=== PATIENT | male | born 1965 | race Two or more races ===

== ENCOUNTER → 2017-07-28 | Outpatient (REF) | payer BC ==
[~2017-07-28] MED LIST: BACITAB PO; CEPA0.1S MT; CEPA5.4L2 MT; CLIN150C14 PO; LIDO1SOL7 SSP; MOTR200T44 PO; TOPI50TA9 PO
[2017-08-01 08:12] LABS: HSV TYPE I IgM AB <1:10 titer (<1:10); HSV TYPE II IgM ABY <1:10 titer (<1:10)
== END ==
LOC: M SFHCLERA 13:51
PROVIDERS: ATTEND Nurse Practitioner Family
DX: K13.79 Other lesions of oral mucosa (principal)

== ENCOUNTER → 2017-08-24 | Outpatient (CLI) | payer BC ==
[2017-08-24 12:24] LABS: BLOOD UREA NITROGEN 16 MG/DL (7-18); CREATININE FOR GFR 0.81 MG/DL (0.70-1.30); GLOMERULAR FILTRATION RATE > 60.0 (>56)
== END ==
LOC: M SMT 11:08
PROVIDERS: ATTEND Physician Assistant Medical
DX: I11.9 Hypertensive heart disease without heart failure (principal)

== ENCOUNTER 2019-12-09 05:30 | Emergency (ER) | payer BC, OTHER, SELFPAY ==
[~2019-12-09 05:30] MED LIST changes: -LIDO1SOL7 SSP; +LIDO1SOL8 SSP
--- NOTE | 2019-12-09 06:04 | REPVR ---
PROCEDURE INFORMATION: Exam: CT Head Without Contrast Exam date and time: 12/09/2019 5:49 AM Age: 54 years old Clinical indication: Numbness / parasthesia; Additional info: Stroke symptoms TECHNIQUE: Imaging protocol: Computed tomography of the head without contrast. Radiation optimization: All CT scans at this facility use at least one of these dose optimization techniques: automated exposure control; mA and/or kV adjustment per patient size (includes targeted exams where dose is matched to clinical indication); or iterative reconstruction. Other technique: STROKE PROTOCOL was implemented. COMPARISON: No relevant prior studies available. FINDINGS: Brain: Focal multi lobular marginated intracranial hemorrhage of the left basal ganglia and extending laterally. Hematoma measures 2.9 by 2.7 by 2.7 cm. Likely developing rim of edema. No midline shift. Ventricles: Normal. No ventriculomegaly. Bones/joints: Unremarkable. No acute fracture. Sinuses: Mucosal thickening and/or mucous retention cyst right maxillary sinus. Mastoid air cells: Visualized mastoid air cells are well aerated. Soft tissues: Unremarkable. Vasculature: Intracranial vascular calcification. Other findings: Mild hemispheric volume loss. IMPRESSION: 1. Left acute basal ganglia intracranial hemorrhage. 2. Mild hemispheric volume loss. 3. Intracranial vascular calcification. Electronically signed by: Shereen Vidal On 12/09/2019 06:06:22 AM
[2019-12-09 06:12] LABS: BASO % 0.7 % (0.0-1.0); EOS # 0.2 10^3/uL (0.0-0.5); EOS % 3.4 % (0.0-3.0); HEMATOCRIT 36.2 % (42.0-52.0); HEMOGLOBIN 11.8 g/dl (13.5-17.5); LYMPH # 1.7 10^3/uL (1.5-5.0); LYMPH % 28.3 % (24.0-44.0); MEAN CORPUSCULAR HEMOGLOBIN 30.2 pg (27.0-33.0); MEAN CORPUSCULAR HGB CONC 32.6 g/dl (32.0-36.5); MEAN CORPUSCULAR VOLUME 92.6 fl (80.0-96.0); MONO # 0.6 10^3/uL (0.0-0.8); NEUTROPHILS # 3.6 10^3/uL (1.5-8.5); NEUTROPHILS % 58.3 % (36.0-66.0); PLATELET COUNT, AUTOMATED 145 10^3/uL (150-450); RED BLOOD COUNT 3.91 10^6/uL (4.30-6.10); WHITE BLOOD COUNT 6.1 10^3/uL (4.0-10.0)
[2019-12-09] MEDS ORDERED: niCARdipine IV 40 MG in IV 1 EA IV SCH (06:15)
[2019-12-09 06:21] LABS: INR 1.11
[2019-12-09 06:22] LABS: PARTIAL THROMBOPLASTIN TIME 27.8 SECONDS (25.0-38.4)
[2019-12-09 06:32] LABS: CK-MB VALUE MASS 1.7 NG/ML (<3.6); CPK CREATINE PHOSPHOKINASE 139 U/L (39-308); MB/CK RELATIVE INDEX 1.22 (< OR =4); TROPONIN I < 0.02 NG/ML (< 0.10)
[2019-12-09 07:11] VITALS: BP 147/84
--- NOTE | 2019-12-09 07:27 | REP ---
Portable chest, 06:00 a.m., single AP view with the patient upright: Comparison is the chest CT dated 02/10/2011. The lung sharif are clear. The cardiac size is normal. The paulina, mediastinum, and skeletal structures are unremarkable. Impression: Negative portable chest. Electronically Signed by Zurdo Cardenas MD 12/09/2019 07:18 A
--- NOTE | 2019-12-09 12:35 | ECGEPIP ---
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
== END 2019-12-09 07:13 | disposition short-term general hospital (02) ==
LOC: M ED 05:30
DX: I61.9 Nontraumatic intracerebral hemorrhage, unspecified (principal); I45.89 Other specified conduction disorders; I67.2 Cerebral atherosclerosis; R47.9 Unspecified speech disturbances; I10 Essential (primary) hypertension; E78.5 Hyperlipidemia, unspecified; E66.9 Obesity, unspecified; Z98.84 Bariatric surgery status

== ENCOUNTER 2019-12-14 15:21 | Inpatient (IN) | payer SELFPAY ==
[~2019-12-14] VITALS: Ht 182.9 cm; Wt 140.2 kg
[~2019-12-14 15:21] MED LIST changes: -LIDO1SOL8 SSP; +LIDO2SOL17 SSP
[2019-12-14 17:10] VITALS: BP 132/92
--- NOTE | 2019-12-14 18:09 | HPEPDOC ---
General Date of Admission 12/14/19 Date of Service: Dec 14, 2019 Chief Complaint The patient is a 54-year-old male admitted with a reason for visit of Hemorrhagic Cva. Source: Patient Exam Limitations: No limitations Timing/Duration: Day(s), Week(s) Severity: Moderate Associated Symptoms: Weakness History of Present Illness Patient is 54 years old male with past mental history of diabetes, hypertension, gastric bypass surgery in 2011, hemorrhagic stroke, morbid obesity was transferred to [facility] from [facility] for physical therapy and acute rehabilitation evaluation. On 12/09/19 patient was diagnosed with left basal ganglia hemorrhagic stroke with right sided hemiparesis. Head CT showed hyperdensity in the left basal ganglia 3.1 cm to 2.4 cm with surrounding edema. Most likely patient developed hemorrhagic stroke due to uncontrolled hypertension. When I saw patient in the room patient stated that he denied any fever, chills, nausea, vomiting, diarrhea or dysuria. Home Medications Scheduled Amlodipine Besylate (Amlodipine Besylate) 10 Mg Tablet, 10 MG PO DAILY, (Reported) Lisinopril (Lisinopril) 5 Mg Tablet, 5 MG PO DAILY, (Reported) Scheduled PRN Docusate Sodium (Colace) 100 Mg Capsule, 100 MG PO BID PRN for CONSTIPATION, (Reported) Allergies Coded Allergies: No Known Drug Allergies (Verified Allergy, Unknown, 12/09/19) Past Medical History Medical History Hypertension, morbid obesity, diabetes Surgical History Gastric bypass surgery in 2011 Family History Father from emphysema, mother from heart attack Social History * Smoker: Denies Alcohol: Denies Drugs: denies A-FIB/CHADSVASC A-FIB History Current/History of A-Fib/PAF?: No Current PO Anticoag Therapy: No Review of Systems Constitutional: Denies: Chills, Fever Eyes: Denies: Pain, Vision change ENT: Denies: Head Aches Skin: Denies: Rash, Lesions Pulmonary: Denies: Dyspnea, Cough Cardiovascular: Denies: Chest Pain Gastrointestinal: Denies: Nausea Genitourinary: Denies: Frequency Hematologic: Denies: Bruising Endocrine: Denies: Polydipsia, Polyphagia Musculoskeletal: Denies: Neck Pain Neurological: Reports: Weakness (right-sided hemiparesis,) Psych: Reports: Mood Normal Physical Examination General Exam: Positive: Alert, Cooperative Eye Exam: Positive: PERRLA ENT Exam: Positive: Atraumatic Neck Exam: Positive: Supple; Negative: JVD Chest Exam: Positive: Clear to auscultation Heart Exam: Positive: Rate Normal Telemetry: Positive: No significant arrhythmia Abdomen Exam: Positive: Normal bowel sounds Extremity Exam: Negative: Clubbing, Cyanosis Skin Exam: Positive: Nl turgor and temperature Neuro Exam: Positive: Other (right-sided hemiparesis, right sided mouth droop, sensation intact, dysarthria) Psych Exam: Positive: Mental status NL Vital Signs RR 14 Assessment/Plan Patient is 54 years old male with past mental history of diabetes, hypertension, gastric bypass surgery in 2011, hemorrhagic stroke, morbid obesity was transferred to [facility] from [facility] for physical therapy and acute rehabilitation evaluation. Problems (1) Intracerebral hemorrhage Status: Resolved Problem Text: PMR evaluation Most likely patient developed intracranial hemorrhage due to uncontrolled hypertension Continue to control blood pressure (2) Diabetes Status: Chronic Problem Text: Recent HbA1c 6.2, patient was diagnosed with prediabetes Insulin sliding scale Diabetes diet (3) HTN (hypertension) Status: Chronic Problem Text: Continue amlodipine and lisinopril, atorvastatin Will check lipid profile Plan / VTE VTE Prophylaxis Ordered?: Yes KAT AUGUSTE DO Dec 14, 2019 18:09
[2019-12-14] MEDS ORDERED: DEXTROSE 50% 50 ML SYRINGE IV PRN (18:15)
[2019-12-14] MEDS ORDERED: GLUCAGON FOR INJ 1 MG VIAL (J1610) SC PRN (18:15)
[2019-12-14] MEDS ORDERED: GLUCOSE 4 GM CHEW TABLET PO PRN (18:15)
[2019-12-14] MEDS ORDERED: LISI-542 PO (18:38)
[2019-12-14] MEDS ORDERED: COLA100C5 PO (18:38)
[2019-12-14] MEDS ORDERED: AMLO10TA5 PO (18:38)
[2019-12-14 19:43] LABS: CHOLESTEROL RISK RATIO 3.609 (<5)
[2019-12-14] MEDS: HumaLOG INSULIN (NovoLOG) PER UNIT SC SCH (20:52)
[2019-12-14 22:00] VITALS: BP 122/76
[2019-12-15] MEDS ORDERED: DOCUSATE SODIUM 100 MG CAP PO PRN (05:00)
[2019-12-15] MEDS ORDERED: MOM 30ML SUSPENSION UDC PO PRN (05:00)
[2019-12-15] MEDS ORDERED: SENOKOT S TAB PO PRN (05:00)
[2019-12-15 06:00] VITALS: BP 134/78
[2019-12-15 06:15] LABS: HEMATOCRIT 46.2 % (42.0-52.0); HEMOGLOBIN 14.8 g/dl (13.5-17.5); MEAN CORPUSCULAR HEMOGLOBIN 29.8 pg (27.0-33.0); PLATELET COUNT, AUTOMATED 190 10^3/uL (150-450); RED BLOOD COUNT 4.97 10^6/uL (4.30-6.10); WHITE BLOOD COUNT 8.9 10^3/uL (4.0-10.0)
[2019-12-15 06:25] LABS: BLOOD UREA NITROGEN 28 MG/DL (7-18); CALCIUM LEVEL 8.9 MG/DL (8.5-10.1); CARBON DIOXIDE LEVEL 28 MEQ/L (21-32); CHLORIDE LEVEL 102 MEQ/L (98-107); CREATININE FOR GFR 0.86 MG/DL (0.70-1.30); GLOMERULAR FILTRATION RATE > 60.0 (>56); GLUCOSE, FASTING 134 MG/DL (70-100); POTASSIUM SERUM 4.2 MEQ/L (3.5-5.1); SODIUM LEVEL 137 MEQ/L (136-145)
[2019-12-15] MEDS ORDERED: ENOXAPARIN 40 MG/0.4 ML SYRINGE (J1650) SC SCH (09:00)
[2019-12-15] MEDS: HumaLOG INSULIN (NovoLOG) PER UNIT SC SCH ×4 (09:06→21:00)
[2019-12-15] MEDS: HEPARIN SOD (PORCINE) 5000 UNITS/ML VIAL (J1644 PER 1000UNITS) SQ SCH ×2 (09:08→21:15)
[2019-12-15] MEDS: amLODIPine 10 MG TAB PO SCH (09:08)
[2019-12-15] MEDS: ATORVASTATIN 20 MG TAB PO SCH (09:08)
[2019-12-15] MEDS: lisinopriL 5 MG TAB PO SCH (09:09)
[2019-12-15] MEDS ORDERED: HYDROCORTISONE 1% CREAM 30 GM TOP ONE (13:00)
[2019-12-15 14:00] VITALS: BP 119/64
--- NOTE | 2019-12-15 15:03 | IPNPDOC ---
Text Note Date of Service The patient was seen on 12/15/19. NOTE Subjective: Patient complains of depressed mood, lack of energy, lack of motiv ation. He is very sad about what happened with him. Objective: Morbidly obese male in moderate distress HEENT: Normocephalic, atraumatic. Mucous members moist and pink CARDIOVASCULAR: Regular rate and rhythm. No murmurs, rubs or gallops. Radial pulses are intact. There is no lower extremity edema LUNGS: Diminished lung sounds ABDOMEN: Abdomen is soft and nontender. MUSCULOSKELETAL: Range of motion is intact in all 4 extremities NEUROLOGICAL: Right hemiparesis, right sided mouth droop, sensation intact, dysarthria Assessment/Plan Patient is 54 years old male with past mental history of diabetes, hypertension, gastric bypass surgery in 2011, hemorrhagic stroke, morbid obesity was transferred to [facility] from [facility] for physical therapy and acute rehabilitation evaluation. Problems Intracerebral hemorrhage/CVA PMR evaluation Most likely patient developed intracranial hemorrhage due to uncontrolled hypertension Continue to control blood pressure (2) Diabetes Recent HbA1c 6.2, patient was diagnosed with prediabetes Insulin sliding scale Diabetes diet (3) HTN (hypertension) Blood pressures under control Continue amlodipine, lisinopril, atorvastatin Depression Patient will benefit from participation in the group therapy I started sertraline VS,Fishbone, I+O VS, Fishbone, I+O Laboratory Tests 12/15/19 05:30 Vital Signs Date Time Temp Pulse Resp B/P (MAP) Pulse Ox O2 Delivery O2 Flow Rate FiO2 12/15/19 14:00 99.0 86 18 119/64 (82) 94 Room Air I&O- Last 24 Hours up to 6 AM 12/15/19 05:59 Intake Total 360 ml Output Total 450 ml Balance -90 ml KAT AUGUSTE DO Dec 15, 2019 15:03
[2019-12-15] MEDS ORDERED: SERTRALINE HCL 25 MG TABLET PO ONE (16:00)
[2019-12-15 22:00] VITALS: BP 127/80
[2019-12-16 06:00] VITALS: BP 124/77
[2019-12-16] MEDS: HumaLOG INSULIN (NovoLOG) PER UNIT SC SCH ×4 (08:36→21:00)
[2019-12-16] MEDS: HEPARIN SOD (PORCINE) 5000 UNITS/ML VIAL (J1644 PER 1000UNITS) SQ SCH ×2 (08:36→21:56)
[2019-12-16] MEDS: ATORVASTATIN 20 MG TAB PO SCH (08:39)
[2019-12-16] MEDS: amLODIPine 10 MG TAB PO SCH (08:39)
[2019-12-16] MEDS: SERTRALINE HCL 25 MG TABLET PO SCH (08:40)
[2019-12-16] MEDS: lisinopriL 5 MG TAB PO SCH (08:40)
[2019-12-16] MEDS ORDERED: VENLAFAXINE 37.5 MG TAB PO SCH (09:00)
[2019-12-16 14:00] VITALS: BP 130/79
--- NOTE | 2019-12-16 14:55 | IPNPDOC ---
Subjective Date Seen The patient was seen on 12/16/19. Subjective Chief Complaint/HPI Mr Cho is a 54 year old male who was transferred to [facility] from [facility] for acute rehab secondary to a L-sided Hemorrhagic CVA on Monday. Pt stated he was at home when he noticed that his right side was numb and had become paralyzed. Pt stated he has seen no improvement in his right sided paralysis since Monday. He reported he was transported to the ED at [facility] within 20 minutes of Sx onset. Pt is seen sitting up in a recliner in his room. He has denied any new or worsening symptoms at this time. General: Denies: Chills, Night Sweats, Fatigue, Malaise Constitutional: Denies: Chills, Fever, Night Sweats Eyes: Denies: Pain ENT: Denies: Head Aches Skin: Denies: Rash Pulmonary: Denies: Dyspnea, Cough Cardiovascular: Denies: Chest Pain, Palpitations, Orthopnea, Paroxysmal Noc. Dyspnea, Lt Headedness Gastrointestinal: Denies: Nausea, Vomiting, Abdominal Pain, Diarrhea, Constipation Genitourinary: Denies: Dysuria, Retention Hematologic: Denies: Bruising Musculoskeletal: Denies: Neck Pain, Back Pain, Joint Pain, Muscle Pain, Spasms Neurological: Reports: Weakness, Numbness, Change in speech; Denies: Confusion Psych: Reports: Mood Normal Objective Physical Examination General Exam: Positive: Alert, Cooperative, No Acute Distress Eye Exam: Positive: Conjunctiva & lids normal; Negative: Sclera icteric ENT Exam: Positive: Atraumatic, Mucous membr. moist/pink, Pharynx Normal, Tongue Midline Neck Exam: Positive: Supple; Negative: JVD, thyromegaly Chest Exam: Positive: Clear to auscultation, Normal air movement Heart Exam: Positive: Rate Normal, Regular Rhythm, Normal S1, Normal S2 Telemetry: Positive: No significant arrhythmia Abdomen Exam: Positive: Normal bowel sounds, Soft; Negative: Tenderness Extremity Exam: Positive: Edema (b/l LEs); Negative: Clubbing, Cyanosis Skin Exam: Positive: Nl turgor and temperature Neuro Exam: Positive: Other (right-sided hemiparesis, right sided mouth droop, sensation intact, dysarthria); Negative: Normal Gait, Normal Speech, Strength at 5/5 X4 ext (rigth sided hemiparesis ) Psych Exam: Positive: Mood NL Assessment /Plan Assessment Mr Cho is a 54 year old male who was transferred to [facility] from [facility] for acute rehab secondary to a Hemorrhagic CVA on Monday. Pt stated he was at home when he noticed that his right side was numb and had become paralyzed. Pt stated he has no improvement in his right sided paralysis since Monday. He reported he was transported to the ED at [facility] within 20 minutes of Sx onset. Pt has a PMHx which includes: DM, HTN, Morbid obesity with gastric bypass 2011, Hemorrhagic stroke. CT Head w/out contrast IMPRESSION: "1. Left acute basal ganglia intracranial hemorrhage. 2. Mild hemispheric volume loss. 3. Intracranial vascular calcification." Left CVA, with right sided hemiparesis - likely 2/2 uncontrolled HTN - continue to maintain good BP control - ARU - pt would be a great referral for ARU, however he is self-pay. Honey botello check to see if any services are available for him within the hospital. HTN - currently well-controlled - continue Amlodipine, Lisinopril HLD - LDL 93; goal <70 with recent CVA and DM - Recommend, increasing dietary fiber; close re-check with PCP to ensure pt attains goal or medications adjusted prn DMII - continue ISS with achs - continue diabetic diet Depression - currently on Sertraline 25mg. Will need outpt f/u within 6 weeks. Plan/VTE VTE Prophylaxis Ordered?: Yes (Heparin ) VS, I&O, 24H, Fishbone Vital Signs/I&O Vital Signs Date Time Temp Pulse Resp B/P (MAP) Pulse Ox O2 Delivery O2 Flow Rate FiO2 12/16/19 08:39 149/91 12/16/19 06:00 98.7 70 20 93 Room Air I&O- Last 24 Hours up to 6 AM 12/16/19 06:00 Intake Total 1060 ml Output Total 1325 ml Balance -265 ml Laboratory Data 24H LABS Laboratory Tests 2 12/15/19 16:55: Bedside Glucose (Misc Panel) 102 12/15/19 20:34: Bedside Glucose (Misc Panel) 130H 12/16/19 06:02: Bedside Glucose (Misc Panel) 127H 12/16/19 11:27: Bedside Glucose (Misc Panel) 146H BERTRAM VARGAS PA-C Dec 16, 2019 14:24
[2019-12-16 22:00] VITALS: BP 129/77
[2019-12-17 06:00] VITALS: BP 131/79
[2019-12-17 08:53] VITALS: BP 131/79
[2019-12-17] MEDS: amLODIPine 10 MG TAB PO SCH (08:53)
[2019-12-17] MEDS: lisinopriL 5 MG TAB PO SCH (08:53)
[2019-12-17] MEDS: SERTRALINE HCL 25 MG TABLET PO SCH (08:53)
[2019-12-17] MEDS: ATORVASTATIN 20 MG TAB PO SCH (08:53)
[2019-12-17] MEDS: HumaLOG INSULIN (NovoLOG) PER UNIT SC SCH ×2 (08:54→12:15)
[2019-12-17] MEDS: HEPARIN SOD (PORCINE) 5000 UNITS/ML VIAL (J1644 PER 1000UNITS) SQ SCH (08:54)
[2019-12-17] MEDS ORDERED: SERT25TA21 PO (14:37)
[2019-12-17] MEDS ORDERED: SENN-52 PO (14:37)
[2019-12-17] MEDS ORDERED: ATOR1TAB21 PO (14:37)
[2019-12-17] MEDS ORDERED: MOM30SS2 PO (14:37)
--- NOTE | 2019-12-17 19:29 | DS.PDOC ---
Discharge Summary General Date of Admission Dec 14, 2019 at 17:34 Date of Discharge 12/17/19 Discharge Summary PROCEDURES PERFORMED DURING STAY: [None]. DISCHARGE DIAGNOSES: Left basal ganglia hemorrhagic stroke with right sided hemiplegia Newly diagnosed hypertension Morbid obesity Prediabetes. Depression Hyperlipidemia COMPLICATIONS/CHIEF COMPLAINT: Htn/Intracerebral Hemorrhage. HISTORY OF PRESENT ILLNESS: see history and physical HOSPITAL COURSE: Mr Cho is a 54 year old male who was transferred to [facility] from [facility] for acute rehab secondary to a Hemorrhagic CVA on Monday. Pt stated he was at home when he noticed that his right side was numb and had become paralyzed. Pt stated he has no improvement in his right sided paralysis since Monday. He reported he was transported to the ED at [facility] within 20 minutes of Sx onset. Pt has a PMHx which includes: DM, HTN, Morbid obesity with gastric bypass 2011, Hemorrhagic stroke. CT Head w/out contrast IMPRESSION: "1. Left acute basal ganglia intracranial hemorrhage. 2. Mild hemispheric volume loss. 3. Intracranial vascular calcification." Left CVA, with right sided hemiparesis - likely 2/2 uncontrolled HTN - continue to maintain good BP control - To ARU HTN - currently well-controlled - continue Amlodipine, Lisinopril HLD - LDL 93; goal <70 with recent CVA and DM - Recommend, increasing dietary fiber; close re-check with PCP to ensure pt attains goal or medications adjusted prn Prediabetes - continue ISS with achs - continue diabetic diet - Aic of 6.2 Depression - currently on Sertraline 25mg. Will need outpt f/u within 6 weeks. Morbid obesity BMI of 41.9 dietary and lifestyle modification DISCHARGE MEDICATIONS: Please see below. ALLERGIES: Please see below. PHYSICAL EXAMINATION ON DISCHARGE: VITAL SIGNS: Please see below. General Exam: Positive: Alert, Cooperative, No Acute Distress Eye Exam: Positive: Conjunctiva & lids normal; facial deviation to left. Negative: Sclera icteric ENT Exam: Positive: Atraumatic, Mucous membr. moist/pink, Pharynx Normal, Tongue Midline Neck Exam: Positive: Supple; Negative: JVD, thyromegaly Chest Exam: Positive: Clear to auscultation, Normal air movement Heart Exam: Positive: Rate Normal, Regular Rhythm, Normal S1, Normal S2 Telemetry: Positive: No significant arrhythmia, no rub , murmur or gallop Abdomen Exam: Positive: Normal bowel sounds, Soft; Negative: Tenderness Extremity Exam: Positive: Edema (b/l LEs); Negative: Clubbing, Cyanosis Skin Exam: Positive: Nl turgor and temperature Neuro Exam: Positive: Other (right-sided hemiparesis, right sided mouth droop, sensation intact, dysarthria); Negative: Normal Gait, Normal Speech, Strength at 5/5 X4 ext (rigth sided hemiparesis ) Psych Exam: Positive: Mood NL LABORATORY DATA: Please see below. ACTIVITY: [As tolerated]. DIET: Carb consistent diet, 2 gm sodium diet. DISPOSITION: 62 D/T Rehab Facility. DISCHARGE CONDITION: [Stable]. TIME SPENT ON DISCHARGE: 35 minutes. Vital Signs/I&Os Vital Signs Date Time Temp Pulse Resp B/P (MAP) Pulse Ox O2 Delivery O2 Flow Rate FiO2 12/17/19 08:53 131/79 12/17/19 06:00 98.5 86 17 95 12/16/19 22:00 Room Air I&O- Last 24 Hours up to 6 AM 12/17/19 06:00 Intake Total 2160 ml Output Total 1675 ml Balance 485 ml Laboratory Data Labs 24H Laboratory Tests 2 12/16/19 19:54: Bedside Glucose (Misc Panel) 152H 12/17/19 05:26: Bedside Glucose (Misc Panel) 125H 12/17/19 11:35: Bedside Glucose (Misc Panel) 129H FSBS Laboratory Tests Test 12/16/19 19:54 12/17/19 05:26 12/17/19 11:35 Range/Units Bedside Glucose (Misc Panel) 152 125 129 70-105 MG/DL Discharge Medications Scheduled Amlodipine Besylate (Amlodipine Besylate) 10 Mg Tablet, 10 MG PO DAILY, (Reported) Atorvastatin Calcium (Atorvastatin Calcium) 20 Mg Tablet, 60 MG PO DAILY Lisinopril (Lisinopril) 5 Mg Tablet, 5 MG PO DAILY, (Reported) Sertraline HCl (Sertraline HCl) 25 Mg Tablet, 25 MG PO DAILY Scheduled PRN Docusate Sodium (Colace) 100 Mg Capsule, 100 MG PO BID PRN for CONSTIPATION, (Reported) Magnesium Hydroxide (Milk of Magnesia) 400 Mg/5 Ml Oral.susp, 30 ML PO DAILYPRN PRN for CONSTIPATION Sennosides/Docusate Sodium (Senna Plus Tablet) 1 Each Tablet, 2 TAB PO QHSP PRN for CONSTIPATION Allergies Coded Allergies: No Known Drug Allergies (Verified Allergy, Unknown, 12/09/19) CONRAD WYATT MD Dec 17, 2019 19:05
--- NOTE | 2019-12-17 19:33 | DS.PDOC ---
Discharge Summary General Date of Admission Dec 14, 2019 at 17:34 Date of Discharge 12/17/2019 Discharge Summary PROCEDURES PERFORMED DURING STAY: [None]. ADMITTING DIAGNOSES: Intracerebral hemorrhage Diabetes Hypertension DISCHARGE DIAGNOSES: Left CVA with right sided hemiparesis Hypertension Hyperlipidemia Diabetes, type II Depression COMPLICATIONS/CHIEF COMPLAINT: Htn/Intracerebral Hemorrhage. HISTORY OF PRESENT ILLNESS: "Patient is 54 years old male with past mental history of diabetes, hypertension, gastric bypass surgery in 2011, hemorrhagic stroke, morbid obesity was transferred to [facility] from [facility] for physical therapy and acute rehabilitation evaluation. On 12/09/19 patient was diagnosed with left basal ganglia hemorrhagic stroke with right sided hemiparesis. Head CT showed hyperdensity in the left basal ganglia 3.1 cm to 2.4 cm with surrounding edema. Most likely patient developed hemorrhagic stroke due to uncontrolled hypertension. When I saw patient in the room patient stated that he denied any fever, chills, nausea, vomiting, diarrhea or dysuria." HOSPITAL COURSE: Patient was admitted as noted above. While inpatient he was placed on ISS with achs for diabetic control. His BP was well Controlled with Amlodipine and Lisinopril. Pt Atorvastatin was also continued and FLP completed (see results below). Pt reported depression and was started on Sertraline 25mg. He is to be referred to a PCP to follow-up on his chronic medical illnesses. Pt was medically optimized and transferred to ARU for rehab following his CVA and resultant R sided hemiparesis. DISCHARGE MEDICATIONS: Please see below. ALLERGIES: Please see below. PHYSICAL EXAMINATION ON DISCHARGE: VITAL SIGNS: Please see below. GENERAL: HEENT: NECK: CARDIOVASCULAR EXAMINATION: RESPIRATORY EXAMINATION: ABDOMINAL EXAMINATION: EXTREMITIES: SKIN: NEUROLOGICAL EXAMINATION: PSYCHIATRIC EXAMINATION: LABORATORY DATA: Please see below. IMAGING: Portable CXR "Impression: Negative portable chest" Head CT w/out contrast "FINDINGS: Brain: Focal multi lobular marginated intracranial hemorrhage of the left basal ganglia and extending laterally. Hematoma measures 2.9 by 2.7 by 2.7 cm. Likely developing rim of edema. No midline shift. Ventricles: Normal. No ventriculomegaly. Bones/joints: Unremarkable. No acute fracture. Sinuses: Mucosal thickening and/or mucous retention cyst right maxillary sinus. Mastoid air cells: Visualized mastoid air cells are well aerated. Soft tissues: Unremarkable. Vasculature: Intracranial vascular calcification. Other findings: Mild hemispheric volume loss. IMPRESSION: 1. Left acute basal ganglia intracranial hemorrhage. 2. Mild hemispheric volume loss. 3. Intracranial vascular calcification." ACTIVITY: [As tolerated]. DIET: Consistent Carbs/Diabetic diet DISCHARGE PLAN: Transfer to ARU DISPOSITION: 62 D/T Rehab Facility. DISCHARGE INSTRUCTIONS: 1. N/A ITEMS TO FOLLOWUP ON ON OUTPATIENT: 1. N/A DISCHARGE CONDITION: [Stable]. TIME SPENT ON DISCHARGE: 32 minutes. Vital Signs/I&Os Vital Signs Date Time Temp Pulse Resp B/P (MAP) Pulse Ox O2 Delivery O2 Flow Rate FiO2 12/17/19 08:53 131/79 12/17/19 06:00 98.5 86 17 95 12/16/19 22:00 Room Air I&O- Last 24 Hours up to 6 AM 12/17/19 05:59 Intake Total 1910 ml Output Total 1275 ml Balance 635 ml Laboratory Data Labs 24H Laboratory Tests 2 12/16/19 19:54: Bedside Glucose (Misc Panel) 152H 12/17/19 05:26: Bedside Glucose (Misc Panel) 125H 12/17/19 11:35: Bedside Glucose (Misc Panel) 129H FSBS Laboratory Tests Test 12/16/19 19:54 12/17/19 05:26 12/17/19 11:35 Range/Units Bedside Glucose (Misc Panel) 152 125 129 70-105 MG/DL Discharge Medications Scheduled Amlodipine Besylate (Amlodipine Besylate) 10 Mg Tablet, 10 MG PO DAILY, (Reported) Atorvastatin Calcium (Atorvastatin Calcium) 20 Mg Tablet, 60 MG PO DAILY Lisinopril (Lisinopril) 5 Mg Tablet, 5 MG PO DAILY, (Reported) Sertraline HCl (Sertraline HCl) 25 Mg Tablet, 25 MG PO DAILY Scheduled PRN Docusate Sodium (Colace) 100 Mg Capsule, 100 MG PO BID PRN for CONSTIPATION, (Reported) Magnesium Hydroxide (Milk of Magnesia) 400 Mg/5 Ml Oral.susp, 30 ML PO DAILYPRN PRN for CONSTIPATION Sennosides/Docusate Sodium (Senna Plus Tablet) 1 Each Tablet, 2 TAB PO QHSP PRN for CONSTIPATION Allergies Coded Allergies: No Known Drug Allergies (Verified Allergy, Unknown, 12/09/19) BERTRAM VARGAS PA-C Dec 17, 2019 19:33
== END 2019-12-17 16:00 | DRG 58 ==
LOC: M MSPAV 17:34
PROVIDERS: ADMIT General Practice; ATTEND Internal Medicine Nephrology
DX: I69.251 Hemiplegia and hemiparesis following other nontraumatic intracranial hemorrhage affecting right dominant side (principal); Z68.41 Body mass index [BMI] 40.0-44.9, adult; I10 Essential (primary) hypertension; E66.01 Morbid (severe) obesity due to excess calories; F32.9 Major depressive disorder, single episode, unspecified; E78.2 Mixed hyperlipidemia; E11.9 Type 2 diabetes mellitus without complications; Z79.899 Other long term (current) drug therapy

== ENCOUNTER 2019-12-17 13:28 | Inpatient (IN) | payer MEDICAID, SELFPAY ==
[~2019-12-17] VITALS: Ht 182.9 cm; Wt 129.8 kg
[~2019-12-17 13:28] MED LIST changes: +AMLO10TA5 PO; +COLA100C5 PO; +LISI-542 PO
[2019-12-17] MEDS ORDERED: ATOR1TAB21 PO (14:37)
[2019-12-17] MEDS ORDERED: SERT25TA21 PO (14:37)
[2019-12-17] MEDS ORDERED: MOM30SS2 PO (14:37)
[2019-12-17] MEDS ORDERED: SENN-52 PO (14:37)
[2019-12-17 16:24] VITALS: BP 139/87
[2019-12-17] MEDS ORDERED: GLUCOSE 4 GM CHEW TABLET PO PRN (17:15)
[2019-12-17] MEDS ORDERED: DEXTROSE 50% 50 ML SYRINGE IV PRN (17:15)
[2019-12-17] MEDS ORDERED: GLUCAGON FOR INJ 1 MG VIAL (J1610) SC PRN (17:15)
[2019-12-17] MEDS: HumaLOG INSULIN (NovoLOG) PER UNIT SC SCH ×2 (17:45→21:00)
[2019-12-17] MEDS: PANTOPRAZOLE 40MG TAB (PROTONIX) PO SCH (17:45)
[2019-12-17 20:00] VITALS: BP 139/87
[2019-12-17] MEDS: REMEDY PHYTOPLEX Z-GUARD PASTE 113GM TUBE (FROM STOREROOM PRODUCT) TOP SCH (21:00)
[2019-12-17] MEDS: HEPARIN SOD (PORCINE) 5000 UNITS/ML VIAL (J1644 PER 1000UNITS) SC SCH (21:08)
[2019-12-17] MEDS: SENOKOT S TAB PO SCH (21:08)
[2019-12-18 06:00] VITALS: BP 125/68
[2019-12-18] MEDS: HumaLOG INSULIN (NovoLOG) PER UNIT SC SCH ×4 (06:37→21:00)
[2019-12-18 06:54] LABS: BASO % 0.5 % (0.0-1.0); EOS # 0.1 10^3/uL (0.0-0.5); EOS % 1.6 % (0.0-3.0); HEMATOCRIT 44.3 % (42.0-52.0); HEMOGLOBIN 14.5 g/dl (13.5-17.5); LYMPH # 1.6 10^3/uL (1.5-5.0); LYMPH % 18.5 % (24.0-44.0); MEAN CORPUSCULAR HEMOGLOBIN 30.2 pg (27.0-33.0); MEAN CORPUSCULAR HGB CONC 32.7 g/dl (32.0-36.5); MEAN CORPUSCULAR VOLUME 92.3 fl (80.0-96.0); MONO % 10.8 % (0.0-5.0); NEUTROPHILS % 68.3 % (36.0-66.0); PLATELET COUNT, AUTOMATED 165 10^3/uL (150-450); WHITE BLOOD COUNT 8.8 10^3/uL (4.0-10.0)
[2019-12-18 07:20] LABS: ALBUMIN 3.5 GM/DL (3.2-5.2); ALT/SGPT 22 U/L (12-78); BILIRUBIN,TOTAL 0.9 MG/DL (0.2-1.0); BLOOD UREA NITROGEN 28 MG/DL (7-18); CALCIUM LEVEL 9.1 MG/DL (8.5-10.1); CARBON DIOXIDE LEVEL 29 MEQ/L (21-32); CHLORIDE LEVEL 101 MEQ/L (98-107); CREATININE FOR GFR 0.84 MG/DL (0.70-1.30); GLOMERULAR FILTRATION RATE > 60.0 (>56); GLUCOSE, FASTING 126 MG/DL (70-100); POTASSIUM SERUM 3.8 MEQ/L (3.5-5.1); SODIUM LEVEL 135 MEQ/L (136-145); TOTAL PROTEIN 7.7 GM/DL (6.4-8.2)
[2019-12-18] MEDS: REMEDY PHYTOPLEX Z-GUARD PASTE 113GM TUBE (FROM STOREROOM PRODUCT) TOP SCH ×3 (09:00→21:09)
[2019-12-18] MEDS: SENOKOT S TAB PO SCH ×2 (09:37→21:04)
[2019-12-18] MEDS: PANTOPRAZOLE 40MG TAB (PROTONIX) PO SCH (09:37)
[2019-12-18] MEDS: amLODIPine 10 MG TAB PO SCH (09:37)
[2019-12-18] MEDS: ATORVASTATIN 20 MG TAB PO SCH (09:38)
[2019-12-18] MEDS: lisinopriL 5 MG TAB PO SCH (09:38)
[2019-12-18] MEDS: SERTRALINE HCL 25 MG TABLET PO SCH (09:38)
[2019-12-18] MEDS: HEPARIN SOD (PORCINE) 5000 UNITS/ML VIAL (J1644 PER 1000UNITS) SC SCH ×2 (09:38→21:04)
[2019-12-18 14:00] VITALS: BP 140/82
--- NOTE | 2019-12-18 14:20 | IPNPDOC ---
Text Note Date of Service The patient was seen on 12/18/19. NOTE Subjective Chief Complaint/HPI Mr Cho is a 54 year old male who was transferred to [facility] from [facility] for acute rehab secondary to a L-sided Hemorrhagic CVA on Monday. Pt stated he was at home when he noticed that his right side was numb and had become paralyzed. Pt stated he has seen no improvement in his right sided paralysis since Monday. He reported he was transported to the ED at [facility] within 20 minutes of Sx onset. Pt is seen in the gym this morning. Today is his first day of rehab and he denied any new or worsening symptoms at this time. Objective Physical Examination General Exam: Positive: Alert, Cooperative, No Acute Distress Eye Exam: Positive: Conjunctiva & lids normal; Negative: Sclera icteric ENT Exam: Positive: Atraumatic, Mucous membr. moist/pink, Pharynx Normal, Tongue Midline Neck Exam: Positive: Supple; Negative: JVD, thyromegaly Chest Exam: Positive: Clear to auscultation, Normal air movement Heart Exam: Positive: Rate Normal, Regular Rhythm, Normal S1, Normal S2 Telemetry: Positive: No significant arrhythmia Abdomen Exam: Positive: Normal bowel sounds, Soft; Negative: Tenderness Extremity Exam: Positive: Edema (b/l LEs); Negative: Clubbing, Cyanosis Skin Exam: Positive: Nl turgor and temperature Neuro Exam: Positive: Other (right-sided hemiparesis, right sided mouth droop, sensation intact, dysarthria); Negative: Normal Gait, Normal Speech, Strength at 5/5 X4 ext (right sided hemiparesis ) Psych Exam: Positive: Mood NL Assessment /Plan Assessment Mr Cho is a 54 year old male who was transferred to [facility] from [facility] for acute rehab secondary to a Hemorrhagic CVA on Monday. Pt stated he was at home when he noticed that his right side was numb and had become paralyzed. Pt stated he has no improvement in his right sided paralysis since Monday. He reported he was transported to the ED at [facility] within 20 minutes of Sx onset. Pt has a PMHx which includes: DM, HTN, Morbid obesity with gastric bypass 2011, Hemorrhagic stroke. CT Head w/out contrast IMPRESSION: "1. Left acute basal ganglia intracranial hemorrhage. 2. Mild hemispheric volume loss. 3. Intracranial vascular calcification." Left CVA, with right sided hemiparesis - likely 2/2 uncontrolled HTN - continue to maintain good BP control - transferred to ARU; continued management per Dr. Lira HTN - currently well-controlled - continue Amlodipine, Lisinopril HLD - LDL 93; goal <70 with recent CVA and DM - Recommend, increasing dietary fiber; close f/u with PCP DMII - continue ISS with achs - continue diabetic diet Depression - currently on Sertraline 25mg. Will need outpt f/u within 6 weeks. VS,Fishbone, I+O VS, Fishbone, I+O Laboratory Tests 12/18/19 06:30 Vital Signs Date Time Temp Pulse Resp B/P (MAP) Pulse Ox O2 Delivery O2 Flow Rate FiO2 12/18/19 14:00 98.4 86 18 140/82 (101) 91 Room Air I&O- Last 24 Hours up to 6 AM 12/18/19 05:59 Intake Total 100 ml Output Total 350 ml Balance -250 ml BERTRAM VARGAS PA-C Dec 18, 2019 14:20
--- NOTE | 2019-12-18 14:34 | HPEPDOC ---
Asset Card Clerk Note DATE OF ADMISSION: 12-17-19 DATE OF SERVICE: 12-18-19 TIME OF ADMISSION: Please refer to physician's admission order. SOURCE OF ADMISSION INFORMATION: [facility] record and patient CHIEF COMPLAINT: stroke HISTORY OF PRESENT ILLNESS: 54M pmh HTN, gastric bypass 2011, morbid obesity presented to [facility] ED on 12-09-19 with right sided weakness, with CTH showing, Left acute basal ganglia intracranial hemorrhage. He was transferred to [facility] for further management and readmitted to [facility] on 12-14-19 where he was continued to be monitored for elevated BPs and started on an anti-depressant. He blood pressure medications were adjusted for persistent elevations and he was started on insulin sliding scale coverage for his newly diagnosed pre-diabetes. He was evaluated by therapy, had significant impairment sin mobility and ADL management and deemed medically appropriate for discharge to ARU on 12-17-19. REVIEW OF SYSTEMS: The following is a completed review of systems and has been reviewed. Review of systems otherwise unremarkable. PAIN: Patient self reports no pain EYES: No recent vision changes EARS, NOSE, & THROAT: No throat pain, or dysphagia, or rhinorrhea CARDIOVASCULAR: Denies chest pain or palpitations PULMONARY: Denies shortness of breath GASTROINTESTINAL:+ fecal incontinence GENITOURINARY: +urinary incontinence MUSCULOSKELETAL: right sided paresis NEUROLOGICAL:right sided paresis HEMATOLOGICAL: denies easy bruising SKIN: denies rash PSYCHIATRIC: Unremarkable All other review of systems found to be negative. PAST MEDICAL HISTORY: as per HPI PAST SURGICAL HISTORY: as per HPI ALLERGIES: Please see below. MEDICATIONS: Please see below. SOCIAL HISTORY: no ETOH, illicit drugs, smoking DIET: low salt, consistent carbs PHYSICAL EXAMINATION: VITAL SIGNS: Please see below. GENERAL: Pleasant and cooperative. No acute distress. HEENT: PERRL. Extraocular movements intact. Clear conjunctiva, +right sided facial droop CARDIOVASCULAR: Regular rate and rhythm. No murmurs, rubs, or gallops LUNGS: Clear to auscultation bilaterally. No wheezes. No rhonchi ABDOMEN: Soft, nontender, nondistended. Positive bowel sounds. Normal active bowel sounds NEUROLOGICAL: Alert and oriented times three. Cranial nerves II through XII grossly intact. Sensation grossly intact EXTREMITIES: 5\5 strength left upper extremities. Flaccid RUE, 0\5 strength right lower extremity except for trace hip abduction. 5/5 strength in left lower extremity. SKIN: blanchable sacral erythema LABORATORY DATA: Please see below. IMAGING:Imaging documentation personally reviewed by record FUNCTIONAL STATUS: Premorbid: Independent with all activities of daily life as well as mobility On Admission: Mod-Max assist for bed mobility, functional transfers, dressing, toileting GOALS: Mod-I from wheelchair level, functional transfers, dressing, toileting, supervision for bathing, medical optimization ASSESSMENT:54-year-old M with past medical history of HTN who presents status post left basal ganglia ICH PLAN: 1. Rehab- PT/OT advance trunk control, bed mobility, wheelchair independence, maintain ROM al 4 limbs and practice joint protection using sling for right arm and AFO for passive stretch- ok to trial Estim- roho cushion -SHINGLER- cog eval and re-evaluate for swallow 2. Neuro: s/p left basal ganglia ICH- off antiplatelet therapy -c/u BP management and statin for secondary stroke prevention 3. Cardiac: HTN-monitor BPs and adjust prn, c/u Amlodipine and lisinopril- medicine consulted to assist in management 4. Resp: encourage incentive spirometry, monitor for infection 5. Endo: pre-diabetic, c/u ISS 6. GI ppx: protonix 7. DVT ppx: heparin and TEds 8. Skin: barrier cream at least TID, orders in place for frequent skin checks in setting of urinary and fecal incontinence 9. Psych: c/u ZOloft for depression and will help with motor recovery in stroke 10. Dispo TBD POST ADMISSION PHYSICIAN EVALUATION: Medical and functional status: Description of medical status, medical assessment: As above. Rehabilitation diagnosis and current and prior cold morbid medical conditions as above. Risk of complications and plans to mitigate them as above. Description of functional status current status is as above. Prior status as above. Status compared to preadmission: There are no clinically significant differences between the patient's current status and the information described on the preadmission screening document. Treatment plan anticipated: Treatment plan is as described above. Required disciplines including physical therapy, occupational therapy, others as noted above. Intensity of services: 3 hours a day, 6 days a week. Special considerations: There are no specific special or safety considerations that would likely preclude immediate implementation of an intensive rehabilitation program or subsequently influence the plan of care. ATTESTATION: Considering all the information above, it is my best judgment that this patient requires intensive rehabilitation therapy as described above and an inpatient hospital environment due to the complexity of nursing, medical, and rehabilitation needs required by the patient. Furthermore, this patient can reasonably be expected to participate in an benefit from an inpatient rehabilitation stay with an interdisciplinary team approach to the delivery of rehabilitation care under the direction and supervision of rehabilitation physician. PROGNOSIS: good ESTIMATED LENGTH OF STAY:28-32 days. PROJECTED DISCHARGE DESTINATION: Home with family support and any durable medical equipment required to increase functional safety and mobility. TIME SPENT COUNSELING AND COORDINATING INITIAL CARE: Greater than 70 minutes. Vital Signs Vital Sign - Last 24 Hours 12/17/19 12/17/19 12/18/19 12/18/19 16:24 20:00 06:00 09:37 Temp 99.2 98.2 98.0 Pulse 70 82 69 69 Resp 18 18 18 B/P (MAP) 139/87 (104) 139/87 (104) 125/68 (87) 125/68 Pulse Ox 92 95 91 O2 Delivery Room Air Room Air Room Air 12/18/19 09:38 B/P (MAP) 125/68 Laboratory Data CBC/BMP Laboratory Tests 12/18/19 06:30 Labs 24H Laboratory Tests 2 12/17/19 16:25: Bedside Glucose (Misc Panel) 128H 12/17/19 19:40: Bedside Glucose (Misc Panel) 185H 12/18/19 06:08: Bedside Glucose (Misc Panel) 136H 12/18/19 06:30: Immature Granulocyte % (Auto) 0.3, Neutrophils (%) (Auto) 68.3H, Lymphocytes (%) (Auto) 18.5L, Monocytes (%) (Auto) 10.8H, Eosinophils (%) (Auto) 1.6, Basophils (%) (Auto) 0.5, Neutrophils # (Auto) 6.0, Lymphocytes # (Auto) 1.6, Monocytes # (Auto) 1.0H, Eosinophils # (Auto) 0.1, Basophils # (Auto) 0.0, Nucleated Red Blood Cells % (auto) 0.0, Anion Gap 5L, Glomerular Filtration Rate > 60.0, Calcium Level 9.1, Total Bilirubin 0.9, Aspartate Amino Transf (AST/SGOT) 17, Alanine Aminotransferase (ALT/SGPT) 22, Alkaline Phosphatase 101, Total Protein 7.7, Albumin 3.5, Albumin/Globulin Ratio 0.83L 12/18/19 11:58: Bedside Glucose (Misc Panel) 152H FSBS Laboratory Tests Test 12/17/19 16:25 12/17/19 19:40 12/18/19 06:08 12/18/19 11:58 Range/Units Bedside Glucose (Misc Panel) 128 185 136 152 70-105 MG/DL Home Medications Scheduled Amlodipine Besylate (Amlodipine Besylate) 10 Mg Tablet, 10 MG PO DAILY, (Reported) Atorvastatin Calcium (Atorvastatin Calcium) 20 Mg Tablet, 60 MG PO DAILY Lisinopril (Lisinopril) 5 Mg Tablet, 5 MG PO DAILY, (Reported) Sertraline HCl (Sertraline HCl) 25 Mg Tablet, 25 MG PO DAILY Scheduled PRN Docusate Sodium (Colace) 100 Mg Capsule, 100 MG PO BID PRN for CONSTIPATION, (Reported) Magnesium Hydroxide (Milk of Magnesia) 400 Mg/5 Ml Oral.susp, 30 ML PO DAILYPRN PRN for CONSTIPATION Sennosides/Docusate Sodium (Senna Plus Tablet) 1 Each Tablet, 2 TAB PO QHSP PRN for CONSTIPATION Allergies Coded Allergies: No Known Drug Allergies (Verified Allergy, Unknown, 12/09/19) A-FIB/CHADSVASC A-FIB History Current/History of A-Fib/PAF?: No ANIYA GREWAL MD Dec 18, 2019 14:34
[2019-12-18 21:12] VITALS: BP 137/84
[2019-12-19 06:00] VITALS: BP 138/88
[2019-12-19] MEDS: HEPARIN SOD (PORCINE) 5000 UNITS/ML VIAL (J1644 PER 1000UNITS) SC SCH ×2 (08:15→20:50)
[2019-12-19] MEDS: HumaLOG INSULIN (NovoLOG) PER UNIT SC SCH ×4 (08:15→20:58)
[2019-12-19] MEDS: SERTRALINE HCL 25 MG TABLET PO SCH (08:16)
[2019-12-19] MEDS: PANTOPRAZOLE 40MG TAB (PROTONIX) PO SCH (08:16)
[2019-12-19] MEDS: SENOKOT S TAB PO SCH ×2 (08:16→20:51)
[2019-12-19] MEDS: amLODIPine 10 MG TAB PO SCH (08:16)
[2019-12-19] MEDS: ATORVASTATIN 20 MG TAB PO SCH (08:16)
[2019-12-19] MEDS: lisinopriL 5 MG TAB PO SCH (08:16)
[2019-12-19] MEDS: REMEDY PHYTOPLEX Z-GUARD PASTE 113GM TUBE (FROM STOREROOM PRODUCT) TOP SCH ×3 (08:17→20:52)
[2019-12-19 14:00] VITALS: BP 143/70
--- NOTE | 2019-12-19 18:21 | IPNPDOC ---
PM&R Progress Note DATE OF SERVICE: Dec 19, 2019 Peace Officer Progress Note Subjective: Patient seen in his room with brother bedside stating he had a good day in therapy, does not think he is getting return yet in his right arm, but states the E-stim seemed to help. REVIEW OF SYSTEMS: The following is a completed review of systems and has been reviewed. Review of systems otherwise unremarkable. PAIN: Patient self reports no pain EYES: No recent vision changes EARS, NOSE, & THROAT: No throat pain, or dysphagia, or rhinorrhea CARDIOVASCULAR: Denies chest pain or palpitations PULMONARY: Denies shortness of breath GASTROINTESTINAL:+ fecal incontinence GENITOURINARY: +urinary incontinence MUSCULOSKELETAL: right sided paresis NEUROLOGICAL:right sided paresis HEMATOLOGICAL: denies easy bruising SKIN: denies rash PSYCHIATRIC: Unremarkable All other review of systems found to be negative. PHYSICAL EXAMINATION: VITAL SIGNS: Please see below. GENERAL: Pleasant and cooperative. No acute distress. HEENT: PERRL. Extraocular movements intact. Clear conjunctiva, +right sided facial droop CARDIOVASCULAR: Regular rate and rhythm. No murmurs, rubs, or gallops LUNGS: Clear to auscultation bilaterally. No wheezes. No rhonchi ABDOMEN: Soft, nontender, nondistended. Positive bowel sounds. Normal active bowel sounds NEUROLOGICAL: Alert and oriented times three. Cranial nerves II through XII grossly intact. Sensation grossly intact EXTREMITIES: 5\5 strength left upper extremities. Flaccid RUE, 0\5 strength right lower extremity except for trace hip abduction. 5/5 strength in left lower extremity. SKIN: blanchable sacral erythema ASSESSMENT:54-year-old M with past medical history of HTN who presents status post left basal ganglia ICH PLAN: 1. 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 Neuro: s/p left basal ganglia ICH- off antiplatelet therapy -c/u BP management and statin for secondary stroke prevention 3. Cardiac: HTN-monitor BPs and adjust prn, c/u Amlodipine and lisinopril- medicine consulted to assist in management 4. Resp: encourage incentive spirometry, monitor for infection 5. Endo: pre-diabetic, c/u ISS-well controlled 6. GI ppx: protonix 7. DVT ppx: heparin and TEds 8. Skin: barrier cream at least TID, orders in place for frequent skin checks in setting of urinary and fecal incontinence 9. Psych: c/u ZOloft for depression and will help with motor recovery in stroke 10. Dispo TBD Allergies Coded Allergies: No Known Drug Allergies (Verified Allergy, Unknown, 12/09/19) Vital Signs Vital Signs Date Time Temp Pulse Resp B/P (MAP) Pulse Ox O2 Delivery O2 Flow Rate FiO2 12/19/19 14:00 98.2 89 18 143/70 (94) 96 Room Air Current Medications Current Medications Current Medications Medications (Trade) Dose Ordered Sig/Shayy Route PRN Reason Start Time Stop Time Status Last Admin Dose Admin Acetaminophen (Tylenol Tab) 650 mg Q4HP PRN PO fever/MILD PAIN (PS 1-4) 12/17/19 17:15 Amlodipine Besylate (Norvasc) 10 mg DAILY PO 12/18/19 09:00 12/19/19 08:16 Atorvastatin Calcium (Lipitor) 60 mg DAILY PO 12/18/19 09:00 12/19/19 08:16 Dextrose (Dextrose 50%) 25 ml ASDIRECTED PRN IV SEE LABEL COMMENTS 12/17/19 17:15 Glucagon (Glucagon) 1 mg ASDIRECTED PRN SC SEE LABEL COMMENTS 12/17/19 17:15 Glucose (Glucose) 16 GM ASDIRECTED PRN PO SEE LABEL COMMENTS 12/17/19 17:15 Heparin Sodium (Porcine) (Heparin) 5,000 units Q12H SC 12/17/19 21:00 12/19/19 08:15 Insulin Human Lispro (HumaLOG INSULIN) SEE PROTOCOL TABLE AC SC 12/17/19 17:30 12/19/19 11:37 Insulin Human Lispro (HumaLOG INSULIN) SEE PROTOCOL TABLE QHS SC 12/17/19 21:00 Lisinopril (Prinivil) 5 mg DAILY PO 12/18/19 09:00 12/19/19 08:16 Magnesium Hydroxide (Milk Of Magnesia) 30 ml DAILYPRN PRN PO CONSTIPATION 12/17/19 17:15 Pantoprazole Sodium (Protonix) 40 mg DAILY PO 12/17/19 09:00 12/19/19 08:16 Senna/Docusate Sodium (Senokot S) 1 tab BID PO 12/17/19 21:00 12/19/19 08:16 Sertraline HCl (Zoloft) 25 mg DAILY PO 12/18/19 09:00 12/19/19 08:16 ANIYA GREWAL MD Dec 19, 2019 18:21
[2019-12-19] MEDS ORDERED: FLEET ENEMA PR ONE (18:30)
[2019-12-19 23:40] VITALS: BP 131/66
[2019-12-20 05:55] VITALS: BP 142/72
[2019-12-20] MEDS: HumaLOG INSULIN (NovoLOG) PER UNIT SC SCH ×4 (06:53→20:45)
[2019-12-20 08:04] LABS: BASO % 0.4 % (0.0-1.0); EOS # 0.1 10^3/uL (0.0-0.5); EOS % 1.4 % (0.0-3.0); HEMATOCRIT 43.3 % (42.0-52.0); HEMOGLOBIN 14.2 g/dl (13.5-17.5); LYMPH # 2.3 10^3/uL (1.5-5.0); LYMPH % 23.3 % (24.0-44.0); MEAN CORPUSCULAR HGB CONC 32.8 g/dl (32.0-36.5); MEAN CORPUSCULAR VOLUME 91.4 fl (80.0-96.0); MONO % 9.8 % (0.0-5.0); NEUTROPHILS # 6.3 10^3/uL (1.5-8.5); NEUTROPHILS % 64.7 % (36.0-66.0); PLATELET COUNT, AUTOMATED 163 10^3/uL (150-450); RED BLOOD COUNT 4.74 10^6/uL (4.30-6.10); WHITE BLOOD COUNT 9.7 10^3/uL (4.0-10.0)
[2019-12-20 08:18] LABS: BLOOD UREA NITROGEN 27 MG/DL (7-18); CALCIUM LEVEL 8.8 MG/DL (8.5-10.1); CARBON DIOXIDE LEVEL 28 MEQ/L (21-32); CHLORIDE LEVEL 105 MEQ/L (98-107); CREATININE FOR GFR 0.78 MG/DL (0.70-1.30); GLOMERULAR FILTRATION RATE > 60.0 (>56); GLUCOSE, FASTING 127 MG/DL (70-100); POTASSIUM SERUM 3.6 MEQ/L (3.5-5.1); SODIUM LEVEL 139 MEQ/L (136-145)
[2019-12-20] MEDS: ATORVASTATIN 20 MG TAB PO SCH (10:11)
[2019-12-20] MEDS: SENOKOT S TAB PO SCH ×2 (10:11→20:49)
[2019-12-20] MEDS: HEPARIN SOD (PORCINE) 5000 UNITS/ML VIAL (J1644 PER 1000UNITS) SC SCH ×2 (10:12→20:49)
[2019-12-20] MEDS: SERTRALINE HCL 25 MG TABLET PO SCH (10:12)
[2019-12-20] MEDS: amLODIPine 10 MG TAB PO SCH (10:12)
[2019-12-20] MEDS: lisinopriL 5 MG TAB PO SCH (10:12)
[2019-12-20] MEDS: PANTOPRAZOLE 40MG TAB (PROTONIX) PO SCH (10:12)
[2019-12-20] MEDS: REMEDY PHYTOPLEX Z-GUARD PASTE 113GM TUBE (FROM STOREROOM PRODUCT) TOP SCH ×3 (10:12→20:45)
[2019-12-20 14:00] VITALS: BP 130/79
[2019-12-20 20:00] VITALS: BP 126/66
[2019-12-21 06:00] VITALS: BP 121/74
[2019-12-21] MEDS: PANTOPRAZOLE 40MG TAB (PROTONIX) PO SCH (08:18)
[2019-12-21] MEDS: ATORVASTATIN 20 MG TAB PO SCH (08:18)
[2019-12-21] MEDS: HEPARIN SOD (PORCINE) 5000 UNITS/ML VIAL (J1644 PER 1000UNITS) SC SCH ×2 (08:18→20:36)
[2019-12-21] MEDS: HumaLOG INSULIN (NovoLOG) PER UNIT SC SCH ×4 (08:18→20:23)
[2019-12-21] MEDS: SERTRALINE HCL 25 MG TABLET PO SCH (08:18)
[2019-12-21] MEDS: lisinopriL 5 MG TAB PO SCH (08:18)
[2019-12-21] MEDS: amLODIPine 10 MG TAB PO SCH (08:18)
[2019-12-21] MEDS: REMEDY PHYTOPLEX Z-GUARD PASTE 113GM TUBE (FROM STOREROOM PRODUCT) TOP SCH ×3 (08:19→20:23)
[2019-12-21] MEDS: SENOKOT S TAB PO SCH ×2 (08:19→20:36)
[2019-12-21 14:00] VITALS: BP 124/69
[2019-12-21 20:23] VITALS: BP 139/77
[2019-12-22 06:00] VITALS: BP 119/69
[2019-12-22] MEDS: HumaLOG INSULIN (NovoLOG) PER UNIT SC SCH ×4 (08:27→20:27)
[2019-12-22] MEDS: SENOKOT S TAB PO SCH ×2 (08:28→20:26)
[2019-12-22] MEDS: lisinopriL 5 MG TAB PO SCH (08:28)
[2019-12-22] MEDS: HEPARIN SOD (PORCINE) 5000 UNITS/ML VIAL (J1644 PER 1000UNITS) SC SCH ×2 (08:28→20:26)
[2019-12-22] MEDS: amLODIPine 10 MG TAB PO SCH (08:28)
[2019-12-22] MEDS: SERTRALINE HCL 25 MG TABLET PO SCH (08:28)
[2019-12-22] MEDS: ATORVASTATIN 20 MG TAB PO SCH (08:28)
[2019-12-22] MEDS: PANTOPRAZOLE 40MG TAB (PROTONIX) PO SCH (08:28)
[2019-12-22] MEDS: REMEDY PHYTOPLEX Z-GUARD PASTE 113GM TUBE (FROM STOREROOM PRODUCT) TOP SCH ×3 (08:29→20:27)
[2019-12-22 14:00] VITALS: BP 140/75
[2019-12-22 20:00] VITALS: BP 118/66
[2019-12-23 06:00] VITALS: BP 121/64
[2019-12-23] MEDS: HumaLOG INSULIN (NovoLOG) PER UNIT SC SCH ×4 (06:53→22:52)
[2019-12-23 07:37] LABS: BASO # 0.1 10^3/uL (0.0-0.2); BASO % 0.5 % (0.0-1.0); EOS # 0.2 10^3/uL (0.0-0.5); HEMATOCRIT 42.9 % (42.0-52.0); HEMOGLOBIN 14.3 g/dl (13.5-17.5); LYMPH % 20.8 % (24.0-44.0); MEAN CORPUSCULAR HEMOGLOBIN 30.6 pg (27.0-33.0); MEAN CORPUSCULAR HGB CONC 33.3 g/dl (32.0-36.5); MEAN CORPUSCULAR VOLUME 91.9 fl (80.0-96.0); MONO # 0.9 10^3/uL (0.0-0.8); MONO % 9.5 % (0.0-5.0); NEUTROPHILS # 6.4 10^3/uL (1.5-8.5); NEUTROPHILS % 66.8 % (36.0-66.0); PLATELET COUNT, AUTOMATED 177 10^3/uL (150-450); RED BLOOD COUNT 4.67 10^6/uL (4.30-6.10); WHITE BLOOD COUNT 9.7 10^3/uL (4.0-10.0)
[2019-12-23 07:51] LABS: BLOOD UREA NITROGEN 26 MG/DL (7-18); CARBON DIOXIDE LEVEL 30 MEQ/L (21-32); CHLORIDE LEVEL 103 MEQ/L (98-107); CREATININE FOR GFR 0.81 MG/DL (0.70-1.30); GLOMERULAR FILTRATION RATE > 60.0 (>56); GLUCOSE, FASTING 123 MG/DL (70-100); SODIUM LEVEL 137 MEQ/L (136-145)
[2019-12-23] MEDS: PANTOPRAZOLE 40MG TAB (PROTONIX) PO SCH (08:44)
[2019-12-23] MEDS: HEPARIN SOD (PORCINE) 5000 UNITS/ML VIAL (J1644 PER 1000UNITS) SC SCH ×2 (08:44→22:51)
[2019-12-23] MEDS: amLODIPine 10 MG TAB PO SCH (08:45)
[2019-12-23] MEDS: lisinopriL 5 MG TAB PO SCH (08:45)
[2019-12-23] MEDS: ATORVASTATIN 20 MG TAB PO SCH (08:45)
[2019-12-23] MEDS: SERTRALINE HCL 25 MG TABLET PO SCH (08:45)
[2019-12-23] MEDS: SENOKOT S TAB PO SCH ×2 (08:46→22:51)
[2019-12-23] MEDS: REMEDY PHYTOPLEX Z-GUARD PASTE 113GM TUBE (FROM STOREROOM PRODUCT) TOP SCH ×3 (08:46→22:53)
[2019-12-23] MEDS ORDERED: ONDANSETRON 4 MG TAB (S0181) As Ordered ONE (09:20)
[2019-12-23] MEDS: ONDANSETRON 4 MG TAB (S0181) PO SCH ×3 (09:21→22:52)
[2019-12-23] MEDS ORDERED: MECLIZINE 25 MG TABLET PO ONE (12:00)
--- NOTE | 2019-12-23 12:27 | IPNPDOC ---
PM&R Progress Note DATE OF SERVICE: Dec 20, 2019 Assortment Planner Progress Note Subjective: Patient seen in his room stating he feels well and has not complaints, except his arm and leg are not getting stronger. REVIEW OF SYSTEMS: The following is a completed review of systems and has been reviewed. Review of systems otherwise unremarkable. PAIN: Patient self reports no pain EYES: No recent vision changes EARS, NOSE, & THROAT: No throat pain, or dysphagia, or rhinorrhea CARDIOVASCULAR: Denies chest pain or palpitations PULMONARY: Denies shortness of breath GASTROINTESTINAL:+ fecal incontinence GENITOURINARY: +urinary incontinence MUSCULOSKELETAL: right sided paresis NEUROLOGICAL:right sided paresis HEMATOLOGICAL: denies easy bruising SKIN: denies rash PSYCHIATRIC: Unremarkable All other review of systems found to be negative. PHYSICAL EXAMINATION: VITAL SIGNS: Please see below. GENERAL: Pleasant and cooperative. No acute distress. HEENT: PERRL. Extraocular movements intact. Clear conjunctiva, +right sided facial droop CARDIOVASCULAR: Regular rate and rhythm. No murmurs, rubs, or gallops LUNGS: Clear to auscultation bilaterally. No wheezes. No rhonchi ABDOMEN: Soft, nontender, nondistended. Positive bowel sounds. Normal active bowel sounds NEUROLOGICAL: Alert and oriented times three. Cranial nerves II through XII grossly intact. Sensation grossly intact EXTREMITIES: 5\5 strength left upper extremities. Flaccid RUE, 0\5 strength right lower extremity except for trace hip abduction. 5/5 strength in left lower extremity. SKIN: blanchable sacral erythema ASSESSMENT:54-year-old M with past medical history of HTN who presents status post left basal ganglia ICH PLAN: 1. 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 Neuro: s/p left basal ganglia ICH- off antiplatelet therapy -c/u BP management and statin for secondary stroke prevention 3. Cardiac: HTN-monitor BPs and adjust prn, c/u Amlodipine and lisinopril- medicine consulted to assist in management 4. Resp: encourage incentive spirometry, monitor for infection 5. Endo: pre-diabetic, c/u ISS-well controlled 6. GI ppx: protonix 7. DVT ppx: heparin and TEds 8. Skin: barrier cream at least TID, orders in place for frequent skin checks in setting of urinary and fecal incontinence 9. Psych: c/u ZOloft for depression and will help with motor recovery in stroke 10. Dispo TBD Allergies Coded Allergies: No Known Drug Allergies (Verified Allergy, Unknown, 12/09/19) Vital Signs Vital Signs Date Time Temp Pulse Resp B/P (MAP) Pulse Ox O2 Delivery O2 Flow Rate FiO2 12/23/19 08:45 136/75 12/23/19 08:45 76 12/23/19 06:00 97.2 18 97 Room Air Laboratory Data CBC/BMP Laboratory Tests 12/23/19 06:49 Labs 24H Laboratory Tests 2 12/23/19 06:49: Immature Granulocyte % (Auto) 0.4, Neutrophils (%) (Auto) 66.8H, Lymphocytes (%) (Auto) 20.8L, Monocytes (%) (Auto) 9.5H, Eosinophils (%) (Auto) 2.0, Basophils (%) (Auto) 0.5, Neutrophils # (Auto) 6.4, Lymphocytes # (Auto) 2.0, Monocytes # (Auto) 0.9H, Eosinophils # (Auto) 0.2, Basophils # (Auto) 0.1, Nucleated Red Blood Cells % (auto) 0.0, Anion Gap 4L, Glomerular Filtration Rate > 60.0, Calcium Level 9.0 Current Medications Current Medications Current Medications Medications (Trade) Dose Ordered Sig/Shayy Route PRN Reason Start Time Stop Time Status Last Admin Dose Admin Acetaminophen (Tylenol Tab) 650 mg Q4HP PRN PO fever/MILD PAIN (PS 1-4) 12/17/19 17:15 Amlodipine Besylate (Norvasc) 10 mg DAILY PO 12/18/19 09:00 12/23/19 08:45 Atorvastatin Calcium (Lipitor) 60 mg DAILY PO 12/18/19 09:00 12/23/19 08:45 Dextrose (Dextrose 50%) 25 ml ASDIRECTED PRN IV SEE LABEL COMMENTS 12/17/19 17:15 Glucagon (Glucagon) 1 mg ASDIRECTED PRN SC SEE LABEL COMMENTS 12/17/19 17:15 Glucose (Glucose) 16 GM ASDIRECTED PRN PO SEE LABEL COMMENTS 12/17/19 17:15 Heparin Sodium (Porcine) (Heparin) 5,000 units Q12H SC 12/17/19 21:00 12/23/19 08:44 Insulin Human Lispro (HumaLOG INSULIN) SEE PROTOCOL TABLE AC SC 12/17/19 17:30 12/23/19 12:06 Insulin Human Lispro (HumaLOG INSULIN) SEE PROTOCOL TABLE QHS SC 12/17/19 21:00 Lisinopril (Prinivil) 5 mg DAILY PO 12/18/19 09:00 12/23/19 08:45 Magnesium Hydroxide (Milk Of Magnesia) 30 ml DAILYPRN PRN PO CONSTIPATION 12/17/19 17:15 Ondansetron HCl (Zofran) 4 mg Q6H PO 12/23/19 12:00 12/23/19 09:21 Pantoprazole Sodium (Protonix) 40 mg DAILY PO 12/17/19 09:00 12/23/19 08:44 Senna/Docusate Sodium (Senokot S) 1 tab BID PO 12/17/19 21:00 12/23/19 08:46 Sertraline HCl (Zoloft) 25 mg DAILY PO 12/18/19 09:00 12/23/19 08:45 ANIYA GREWAL MD Dec 23, 2019 12:27
--- NOTE | 2019-12-23 12:28 | IPNPDOC ---
PM&R Progress Note DATE OF SERVICE: Dec 23, 2019 Budget Analyst Progress Note Subjective: Patient seen this morning stating he feels dizzy like the room is spinning. He denies headache, chest pain, or new weakness. Vitals within normal limits, emerald sanders received Zofram, Meclizine ordered as well and therapy to provide vestibular therapy. REVIEW OF SYSTEMS: The following is a completed review of systems and has been reviewed. Review of systems otherwise unremarkable. PAIN: Patient self reports no pain EYES: No recent vision changes EARS, NOSE, & THROAT: No throat pain, or dysphagia, or rhinorrhea CARDIOVASCULAR: Denies chest pain or palpitations PULMONARY: Denies shortness of breath GASTROINTESTINAL:+ fecal incontinence GENITOURINARY: +urinary incontinence MUSCULOSKELETAL: right sided paresis NEUROLOGICAL:right sided paresis HEMATOLOGICAL: denies easy bruising SKIN: denies rash PSYCHIATRIC: Unremarkable All other review of systems found to be negative. PHYSICAL EXAMINATION: VITAL SIGNS: Please see below. GENERAL: Pleasant and cooperative. No acute distress. HEENT: PERRL. Extraocular movements intact. Clear conjunctiva, +right sided facial droop CARDIOVASCULAR: Regular rate and rhythm. No murmurs, rubs, or gallops LUNGS: Clear to auscultation bilaterally. No wheezes. No rhonchi ABDOMEN: Soft, nontender, nondistended. Positive bowel sounds. Normal active bowel sounds NEUROLOGICAL: Alert and oriented times three. Cranial nerves II through XII grossly intact. Sensation grossly intact EXTREMITIES: 5\5 strength left upper extremities. Flaccid RUE, 0\5 strength right lower extremity except for trace hip abduction. 5/5 strength in left lower extremity. SKIN: blanchable sacral erythema ASSESSMENT:54-year-old M with past medical history of HTN who presents status post left basal ganglia ICH PLAN: 1. 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 Neuro: s/p left basal ganglia ICH- off antiplatelet therapy -c/u BP management and statin for secondary stroke prevention -meclizine prn for dizziness -patient's dizziness resolved, will get repeat MRI to monitor progression of infarct and r/o new bleed 3. Cardiac: HTN-monitor BPs and adjust prn, c/u Amlodipine and lisinopril- medicine consulted to assist in management 4. Resp: encourage incentive spirometry, monitor for infection 5. Endo: pre-diabetic, c/u ISS-well controlled 6. GI ppx: protonix 7. DVT ppx: heparin and TEds 8. Skin: barrier cream at least TID, orders in place for frequent skin checks in setting of urinary and fecal incontinence 9. Psych: c/u ZOloft for depression and will help with motor recovery in stroke 10. Dispo TBD Allergies Coded Allergies: No Known Drug Allergies (Verified Allergy, Unknown, 12/09/19) Vital Signs Vital Signs Date Time Temp Pulse Resp B/P (MAP) Pulse Ox O2 Delivery O2 Flow Rate FiO2 12/23/19 08:45 136/75 12/23/19 08:45 76 12/23/19 06:00 97.2 18 97 Room Air Laboratory Data CBC/BMP Laboratory Tests 12/23/19 06:49 Labs 24H Laboratory Tests 2 12/23/19 06:49: Immature Granulocyte % (Auto) 0.4, Neutrophils (%) (Auto) 66.8H, Lymphocytes (%) (Auto) 20.8L, Monocytes (%) (Auto) 9.5H, Eosinophils (%) (Auto) 2.0, Basophils (%) (Auto) 0.5, Neutrophils # (Auto) 6.4, Lymphocytes # (Auto) 2.0, Monocytes # (Auto) 0.9H, Eosinophils # (Auto) 0.2, Basophils # (Auto) 0.1, Nucleated Red Blood Cells % (auto) 0.0, Anion Gap 4L, Glomerular Filtration Rate > 60.0, Calcium Level 9.0 Current Medications Current Medications Current Medications Medications (Trade) Dose Ordered Sig/Shayy Route PRN Reason Start Time Stop Time Status Last Admin Dose Admin Acetaminophen (Tylenol Tab) 650 mg Q4HP PRN PO fever/MILD PAIN (PS 1-4) 12/17/19 17:15 Amlodipine Besylate (Norvasc) 10 mg DAILY PO 12/18/19 09:00 12/23/19 08:45 Atorvastatin Calcium (Lipitor) 60 mg DAILY PO 12/18/19 09:00 12/23/19 08:45 Dextrose (Dextrose 50%) 25 ml ASDIRECTED PRN IV SEE LABEL COMMENTS 12/17/19 17:15 Glucagon (Glucagon) 1 mg ASDIRECTED PRN SC SEE LABEL COMMENTS 12/17/19 17:15 Glucose (Glucose) 16 GM ASDIRECTED PRN PO SEE LABEL COMMENTS 12/17/19 17:15 Heparin Sodium (Porcine) (Heparin) 5,000 units Q12H SC 12/17/19 21:00 12/23/19 08:44 Insulin Human Lispro (HumaLOG INSULIN) SEE PROTOCOL TABLE AC SC 12/17/19 17:30 12/23/19 12:06 Insulin Human Lispro (HumaLOG INSULIN) SEE PROTOCOL TABLE QHS SC 12/17/19 21:00 Lisinopril (Prinivil) 5 mg DAILY PO 12/18/19 09:00 12/23/19 08:45 Magnesium Hydroxide (Milk Of Magnesia) 30 ml DAILYPRN PRN PO CONSTIPATION 12/17/19 17:15 Ondansetron HCl (Zofran) 4 mg Q6H PO 12/23/19 12:00 12/23/19 09:21 Pantoprazole Sodium (Protonix) 40 mg DAILY PO 12/17/19 09:00 12/23/19 08:44 Senna/Docusate Sodium (Senokot S) 1 tab BID PO 12/17/19 21:00 12/23/19 08:46 Sertraline HCl (Zoloft) 25 mg DAILY PO 12/18/19 09:00 12/23/19 08:45 ANIYA GREWAL MD Dec 23, 2019 12:28
[2019-12-23 14:45] VITALS: BP 123/74
--- NOTE | 2019-12-23 15:22 | IPNPDOC ---
Text Note Date of Service The patient was seen on 12/23/19. NOTE NOTE Subjective Chief Complaint/HPI Mr Cho is a 54 year old male who was transferred to [facility] from [facility] for acute rehab secondary to a L-sided Hemorrhagic CVA on Monday. Pt stated he was at home when he noticed that his right side was numb and had become paralyzed. Pt stated he has seen no improvement in his right sided paralysis since Monday. He reported he was transported to the ED at [facility] within 20 minutes of Sx onset. Per nursing, pt reported dizziness and nausea this morning. No vomiting. Pt reported that opening his eyes caused dizziness. He feels as if the room is spinning and not himself; onset was this morning. He has never had this Sx before. Turning his head to the right worsens the dizziness. Objective Physical Examination General Exam: Positive: Alert, Cooperative, No Acute Distress Eye Exam: Positive: Conjunctiva & lids normal; Negative: Sclera icteric ENT Exam: Positive: Atraumatic, Mucous membr. moist/pink, Pharynx Normal, Tong ue Midline Neck Exam: Positive: Supple; Negative: JVD, thyromegaly Chest Exam: Positive: Clear to auscultation, Normal air movement Heart Exam: Positive: Rate Normal, Regular Rhythm, Normal S1, Normal S2 Telemetry: Positive: No significant arrhythmia Abdomen Exam: Positive: Normal bowel sounds, Soft; Negative: Tenderness Extremity Exam: Positive: Edema (b/l LEs); Negative: Clubbing, Cyanosis Skin Exam: Positive: Nl turgor and temperature Neuro Exam: Positive: Other (right-sided hemiparesis, right sided mouth droop, sensation intact, dysarthria); dizziness with head to the right Negative: Normal Gait, Normal Speech, Strength at 5/5 X4 ext (right sided hemiparesis ) Psych Exam: Positive: Mood NL Assessment /Plan Assessment Mr Cho is a 54 year old male who was transferred to [facility] from [facility] for acute rehab secondary to a Hemorrhagic CVA on Monday. Pt stated he was at home when he noticed that his right side was numb and had become paralyzed. Pt stated he has no improvement in his right sided paralysis since Monday. He reported he was transported to the ED at [facility] within 20 minutes of Sx onset. Pt has a PMHx which includes: DM, HTN, Morbid obesity with gastric bypass 2011, Hemorrhagic stroke. CT Head w/out contrast IMPRESSION: "1. Left acute basal ganglia intracranial hemorrhage. 2. Mild hemispheric volume loss. 3. Intracranial vascular calcification." BPPV - PT to perform Bucky maneuver - pt reported his Sx resolved with treatment; sitting up in the recliner afterwards per nursing Left CVA, with right sided hemiparesis - likely 2/2 uncontrolled HTN - continue to maintain good BP control - transferred to ARU; continued management per Dr. Lira HTN - currently well-controlled - continue Amlodipine, Lisinopril HLD - LDL 93; goal <70 with recent CVA and DM - Recommend, increasing dietary fiber; close f/u with PCP DMII - continue ISS with achs - continue diabetic diet Depression - currently on Sertraline 25mg. Will need outpt f/u within 6 weeks. VS,Fishbone, I+O VS, Fishbone, I+O Laboratory Tests 12/23/19 06:49 Vital Signs Date Time Temp Pulse Resp B/P (MAP) Pulse Ox O2 Delivery O2 Flow Rate FiO2 12/23/19 08:45 136/75 12/23/19 08:45 76 12/23/19 06:00 97.2 18 97 Room Air I&O- Last 24 Hours up to 6 AM 12/23/19 06:00 Intake Total 1080 ml Output Total 1875 ml Balance -795 ml BERTRAM VARGAS PA-C Dec 23, 2019 15:22
[2019-12-23 20:00] VITALS: BP 120/65
--- NOTE | 2019-12-23 22:25 | REPVR ---
PROCEDURE INFORMATION: Exam: MR Head Without Contrast Exam date and time: 12/23/2019 9:57 PM Age: 54 years old Clinical indication: Condition or disease; Other: Left acute basal ganglia; Additional info: New onset dizziness TECHNIQUE: Imaging protocol: MR of the head without contrast. COMPARISON: CT Head without contrast 12/09/2019 5:39 AM FINDINGS: Brain: Redemonstration of a lobular marginated intracranial hemorrhage in the left basal ganglia extending to the subinsular region measuring 2.5 x 2.4 x 2.9 cm. Hematoma surrounded by edema and marginated by hemosiderin. Confluent foci T2 lengthening in the periventricular regions bilaterally. Midline shift: No midline shift. Ventricles: Mild mass effect on the left lateral ventricle. Bones/joints: Unremarkable. Soft tissues: Unremarkable. Sinuses: Normal as visualized. No acute sinusitis. Mastoid air cells: Normal as visualized. No mastoid effusion. Orbits: Unremarkable. IMPRESSION: Redemonstration of a lobular marginated intracranial hemorrhage in the left basal ganglia extending to the subinsular region. There is mild mass effect on the lateral ventricle on the left. Electronically signed by: Tab Berger On 12/23/2019 22:25:34 PM
[2019-12-23] MEDS: MOM 30ML SUSPENSION UDC PO PRN (22:51)
[2019-12-24] MEDS: ONDANSETRON 4 MG TAB (S0181) PO SCH ×3 (05:45→19:41)
[2019-12-24 06:00] VITALS: BP 122/64
[2019-12-24] MEDS: HEPARIN SOD (PORCINE) 5000 UNITS/ML VIAL (J1644 PER 1000UNITS) SC SCH ×2 (09:02→21:50)
[2019-12-24] MEDS: HumaLOG INSULIN (NovoLOG) PER UNIT SC SCH ×4 (09:02→21:00)
[2019-12-24] MEDS: SENOKOT S TAB PO SCH ×2 (09:02→21:50)
[2019-12-24] MEDS: PANTOPRAZOLE 40MG TAB (PROTONIX) PO SCH (09:02)
[2019-12-24] MEDS: ATORVASTATIN 20 MG TAB PO SCH (09:02)
[2019-12-24] MEDS: SERTRALINE HCL 25 MG TABLET PO SCH (09:02)
[2019-12-24] MEDS: lisinopriL 5 MG TAB PO SCH (09:03)
[2019-12-24] MEDS: amLODIPine 10 MG TAB PO SCH (09:03)
[2019-12-24] MEDS: REMEDY PHYTOPLEX Z-GUARD PASTE 113GM TUBE (FROM STOREROOM PRODUCT) TOP SCH ×3 (12:52→21:51)
[2019-12-24 14:00] VITALS: BP 127/75
--- NOTE | 2019-12-24 14:15 | REP ---
Clinical: Immobility . Technique: Grubbs scale and color Doppler evaluation of the right and left lower extremities using linear high frequency transducer. Findings: Right lower extremity demonstrates essentially occlusive thrombus through the superficial femoral vein, popliteal vein, and tibioperoneal trunk as well as within a duplicated mid to distal femoral vein. Left lower extremity appears normal and without thrombus. Impression: Significant right lower extremity deep venous thrombosis. Electronically Signed by Denis Wolf MD 12/24/2019 02:06 P
[2019-12-24] MEDS ORDERED: ISOVUE-370 76% 100ML VIAL (Q9967) As Ordered ONE (15:22)
--- NOTE | 2019-12-24 16:31 | REP ---
Clinical: Chest pain and desaturation. Technique: Axial contrast enhanced images from the thoracic inlet to the upper abdomen using 100 ml Isovue 370 intravenous contrast material with multiplanar re-formations. Findings: Satisfactory enhancement of the pulmonary vasculature is achieved and significant filling defects are identified involving the distal aspect of the right main pulmonary artery with extension into the right lower lobe pulmonary arteries and basilar right upper lobe pulmonary artery as well as significant filling defects in the first order left lower lobe pulmonary artery with extension into multiple branch vessels as well as small emboli to the left upper lobe. The bilateral lung sharif are well-aerated and without associated areas of consolidation or atelectasis. No effusion. No pneumothorax. Tracheobronchial tree is patent. No significant adenopathy. Thoracic aorta is normal. Heart and pericardium are grossly normal. No pericardial effusion. Surrounding musculoskeletal structures without focal abnormality. Impression: Significant bilateral pulmonary emboli. Electronically Signed by Denis Wolf MD 12/24/2019 04:22 P
--- NOTE | 2019-12-24 17:05 | IPNPDOC ---
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 He denies headache, chest pain, or new weakness. Vitals within normal limits, patient received Zofram, Meclizine ordered as well and therapy to provide vestibular therapy. REVIEW OF SYSTEMS: The following is a completed review of systems and has been reviewed. Review of systems otherwise unremarkable. PAIN: Patient self reports no pain EYES: No recent vision changes EARS, NOSE, & THROAT: No throat pain, or dysphagia, or rhinorrhea CARDIOVASCULAR: Denies chest pain or palpitations PULMONARY: Denies shortness of breath GASTROINTESTINAL:+ fecal incontinence GENITOURINARY: +urinary incontinence MUSCULOSKELETAL: right sided paresis NEUROLOGICAL:right sided paresis HEMATOLOGICAL: denies easy bruising SKIN: denies rash PSYCHIATRIC: Unremarkable All other review of systems found to be negative. PHYSICAL EXAMINATION: VITAL SIGNS: Please see below. GENERAL: Pleasant and cooperative. No acute distress. HEENT: PERRL. Extraocular movements intact. Clear conjunctiva, +right sided facial droop CARDIOVASCULAR: Regular rate and rhythm. No murmurs, rubs, or gallops LUNGS: Clear to auscultation bilaterally. No wheezes. No rhonchi ABDOMEN: Soft, nontender, nondistended. Positive bowel sounds. Normal active bowel sounds NEUROLOGICAL: Alert and oriented times three. Cranial nerves II through XII grossly intact. Sensation grossly intact EXTREMITIES: 5\5 strength left upper extremities. Flaccid RUE, 0\5 strength right lower extremity except for trace hip abduction. 5/5 strength in left lower extremity. SKIN: blanchable sacral erythema ASSESSMENT:54-year-old M with past medical history of HTN who presents status post left basal ganglia ICH PLAN: 1. 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 Neuro: s/p left basal ganglia ICH- off antiplatelet therapy -c/u BP management and statin for secondary stroke prevention -meclizine prn for dizziness -patient's dizziness resolved,repeat MRI negative for new infarct or bleed 3. Cardiac: HTN-monitor BPs and adjust prn, c/u Amlodipine and lisinopril- medicine consulted to assist in management 4. Resp: patient with mild desaturations on pulse-ox, will order Dopplers to r/o DVT -encourage incentive spirometry, monitor for infection 5. Endo: pre-diabetic, c/u ISS-well controlled 6. GI ppx: protonix 7. DVT ppx: heparin and TEds- dopplers ordered 8. Skin: barrier cream at least TID, orders in place for frequent skin checks in setting of urinary and fecal incontinence 9. Psych: c/u Zoloft for depression and will help with motor recovery in stroke 10. Dispo: 01-09-20 to home Allergies Coded Allergies: No Known Drug Allergies (Verified Allergy, Unknown, 12/09/19) Vital Signs Vital Signs Date Time Temp Pulse Resp B/P (MAP) Pulse Ox O2 Delivery O2 Flow Rate FiO2 12/24/19 14:00 97.6 90 18 127/75 (92) 90 Room Air Laboratory Data Labs 24H Laboratory Tests 2 12/23/19 19:41: Bedside Glucose (Misc Panel) 162H 12/24/19 11:48: Bedside Glucose (Misc Panel) 123H Current Medications Current Medications Current Medications Medications (Trade) Dose Ordered Sig/Shayy Route PRN Reason Start Time Stop Time Status Last Admin Dose Admin Acetaminophen (Tylenol Tab) 650 mg Q4HP PRN PO fever/MILD PAIN (PS 1-4) 12/17/19 17:15 Amlodipine Besylate (Norvasc) 10 mg DAILY PO 12/18/19 09:00 12/24/19 09:03 Atorvastatin Calcium (Lipitor) 60 mg DAILY PO 12/18/19 09:00 12/24/19 09:02 Dextrose (Dextrose 50%) 25 ml ASDIRECTED PRN IV SEE LABEL COMMENTS 12/17/19 17:15 Glucagon (Glucagon) 1 mg ASDIRECTED PRN SC SEE LABEL COMMENTS 12/17/19 17:15 Glucose (Glucose) 16 GM ASDIRECTED PRN PO SEE LABEL COMMENTS 12/17/19 17:15 Heparin Sodium (Porcine) (Heparin) 5,000 units Q12H SC 12/17/19 21:00 12/24/19 09:02 Insulin Human Lispro (HumaLOG INSULIN) SEE PROTOCOL TABLE AC SC 12/17/19 17:30 12/24/19 12:51 Insulin Human Lispro (HumaLOG INSULIN) SEE PROTOCOL TABLE QHS SC 12/17/19 21:00 Lisinopril (Prinivil) 5 mg DAILY PO 12/18/19 09:00 12/24/19 09:03 Magnesium Hydroxide (Milk Of Magnesia) 30 ml DAILYPRN PRN PO CONSTIPATION 12/17/19 17:15 12/23/19 22:51 Ondansetron HCl (Zofran) 4 mg Q6H PO 12/23/19 12:00 12/24/19 12:51 Pantoprazole Sodium (Protonix) 40 mg DAILY PO 12/17/19 09:00 12/24/19 09:02 Senna/Docusate Sodium (Senokot S) 1 tab BID PO 12/17/19 21:00 12/24/19 09:02 Sertraline HCl (Zoloft) 25 mg DAILY PO 12/18/19 09:00 12/24/19 09:02 ANIYA GREWAL MD Dec 24, 2019 17:05
[2019-12-24] MEDS ORDERED: LIDOCAINE 1% MDV 20ML VIAL As Ordered ONE (17:06)
--- NOTE | 2019-12-24 17:17 | CR.PDOC ---
General Date of Consultation: Dec 24, 2019 Consultation REASON FOR CONSULTATION/CHIEF COMPLAINT: IVC filter placement HISTORY OF PRESENT ILLNESS: Mr. Cho is a very pleasant 54-year-old gentleman w ith DVT and PE with contraindication to anticoagulation due to recent intracranial hemorrhage. We're consult to discuss IVC filter placement. Risks benefits and alternatives to IVC filter placement were explained and the patient is agreeable to proceed. Informed consent was obtained. ALLERGIES: Please see below. HOME MEDICATIONS: Please see below. PAST MEDICAL HISTORY: 1. Obesity 2. Type 2 diabetes 3. Hyperlipidemia 4. Left basal ganglia stroke with persistent right-sided weakness 5. Hypertension FAMILY HISTORY: Heart disease and diabetes SOCIAL HISTORY: Patient denies tobacco alcohol or illicit drug use REVIEW OF SYSTEMS: CONSTITUTIONAL: Denies fevers or chills HEENT: Denies vision changes CARDIOVASCULAR: Denies chest pain RESPIRATORY: Occasional shortness of breath with exertion GENITOURINARY: Denies dysuria MUSCULOSKELETAL: Positive right-sided weakness, denies claudication GASTROINTESTINAL: Denies nausea vomiting diarrhea, positive for constipation SKIN: Denies rashes NEUROLOGICAL: Positive recent left-sided stroke with residual right-sided weakness. PSYCHIATRIC: Positive for depression ENDOCRINE: Positive for diabetes HEMATOLOGIC/LYMPHATIC: Negative for known hypercoagulable state ALLERGIC/IMMUNOLOGIC: Negative PHYSICAL EXAMINATION: VITAL SIGNS: Please see below. GENERAL APPEARANCE: Medically stable HEENT: Normocephalic, vision grossly intact, TMI RESPIRATORY: Clear to auscultation but somewhat decreased bibasilar CARDIOVASCULAR: Rate and rhythm ABDOMEN: Soft obese nontender nondistended EXTREMITIES: Distal pulses intact NEUROLOGICAL: Focal deficit right side upper and lower extremity PSYCHIATRIC: Pleasant and cooperative LABORATORY DATA: Please see below. ASSESSMENT/PLAN: 54-year-old gentleman with newly diagnosed DVT and PE with contraindication to anticoagulation due to recent intracranial hemorrhage 1. Will proceed with IVC filter placement 2. Recommend to start full anticoagulation when safe from a neurologic standpoint We appreciate the opportunity to participate in the care of this patient. Vital Signs/I&O Vital Signs Date Time Temp Pulse Resp B/P (MAP) Pulse Ox O2 Delivery O2 Flow Rate FiO2 12/24/19 14:00 97.6 90 18 127/75 (92) 90 Room Air I&O- Last 24 Hours up to 6 AM 12/24/19 06:00 Intake Total 950 ml Output Total 1100 ml Balance -150 ml Laboratory Data Labs 24H Laboratory Tests 2 12/23/19 19:41: Bedside Glucose (Misc Panel) 162H 12/24/19 11:48: Bedside Glucose (Misc Panel) 123H Allergies Coded Allergies: No Known Drug Allergies (Verified Allergy, Unknown, 12/09/19) Home Medications Scheduled Amlodipine Besylate (Amlodipine Besylate) 10 Mg Tablet, 10 MG PO DAILY, (Reported) Atorvastatin Calcium (Atorvastatin Calcium) 20 Mg Tablet, 60 MG PO DAILY for 30 Days, #30 Lisinopril (Lisinopril) 5 Mg Tablet, 5 MG PO DAILY, (Reported) Sertraline HCl (Sertraline HCl) 25 Mg Tablet, 25 MG PO DAILY for 30 Days, #30 Scheduled PRN Docusate Sodium (Colace) 100 Mg Capsule, 100 MG PO BID PRN for CONSTIPATION, (Reported) Magnesium Hydroxide (Milk of Magnesia) 400 Mg/5 Ml Oral.susp, 30 ML PO DAILYPRN PRN for CONSTIPATION for 30 Days, #120 Sennosides/Docusate Sodium (Senna Plus Tablet) 1 Each Tablet, 2 TAB PO QHSP PRN for CONSTIPATION for 30 Days, #60 MIREYA HUITRON MD Dec 24, 2019 17:17
[2019-12-24] MEDS ORDERED: ISOVUE-300 61% 50ML VIAL (Q9967) As Ordered ONE (17:31)
[2019-12-24] MEDS ORDERED: MIDAZOLAM INJ 2 MG/2 ML VIAL (J2250) As Ordered ONE (17:39)
[2019-12-24] MEDS ORDERED: fentaNYL 100 MCG/2 ML INJECTION (J3010) As Ordered ONE (17:39)
--- NOTE | 2019-12-24 18:06 | ROOPDOC ---
[facility] Report Of Operation Report of Operation DATE OF PROCEDURE: 12/24/19 PREPROCEDURE DIAGNOSES: DVT and PE with contraindication to anticoagulation due to recent intracranial hemorrhage POSTPROCEDURE DIAGNOSES: Same PROCEDURE: 1. Ultrasound-guided access right basilic vein 2. Vena cava gram 3. Placement of infrarenal option IVC filter 4. Completion venogram SURGEON: Mireya Cedeno MD ANESTHESIA: Local anesthesia 2 mL lidocaine. No sedation was used for this procedure. INDICATION FOR PROCEDURE: Mr. Cho is a very pleasant 54-year-old gentleman with recent diagnosis of DVT and PE status post left basal ganglia intracranial hemorrhage with residual right-sided weakness. The patient therefore has a contraindication to anticoagulation and the risks benefits and alternatives to an IVC filter placement were explained to the patient and he was agreeable to proceed. Informed consent was obtained INTERPRETATION: The IVC is widely patent and the renal veins are widely patent and identified and marked for placement of the filter. No thrombus is noted in the IVC. After IVC filter placement, we note on completion venogram that the filter is in good position below the renal veins, there is no extravasation from the IVC, no thrombus is noted, and there is a scant amount of tilt to the filter that is not clinically significant. REPORT OF OPERATION: The patient was brought to the angiographic suite in stable condition and placed supine on the fluoroscopic table his right upper extremity was prepped and draped in a sterile fashion. A timeout was performed. 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 A wire was passed through this access and the needle was removed. A micro-sheath was placed and through this she Glidewire was advanced into the central system under fluoroscopic guidance. We carefully navigated the wire through the SVC and into the IVC down to the iliac vein. We then advanced the IVC filter sheath over the wire using a Seldinger technique and placed the tip of the sheath at the distal IVC. The sheath was flushed with saline. We then performed vena cava gram in the renal veins were identified and marked for placement of the filter. We then deployed and infrarenal IVC filter under fluoroscopic guidance. I would've preferred for the filter to be slightly more proximal towards the renal veins, but it did jump a small amount distally at final deployment, but is still in good position below the renal veins. There is a very scant tilt but is not clinically significant. Completion venogram was performed, see interpretation above. Following this, we removed the sheath and all pressure at the antecubital basilic vein site for 5 minutes for good hemostasis and sterile dressings were applied. The patient was then taken to recovery in stable condition and transfe rred back to his room. He tolerated the procedure well with no sedation. ESTIMATED BLOOD LOSS: Approximately 2 mL. COMPLICATIONS: None. PLAN: Okay to resume preoperative activity and diet as tolerated. Recommend starting anticoagulation once it is clinically safe from a neurologic standpoint. We would be happy to see the patient back in 3 months to discuss options for filter removal if this is an option based on his clinical situation. We appreciate the opportunity to participate in the care of this patient. MIREYA CEDENO MD Dec 24, 2019 18:06
[2019-12-24 18:36] VITALS: BP 132/80
[2019-12-24 21:11] VITALS: BP 111/59
[2019-12-24] MEDS: MOM 30ML SUSPENSION UDC PO PRN (21:49)
[2019-12-25] MEDS: ONDANSETRON 4 MG TAB (S0181) PO SCH ×4 (05:15→17:55)
[2019-12-25 05:52] VITALS: BP 118/63
[2019-12-25] MEDS: HumaLOG INSULIN (NovoLOG) PER UNIT SC SCH ×4 (09:07→21:00)
[2019-12-25] MEDS: PANTOPRAZOLE 40MG TAB (PROTONIX) PO SCH (09:08)
[2019-12-25] MEDS: HEPARIN SOD (PORCINE) 5000 UNITS/ML VIAL (J1644 PER 1000UNITS) SC SCH ×2 (09:08→21:49)
[2019-12-25] MEDS: SERTRALINE HCL 25 MG TABLET PO SCH (09:08)
[2019-12-25] MEDS: ATORVASTATIN 20 MG TAB PO SCH (09:08)
[2019-12-25] MEDS: SENOKOT S TAB PO SCH ×2 (09:08→21:49)
[2019-12-25] MEDS: lisinopriL 5 MG TAB PO SCH (09:09)
[2019-12-25] MEDS: MOM 30ML SUSPENSION UDC PO PRN (09:09)
[2019-12-25] MEDS: amLODIPine 10 MG TAB PO SCH (09:11)
[2019-12-25] MEDS: REMEDY PHYTOPLEX Z-GUARD PASTE 113GM TUBE (FROM STOREROOM PRODUCT) TOP SCH ×3 (09:11→21:00)
[2019-12-25 14:00] VITALS: BP 130/78
--- NOTE | 2019-12-25 15:44 | IPNPDOC ---
PM&R Progress Note DATE OF SERVICE: Dec 25, 2019 Process Improvement Specialist Progress Note Subjective: Patient seen this morning s/p IVC filter placement last night for bilateral PEs in setting of extensive RLE DVT. He continues to deny chest pressure or shortness of breath. He is concerned his right foot is swollen. REVIEW OF SYSTEMS: The following is a completed review of systems and has been reviewed. Review of systems otherwise unremarkable. PAIN: Patient self reports no pain EYES: No recent vision changes EARS, NOSE, & THROAT: No throat pain, or dysphagia, or rhinorrhea CARDIOVASCULAR: Denies chest pain or palpitations PULMONARY: Denies shortness of breath GASTROINTESTINAL:+ fecal incontinence (improving) GENITOURINARY: +urinary incontinence (improving) MUSCULOSKELETAL: right sided paresis NEUROLOGICAL:right sided paresis HEMATOLOGICAL: denies easy bruising SKIN: denies rash PSYCHIATRIC: Unremarkable All other review of systems found to be negative. PHYSICAL EXAMINATION: VITAL SIGNS: Please see below. GENERAL: Pleasant and cooperative. No acute distress. HEENT: PERRL. Extraocular movements intact. Clear conjunctiva, +right sided facial droop CARDIOVASCULAR: Regular rate and rhythm. No murmurs, rubs, or gallops LUNGS: Clear to auscultation bilaterally. No wheezes. No rhonchi ABDOMEN: Soft, nontender, nondistended. Positive bowel sounds. Normal active bowel sounds NEUROLOGICAL: Alert and oriented times three. Cranial nerves II through XII grossly intact. Sensation grossly intact EXTREMITIES: 5\5 strength left upper extremities. Flaccid RUE, 0\5 strength right lower extremity except for trace hip abduction. 5/5 strength in left lower extremity. RLE and foot with mild edema SKIN: blanchable sacral erythema ASSESSMENT:54-year-old M with past medical history of HTN who presents status post left basal ganglia ICH PLAN: 1. 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 Neuro: s/p left basal ganglia ICH- off antiplatelet therapy -c/u BP management and statin for secondary stroke prevention -meclizine prn for dizziness -patient's dizziness resolved,repeat MRI negative for new infarct or bleed 3. Cardiac: HTN-monitor BPs and adjust prn, c/u Amlodipine and lisinopril- medicine consulted to assist in management 4. Resp: patient with mild desaturations on pulse-ox, CTA 12-24-19 + for bilateral PEs, vascular consulted s/p IVC filter placed 12-24-19 without complications- Dr. Cedeno consulted and recs appreciated -encourage incentive spirometry, monitor for infection 5. Endo: pre-diabetic, c/u ISS-well controlled 6. GI ppx: protonix 7. DVT ppx: heparin and TEds-+ extensive RLE DVT with PEs s.p IVC filter, therapeutic AC contraindicated, c/u low dose heparin 8. Skin: barrier cream at least TID, orders in place for frequent skin checks in setting of urinary and fecal incontinence 9. Psych: c/u Zoloft for depression and will help with motor recovery in stroke 10. Dispo: 01-09-20 to home Allergies Coded Allergies: No Known Drug Allergies (Verified Allergy, Unknown, 12/09/19) Vital Signs Vital Signs Date Time Temp Pulse Resp B/P (MAP) Pulse Ox O2 Delivery O2 Flow Rate FiO2 12/25/19 14:00 98.7 86 18 130/78 (95) 92 Room Air 12/24/19 17:36 2 Laboratory Data Labs 24H Laboratory Tests 2 12/24/19 16:37: Bedside Glucose (Misc Panel) 118H 12/24/19 18:32: Bedside Glucose (Misc Panel) 145H 12/24/19 21:49: Bedside Glucose (Misc Panel) 131H 12/25/19 06:16: Bedside Glucose (Misc Panel) 126H 12/25/19 11:39: Bedside Glucose (Misc Panel) 106H Current Medications Current Medications Current Medications Medications (Trade) Dose Ordered Sig/Shayy Route PRN Reason Start Time Stop Time Status Last Admin Dose Admin Acetaminophen (Tylenol Tab) 650 mg Q4HP PRN PO fever/MILD PAIN (PS 1-4) 12/17/19 17:15 Amlodipine Besylate (Norvasc) 10 mg DAILY PO 12/18/19 09:00 12/25/19 09:11 Atorvastatin Calcium (Lipitor) 60 mg DAILY PO 12/18/19 09:00 12/25/19 09:08 Dextrose (Dextrose 50%) 25 ml ASDIRECTED PRN IV SEE LABEL COMMENTS 2/11/20 17:15 Glucagon (Glucagon) 1 mg ASDIRECTED PRN SC SEE LABEL COMMENTS 12/17/19 17:15 Glucose (Glucose) 16 GM ASDIRECTED PRN PO SEE LABEL COMMENTS 12/17/19 17:15 Heparin Sodium (Porcine) (Heparin) 5,000 units Q12H SC 12/17/19 21:00 12/25/19 09:08 Insulin Human Lispro (HumaLOG INSULIN) SEE PROTOCOL TABLE AC SC 12/17/19 17:30 12/25/19 12:29 Insulin Human Lispro (HumaLOG INSULIN) SEE PROTOCOL TABLE QHS SC 12/17/19 21:00 Lisinopril (Prinivil) 5 mg DAILY PO 12/18/19 09:00 12/25/19 09:09 Magnesium Hydroxide (Milk Of Magnesia) 30 ml DAILYPRN PRN PO CONSTIPATION 12/17/19 17:15 12/25/19 09:09 Ondansetron HCl (Zofran) 4 mg Q6H PO 12/23/19 12:00 12/25/19 05:15 Pantoprazole Sodium (Protonix) 40 mg DAILY PO 12/17/19 09:00 12/25/19 09:08 Senna/Docusate Sodium (Senokot S) 1 tab BID PO 12/17/19 21:00 12/25/19 09:08 Sertraline HCl (Zoloft) 25 mg DAILY PO 12/18/19 09:00 12/25/19 09:08 ANIYA GREWAL MD Dec 25, 2019 15:44
[2019-12-25 21:14] VITALS: BP 119/56
[2019-12-26 05:55] VITALS: BP 117/64
[2019-12-26] MEDS: ONDANSETRON 4 MG TAB (S0181) PO SCH ×4 (06:00→17:22)
[2019-12-26 07:07] LABS: BASO % 0.5 % (0.0-1.0); EOS # 0.2 10^3/uL (0.0-0.5); EOS % 2.4 % (0.0-3.0); HEMATOCRIT 40.9 % (42.0-52.0); HEMOGLOBIN 13.5 g/dl (13.5-17.5); LYMPH % 23.5 % (24.0-44.0); MEAN CORPUSCULAR HEMOGLOBIN 30.3 pg (27.0-33.0); MEAN CORPUSCULAR VOLUME 91.7 fl (80.0-96.0); MONO # 0.8 10^3/uL (0.0-0.8); MONO % 9.3 % (0.0-5.0); NEUTROPHILS # 5.4 10^3/uL (1.5-8.5); NEUTROPHILS % 63.8 % (36.0-66.0); PLATELET COUNT, AUTOMATED 161 10^3/uL (150-450); RED BLOOD COUNT 4.46 10^6/uL (4.30-6.10); WHITE BLOOD COUNT 8.4 10^3/uL (4.0-10.0)
[2019-12-26 07:35] LABS: BLOOD UREA NITROGEN 24 MG/DL (7-18); CALCIUM LEVEL 8.9 MG/DL (8.5-10.1); CARBON DIOXIDE LEVEL 29 MEQ/L (21-32); CHLORIDE LEVEL 103 MEQ/L (98-107); CREATININE FOR GFR 0.79 MG/DL (0.70-1.30); GLOMERULAR FILTRATION RATE > 60.0 (>56); GLUCOSE, FASTING 117 MG/DL (70-100); POTASSIUM SERUM 3.9 MEQ/L (3.5-5.1); SODIUM LEVEL 135 MEQ/L (136-145)
[2019-12-26] MEDS: SERTRALINE HCL 25 MG TABLET PO SCH (08:20)
[2019-12-26] MEDS: PANTOPRAZOLE 40MG TAB (PROTONIX) PO SCH (08:20)
[2019-12-26] MEDS: amLODIPine 10 MG TAB PO SCH (08:20)
[2019-12-26] MEDS: HumaLOG INSULIN (NovoLOG) PER UNIT SC SCH ×4 (08:20→21:00)
[2019-12-26] MEDS: SENOKOT S TAB PO SCH ×2 (08:20→21:44)
[2019-12-26] MEDS: ATORVASTATIN 20 MG TAB PO SCH (08:20)
[2019-12-26] MEDS: HEPARIN SOD (PORCINE) 5000 UNITS/ML VIAL (J1644 PER 1000UNITS) SC SCH ×2 (08:20→21:44)
[2019-12-26] MEDS: lisinopriL 5 MG TAB PO SCH (08:21)
[2019-12-26] MEDS: REMEDY PHYTOPLEX Z-GUARD PASTE 113GM TUBE (FROM STOREROOM PRODUCT) TOP SCH ×3 (08:21→21:49)
[2019-12-26] MEDS: MOM 30ML SUSPENSION UDC PO PRN (08:21)
[2019-12-26] MEDS ORDERED: BISACODYL 10 MG SUPP PR ONE (11:00)
[2019-12-26 14:00] VITALS: BP 135/78
[2019-12-26 20:00] VITALS: BP 133/82
[2019-12-27 06:00] VITALS: BP 155/91
[2019-12-27] MEDS: ONDANSETRON 4 MG TAB (S0181) PO SCH ×4 (06:00→16:58)
[2019-12-27] MEDS: HumaLOG INSULIN (NovoLOG) PER UNIT SC SCH ×4 (07:59→21:00)
[2019-12-27] MEDS: PANTOPRAZOLE 40MG TAB (PROTONIX) PO SCH (08:00)
[2019-12-27] MEDS: lisinopriL 5 MG TAB PO SCH (08:00)
[2019-12-27] MEDS: SERTRALINE HCL 25 MG TABLET PO SCH (08:00)
[2019-12-27] MEDS: HEPARIN SOD (PORCINE) 5000 UNITS/ML VIAL (J1644 PER 1000UNITS) SC SCH ×2 (08:00→21:08)
[2019-12-27] MEDS: ATORVASTATIN 20 MG TAB PO SCH (08:00)
[2019-12-27] MEDS: REMEDY PHYTOPLEX Z-GUARD PASTE 113GM TUBE (FROM STOREROOM PRODUCT) TOP SCH ×3 (08:01→21:10)
[2019-12-27] MEDS: SENOKOT S TAB PO SCH ×2 (08:01→21:08)
[2019-12-27] MEDS: amLODIPine 10 MG TAB PO SCH (08:01)
[2019-12-27 14:00] VITALS: BP 120/67
[2019-12-27 20:21] VITALS: BP 133/69
[2019-12-28 05:52] VITALS: BP 114/58
[2019-12-28] MEDS: ONDANSETRON 4 MG TAB (S0181) PO SCH ×5 (05:59→23:32)
[2019-12-28] MEDS: PANTOPRAZOLE 40MG TAB (PROTONIX) PO SCH (09:01)
[2019-12-28] MEDS: ATORVASTATIN 20 MG TAB PO SCH (09:01)
[2019-12-28] MEDS: SERTRALINE HCL 25 MG TABLET PO SCH (09:01)
[2019-12-28] MEDS: SENOKOT S TAB PO SCH ×2 (09:01→21:21)
[2019-12-28] MEDS: lisinopriL 5 MG TAB PO SCH (09:01)
[2019-12-28] MEDS: REMEDY PHYTOPLEX Z-GUARD PASTE 113GM TUBE (FROM STOREROOM PRODUCT) TOP SCH ×3 (09:02→21:23)
[2019-12-28] MEDS: HumaLOG INSULIN (NovoLOG) PER UNIT SC SCH ×4 (09:02→21:00)
[2019-12-28] MEDS: HEPARIN SOD (PORCINE) 5000 UNITS/ML VIAL (J1644 PER 1000UNITS) SC SCH ×2 (09:02→21:21)
[2019-12-28] MEDS: amLODIPine 10 MG TAB PO SCH (09:02)
[2019-12-28 14:00] VITALS: BP 134/75
[2019-12-28 21:51] VITALS: BP 116/59
[2019-12-29 05:48] VITALS: BP 122/65
[2019-12-29] MEDS: ONDANSETRON 4 MG TAB (S0181) PO SCH ×3 (05:57→17:46)
[2019-12-29] MEDS: HumaLOG INSULIN (NovoLOG) PER UNIT SC SCH ×4 (07:59→20:52)
[2019-12-29] MEDS: lisinopriL 5 MG TAB PO SCH (08:00)
[2019-12-29] MEDS: amLODIPine 10 MG TAB PO SCH (08:00)
[2019-12-29] MEDS: SENOKOT S TAB PO SCH ×2 (08:00→20:50)
[2019-12-29] MEDS: REMEDY PHYTOPLEX Z-GUARD PASTE 113GM TUBE (FROM STOREROOM PRODUCT) TOP SCH ×3 (08:00→20:51)
[2019-12-29] MEDS: ATORVASTATIN 20 MG TAB PO SCH (08:00)
[2019-12-29] MEDS: HEPARIN SOD (PORCINE) 5000 UNITS/ML VIAL (J1644 PER 1000UNITS) SC SCH ×2 (08:00→20:50)
[2019-12-29] MEDS: PANTOPRAZOLE 40MG TAB (PROTONIX) PO SCH (08:00)
[2019-12-29] MEDS: SERTRALINE HCL 25 MG TABLET PO SCH (08:00)
[2019-12-29 08:09] LABS: BASO % 0.4 % (0.0-1.0); EOS # 0.2 10^3/uL (0.0-0.5); EOS % 1.9 % (0.0-3.0); HEMATOCRIT 41.6 % (42.0-52.0); HEMOGLOBIN 13.9 g/dl (13.5-17.5); LYMPH # 1.3 10^3/uL (1.5-5.0); LYMPH % 15.3 % (24.0-44.0); MEAN CORPUSCULAR HEMOGLOBIN 30.5 pg (27.0-33.0); MEAN CORPUSCULAR HGB CONC 33.4 g/dl (32.0-36.5); MEAN CORPUSCULAR VOLUME 91.4 fl (80.0-96.0); MONO # 0.6 10^3/uL (0.0-0.8); MONO % 7.4 % (0.0-5.0); NEUTROPHILS # 6.4 10^3/uL (1.5-8.5); NEUTROPHILS % 74.5 % (36.0-66.0); PLATELET COUNT, AUTOMATED 187 10^3/uL (150-450); RED BLOOD COUNT 4.55 10^6/uL (4.30-6.10); WHITE BLOOD COUNT 8.5 10^3/uL (4.0-10.0)
[2019-12-29 08:17] LABS: BLOOD UREA NITROGEN 23 MG/DL (7-18); CALCIUM LEVEL 8.8 MG/DL (8.5-10.1); CARBON DIOXIDE LEVEL 26 MEQ/L (21-32); CHLORIDE LEVEL 104 MEQ/L (98-107); CREATININE FOR GFR 0.83 MG/DL (0.70-1.30); GLOMERULAR FILTRATION RATE > 60.0 (>56); GLUCOSE, FASTING 180 MG/DL (70-100); POTASSIUM SERUM 3.9 MEQ/L (3.5-5.1); SODIUM LEVEL 136 MEQ/L (136-145)
[2019-12-29 14:00] VITALS: BP 121/65
[2019-12-29 20:00] VITALS: BP 143/94
[2019-12-29] MEDS: MOM 30ML SUSPENSION UDC PO PRN (20:53)
[2019-12-30] MEDS: ONDANSETRON 4 MG TAB (S0181) PO SCH ×4 (05:46→18:00)
[2019-12-30 06:00] VITALS: BP 119/71
[2019-12-30] MEDS: ATORVASTATIN 20 MG TAB PO SCH (09:48)
[2019-12-30] MEDS: PANTOPRAZOLE 40MG TAB (PROTONIX) PO SCH (09:48)
[2019-12-30] MEDS: SERTRALINE HCL 25 MG TABLET PO SCH (09:48)
[2019-12-30] MEDS: SENOKOT S TAB PO SCH ×2 (09:48→21:06)
[2019-12-30] MEDS: HumaLOG INSULIN (NovoLOG) PER UNIT SC SCH ×4 (09:48→21:00)
[2019-12-30] MEDS: lisinopriL 5 MG TAB PO SCH (09:48)
[2019-12-30] MEDS: amLODIPine 10 MG TAB PO SCH (09:48)
[2019-12-30] MEDS: REMEDY PHYTOPLEX Z-GUARD PASTE 113GM TUBE (FROM STOREROOM PRODUCT) TOP SCH ×3 (09:49→21:00)
[2019-12-30] MEDS: HEPARIN SOD (PORCINE) 5000 UNITS/ML VIAL (J1644 PER 1000UNITS) SC SCH ×2 (09:49→21:06)
[2019-12-30 14:00] VITALS: BP 135/76
--- NOTE | 2019-12-30 14:57 | IPNPDOC ---
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 REVIEW OF SYSTEMS: The following is a completed review of systems and has been reviewed. Review of systems otherwise unremarkable. PAIN: Patient self reports no pain EYES: No recent vision changes EARS, NOSE, & THROAT: No throat pain, or dysphagia, or rhinorrhea CARDIOVASCULAR: Denies chest pain or palpitations PULMONARY: Denies shortness of breath GASTROINTESTINAL:+ constipation GENITOURINARY: +urinary incontinence (improving) MUSCULOSKELETAL: right sided paresis NEUROLOGICAL:right sided paresis HEMATOLOGICAL: denies easy bruising SKIN: denies rash PSYCHIATRIC: Unremarkable All other review of systems found to be negative. PHYSICAL EXAMINATION: VITAL SIGNS: Please see below. GENERAL: Pleasant and cooperative. No acute distress. HEENT: PERRL. Extraocular movements intact. Clear conjunctiva, +right sided facial droop CARDIOVASCULAR: Regular rate and rhythm. No murmurs, rubs, or gallops LUNGS: Clear to auscultation bilaterally. No wheezes. No rhonchi ABDOMEN: Soft, nontender, nondistended. Positive bowel sounds. Normal active bowel sounds NEUROLOGICAL: Alert and oriented times three. Cranial nerves II through XII grossly intact. Sensation grossly intact EXTREMITIES: 5\5 strength left upper extremities. Flaccid RUE, 0\5 strength right lower extremity except for trace hip abduction. 5/5 strength in left lower extremity. RLE and foot with mild edema SKIN: blanchable sacral erythema ASSESSMENT:54-year-old M with past medical history of HTN who presents status post left basal ganglia ICH PLAN: 1. 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 Neuro: s/p left basal ganglia ICH- off antiplatelet therapy -c/u BP management and statin for secondary stroke prevention -meclizine prn for dizziness-stable -patient's dizziness resolved,repeat MRI negative for new infarct or bleed 3. Cardiac: HTN-monitor BPs and adjust prn, c/u Amlodipine and lisinopril- medicine consulted to assist in management 4. Resp: patient with mild desaturations on pulse-ox, CTA 12-24-19 + for bilateral PEs, vascular consulted s/p IVC filter placed 12-24-19 without complications- Dr. Cedeno consulted and recs appreciated -encourage incentive spirometry, monitor for infection 5. Endo: pre-diabetic, c/u ISS-well controlled 6. GI ppx: protonix -patient reporting constipation, adding daily suppository and increasing Sennakot 7. DVT ppx: heparin and TEds-+ extensive RLE DVT with PEs s/p IVC filter, therapeutic AC contraindicated, c/u low dose heparin 8. Skin: barrier cream 9. Psych: c/u Zoloft for depression and will help with motor recovery in stroke 10. Dispo: 01-09-20 to home Allergies Coded Allergies: No Known Drug Allergies (Verified Allergy, Unknown, 12/09/19) Vital Signs Vital Signs Date Time Temp Pulse Resp B/P (MAP) Pulse Ox O2 Delivery O2 Flow Rate FiO2 12/30/19 14:00 98.2 99 18 135/76 (95) 94 Room Air 12/24/19 17:36 2 Laboratory Data Labs 24H Laboratory Tests 2 12/29/19 16:37: Bedside Glucose (Misc Panel) 111H 12/29/19 20:42: Bedside Glucose (Misc Panel) 142H 12/30/19 08:15: Bedside Glucose (Misc Panel) 185H 12/30/19 12:15: Bedside Glucose (Misc Panel) 101 Current Medications Current Medications Current Medications Medications (Trade) Dose Ordered Sig/Shayy Route PRN Reason Start Time Stop Time Status Last Admin Dose Admin Acetaminophen (Tylenol Tab) 650 mg Q4HP PRN PO fever/MILD PAIN (PS 1-4) 12/17/19 17:15 Amlodipine Besylate (Norvasc) 10 mg DAILY PO 12/18/19 09:00 12/30/19 09:48 Atorvastatin Calcium (Lipitor) 60 mg DAILY PO 12/18/19 09:00 12/30/19 09:48 Dextrose (Dextrose 50%) 25 ml ASDIRECTED PRN IV SEE LABEL COMMENTS 12/17/19 17:15 Glucagon (Glucagon) 1 mg ASDIRECTED PRN SC SEE LABEL COMMENTS 12/17/19 17:15 Glucose (Glucose) 16 GM ASDIRECTED PRN PO SEE LABEL COMMENTS 12/17/19 17:15 Heparin Sodium (Porcine) (Heparin) 5,000 units Q12H SC 12/17/19 21:00 12/30/19 09:49 Insulin Human Lispro (HumaLOG INSULIN) SEE PROTOCOL TABLE AC SC 12/17/19 17:30 12/30/19 09:48 Insulin Human Lispro (HumaLOG INSULIN) SEE PROTOCOL TABLE QHS SC 12/17/19 21:00 Lisinopril (Prinivil) 5 mg DAILY PO 12/18/19 09:00 12/30/19 09:48 Magnesium Hydroxide (Milk Of Magnesia) 30 ml DAILYPRN PRN PO CONSTIPATION 12/17/19 17:15 12/29/19 20:53 Miscellaneous (Unresolved Clarification Entry) SEE LABEL COMMENTS DAILY XX 12/29/19 09:00 12/30/19 09:30 DC 12/29/19 11:22 Ondansetron HCl (Zofran) 4 mg Q6H PO 12/23/19 12:00 12/30/19 13:20 Pantoprazole Sodium (Protonix) 40 mg DAILY PO 12/17/19 09:00 12/30/19 09:48 Senna/Docusate Sodium (Senokot S) 1 tab BID PO 12/17/19 21:00 12/30/19 09:48 Sertraline HCl (Zoloft) 25 mg DAILY PO 12/18/19 09:00 12/30/19 09:48 ANIYA GREWAL MD Dec 30, 2019 14:57
[2019-12-30 20:00] VITALS: BP 128/74
[2019-12-30] MEDS ORDERED: BISACODYL 10 MG SUPP PR SCH (21:00)
[2019-12-31 06:00] VITALS: BP 112/56
[2019-12-31] MEDS: ONDANSETRON 4 MG TAB (S0181) PO SCH ×4 (06:00→17:50)
[2019-12-31] MEDS: ATORVASTATIN 20 MG TAB PO SCH (08:03)
[2019-12-31] MEDS: HumaLOG INSULIN (NovoLOG) PER UNIT SC SCH ×4 (08:03→20:20)
[2019-12-31] MEDS: HEPARIN SOD (PORCINE) 5000 UNITS/ML VIAL (J1644 PER 1000UNITS) SC SCH ×2 (08:03→20:20)
[2019-12-31] MEDS: SENOKOT S TAB PO SCH ×2 (08:04→20:20)
[2019-12-31] MEDS: PANTOPRAZOLE 40MG TAB (PROTONIX) PO SCH (08:05)
[2019-12-31] MEDS: SERTRALINE HCL 25 MG TABLET PO SCH (08:05)
[2019-12-31] MEDS: amLODIPine 10 MG TAB PO SCH (08:05)
[2019-12-31] MEDS: lisinopriL 5 MG TAB PO SCH (08:05)
[2019-12-31] MEDS: REMEDY PHYTOPLEX Z-GUARD PASTE 113GM TUBE (FROM STOREROOM PRODUCT) TOP SCH ×3 (08:05→20:21)
[2019-12-31 08:35] VITALS: BP 135/77
[2019-12-31 14:00] VITALS: BP 138/84
--- NOTE | 2019-12-31 17:48 | IPNPDOC ---
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 REVIEW OF SYSTEMS: The following is a completed review of systems and has been reviewed. Review of systems otherwise unremarkable. PAIN: Patient self reports no pain EYES: No recent vision changes EARS, NOSE, & THROAT: No throat pain, or dysphagia, or rhinorrhea CARDIOVASCULAR: Denies chest pain or palpitations PULMONARY: Denies shortness of breath GASTROINTESTINAL:+ constipation GENITOURINARY: +urinary incontinence (improving) MUSCULOSKELETAL: right sided paresis NEUROLOGICAL:right sided paresis HEMATOLOGICAL: denies easy bruising SKIN: denies rash PSYCHIATRIC: Unremarkable All other review of systems found to be negative. PHYSICAL EXAMINATION: VITAL SIGNS: Please see below. GENERAL: Pleasant and cooperative. No acute distress. HEENT: PERRL. Extraocular movements intact. Clear conjunctiva, +right sided facial droop CARDIOVASCULAR: Regular rate and rhythm. No murmurs, rubs, or gallops LUNGS: Clear to auscultation bilaterally. No wheezes. No rhonchi ABDOMEN: Soft, nontender, nondistended. Positive bowel sounds. Normal active bowel sounds NEUROLOGICAL: Alert and oriented times three. Cranial nerves II through XII grossly intact. Sensation grossly intact EXTREMITIES: 5\5 strength left upper extremities. Flaccid RUE, 0\5 strength right lower extremity except for trace hip abduction. 5/5 strength in left lower extremity. RLE and foot with mild edema SKIN: blanchable sacral erythema ASSESSMENT:54-year-old M with past medical history of HTN who presents status post left basal ganglia ICH PLAN: 1. 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 Neuro: s/p left basal ganglia ICH- off antiplatelet therapy -c/u BP management and statin for secondary stroke prevention -meclizine prn for dizziness-stable -patient's dizziness resolved,repeat MRI negative for new infarct or bleed 3. Cardiac: HTN-monitor BPs and adjust prn, c/u Amlodipine and lisinopril- medicine consulted to assist in management 4. Resp: patient with mild desaturations on pulse-ox, CTA 12-24-19 + for bilateral PEs, vascular consulted s/p IVC filter placed 12-24-19 without c omplications- Dr. Cedeno consulted and recs appreciated -encourage incentive spirometry, monitor for infection 5. Endo: pre-diabetic, c/u ISS-well controlled 6. GI ppx: protonix -patient reporting constipation, c/u qHS suppository and increasing Senokot 7. DVT ppx: heparin and TEds-+ extensive RLE DVT with PEs s/p IVC filter, therapeutic AC contraindicated, c/u low dose heparin 8. Skin: barrier cream 9. Psych: c/u Zoloft for depression and will help with motor recovery in stroke 10. Dispo: 01-16-20 to home, progressing towards goals Allergies Coded Allergies: No Known Drug Allergies (Verified Allergy, Unknown, 12/09/19) Vital Signs Vital Signs Date Time Temp Pulse Resp B/P (MAP) Pulse Ox O2 Delivery O2 Flow Rate FiO2 12/31/19 14:00 98.6 86 18 138/84 (102) 94 Room Air Laboratory Data Labs 24H Laboratory Tests 2 12/30/19 19:36: Bedside Glucose (Misc Panel) 110H 12/31/19 05:48: Bedside Glucose (Misc Panel) 124H 12/31/19 12:04: Bedside Glucose (Misc Panel) 124H 12/31/19 16:41: Bedside Glucose (Misc Panel) 99 Current Medications Current Medications Current Medications Medications (Trade) Dose Ordered Sig/Shayy Route PRN Reason Start Time Stop Time Status Last Admin Dose Admin Acetaminophen (Tylenol Tab) 650 mg Q4HP PRN PO fever/MILD PAIN (PS 1-4) 12/17/19 17:15 Amlodipine Besylate (Norvasc) 10 mg DAILY PO 12/18/19 09:00 12/31/19 08:05 Atorvastatin Calcium (Lipitor) 60 mg DAILY PO 12/18/19 09:00 12/31/19 08:03 Bisacodyl (Dulcolax Suppository) 10 mg DAILY@2000 [place] 12/31/19 20:00 Bisacodyl (Dulcolax Suppository) 10 mg QHS [place] 12/30/19 21:00 12/31/19 14:07 DC Dextrose (Dextrose 50%) 25 ml ASDIRECTED PRN IV SEE LABEL COMMENTS 12/17/19 17:15 Glucagon (Glucagon) 1 mg ASDIRECTED PRN SC SEE LABEL COMMENTS 12/17/19 17:15 Glucose (Glucose) 16 GM ASDIRECTED PRN PO SEE LABEL COMMENTS 12/17/19 17:15 Heparin Sodium (Porcine) (Heparin) 5,000 units Q12H SC 12/17/19 21:00 12/31/19 08:03 Insulin Human Lispro (HumaLOG INSULIN) SEE PROTOCOL TABLE AC SC 12/17/19 17:30 12/31/19 12:12 Insulin Human Lispro (HumaLOG INSULIN) SEE PROTOCOL TABLE QHS SC 12/17/19 21:00 Lisinopril (Prinivil) 5 mg DAILY PO 12/18/19 09:00 12/31/19 08:05 Magnesium Hydroxide (Milk Of Magnesia) 30 ml DAILYPRN PRN PO CONSTIPATION 12/17/19 17:15 12/29/19 20:53 Miscellaneous (Unresolved Clarification Entry) SEE LABEL COMMENTS DAILY XX 12/29/19 09:00 12/30/19 09:30 DC 12/29/19 11:22 Ondansetron HCl (Zofran) 4 mg Q6H PO 12/23/19 12:00 12/30/19 13:20 Pantoprazole Sodium (Protonix) 40 mg DAILY PO 12/17/19 09:00 12/31/19 08:05 Senna/Docusate Sodium (Senokot S) 1 tab BID PO 12/17/19 21:00 12/30/19 14:49 DC 12/30/19 09:48 Senna/Docusate Sodium (Senokot S) 2 tab BID PO 12/30/19 21:00 12/31/19 08:04 Sertraline HCl (Zoloft) 25 mg DAILY PO 12/18/19 09:00 12/31/19 08:05 ANIYA GREWAL MD Dec 31, 2019 17:48
[2019-12-31 20:00] VITALS: BP 109/58
[2019-12-31] MEDS: BISACODYL 10 MG SUPP PR SCH (20:20)
[2020-01-01 05:33] VITALS: BP 119/60
[2020-01-01] MEDS: ONDANSETRON 4 MG TAB (S0181) PO SCH ×4 (06:00→17:01)
[2020-01-01 06:48] LABS: BASO # 0.1 10^3/uL (0.0-0.2); BASO % 0.6 % (0.0-1.0); EOS # 0.2 10^3/uL (0.0-0.5); HEMATOCRIT 40.3 % (42.0-52.0); HEMOGLOBIN 13.4 g/dl (13.5-17.5); LYMPH # 1.9 10^3/uL (1.5-5.0); LYMPH % 23.8 % (24.0-44.0); MEAN CORPUSCULAR HEMOGLOBIN 30.9 pg (27.0-33.0); MEAN CORPUSCULAR HGB CONC 33.3 g/dl (32.0-36.5); MEAN CORPUSCULAR VOLUME 92.9 fl (80.0-96.0); MONO # 0.8 10^3/uL (0.0-0.8); MONO % 9.7 % (0.0-5.0); NEUTROPHILS # 5.1 10^3/uL (1.5-8.5); NEUTROPHILS % 63.5 % (36.0-66.0); PLATELET COUNT, AUTOMATED 177 10^3/uL (150-450); RED BLOOD COUNT 4.34 10^6/uL (4.30-6.10); WHITE BLOOD COUNT 8.1 10^3/uL (4.0-10.0)
[2020-01-01 07:09] LABS: BLOOD UREA NITROGEN 17 MG/DL (7-18); CALCIUM LEVEL 9.3 MG/DL (8.5-10.1); CARBON DIOXIDE LEVEL 30 MEQ/L (21-32); CHLORIDE LEVEL 103 MEQ/L (98-107); CREATININE FOR GFR 0.78 MG/DL (0.70-1.30); GLOMERULAR FILTRATION RATE > 60.0 (>56); GLUCOSE, FASTING 112 MG/DL (70-100); SODIUM LEVEL 136 MEQ/L (136-145)
[2020-01-01] MEDS: SERTRALINE HCL 25 MG TABLET PO SCH (08:55)
[2020-01-01] MEDS: PANTOPRAZOLE 40MG TAB (PROTONIX) PO SCH (08:55)
[2020-01-01] MEDS: ATORVASTATIN 20 MG TAB PO SCH (08:55)
[2020-01-01] MEDS: amLODIPine 10 MG TAB PO SCH (08:55)
[2020-01-01] MEDS: SENOKOT S TAB PO SCH ×2 (08:55→20:32)
[2020-01-01] MEDS: lisinopriL 5 MG TAB PO SCH (08:56)
[2020-01-01] MEDS: HEPARIN SOD (PORCINE) 5000 UNITS/ML VIAL (J1644 PER 1000UNITS) SC SCH ×2 (08:56→20:33)
[2020-01-01] MEDS: HumaLOG INSULIN (NovoLOG) PER UNIT SC SCH ×4 (08:56→20:33)
[2020-01-01] MEDS: REMEDY PHYTOPLEX Z-GUARD PASTE 113GM TUBE (FROM STOREROOM PRODUCT) TOP SCH ×3 (08:57→20:35)
[2020-01-01 14:00] VITALS: BP 119/69
[2020-01-01] MEDS: BISACODYL 10 MG SUPP PR SCH (20:00)
[2020-01-01 21:16] VITALS: BP 131/83
[2020-01-02] MEDS: ONDANSETRON 4 MG TAB (S0181) PO SCH ×4 (05:43→18:00)
[2020-01-02 05:47] VITALS: BP 106/56
[2020-01-02] MEDS: HumaLOG INSULIN (NovoLOG) PER UNIT SC SCH ×4 (08:34→21:00)
[2020-01-02] MEDS: HEPARIN SOD (PORCINE) 5000 UNITS/ML VIAL (J1644 PER 1000UNITS) SC SCH ×2 (08:35→21:34)
[2020-01-02] MEDS: PANTOPRAZOLE 40MG TAB (PROTONIX) PO SCH (08:35)
[2020-01-02] MEDS: amLODIPine 10 MG TAB PO SCH (08:35)
[2020-01-02] MEDS: SERTRALINE HCL 25 MG TABLET PO SCH (08:35)
[2020-01-02] MEDS: SENOKOT S TAB PO SCH ×2 (08:36→21:34)
[2020-01-02] MEDS: ATORVASTATIN 20 MG TAB PO SCH (08:36)
[2020-01-02] MEDS: REMEDY PHYTOPLEX Z-GUARD PASTE 113GM TUBE (FROM STOREROOM PRODUCT) TOP SCH ×3 (08:36→21:00)
[2020-01-02] MEDS: lisinopriL 5 MG TAB PO SCH (08:36)
--- NOTE | 2020-01-02 12:29 | IPNPDOC ---
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 He denies having trouble breathing or chest pain. REVIEW OF SYSTEMS: The following is a completed review of systems and has been reviewed. Review of systems otherwise unremarkable. PAIN: Patient self reports no pain EYES: No recent vision changes EARS, NOSE, & THROAT: No throat pain, or dysphagia, or rhinorrhea CARDIOVASCULAR: Denies chest pain or palpitations PULMONARY: Denies shortness of breath GASTROINTESTINAL: denies constipation/diarrhea GENITOURINARY: +urinary incontinence (improving) MUSCULOSKELETAL: right sided paresis NEUROLOGICAL:right sided paresis HEMATOLOGICAL: denies easy bruising SKIN: denies rash PSYCHIATRIC: Unremarkable All other review of systems found to be negative. PHYSICAL EXAMINATION: VITAL SIGNS: Please see below. GENERAL: Pleasant and cooperative. No acute distress. HEENT: PERRL. Extraocular movements intact. Clear conjunctiva, +right sided facial droop CARDIOVASCULAR: Regular rate and rhythm. No murmurs, rubs, or gallops LUNGS: Clear to auscultation bilaterally. No wheezes. No rhonchi ABDOMEN: Soft, nontender, nondistended. Positive bowel sounds. Normal active bowel sounds NEUROLOGICAL: Alert and oriented times three. Cranial nerves II through XII grossly intact. Sensation grossly intact EXTREMITIES: 5\5 strength left upper extremities. Flaccid RUE, 0\5 strength right lower extremity except for trace hip abduction. 5/5 strength in left lower extremity. RLE and foot with mild edema SKIN: blanchable sacral erythema ASSESSMENT:54-year-old M with past medical history of HTN who presents status post left basal ganglia ICH PLAN: 1. 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 Neuro: s/p left basal ganglia ICH- off antiplatelet therapy -c/u BP management and statin for secondary stroke prevention -meclizine prn for dizziness-stable -patient's dizziness resolved,repeat MRI negative for new infarct or bleed 3. Cardiac: HTN-monitor BPs and adjust prn, c/u Amlodipine and lisinopril- medicine consulted to assist in management 4. Resp: patient with mild desaturations on pulse-ox, CTA 12-24-19 + for bilateral PEs, vascular consulted s/p IVC filter placed 12-24-19 without complications- Dr. Cedeno consulted and recs appreciated -encourage incentive spirometry, monitor for infection 5. Endo: pre-diabetic, c/u ISS-well controlled 6. GI ppx: protonix -constipation improving, c/u qHS suppository and Senokot 7. DVT ppx: heparin and TEds-+ extensive RLE DVT with PEs s/p IVC filter, therapeutic AC contraindicated, c/u low dose heparin 8. Skin: barrier cream 9. Psych: c/u Zoloft for depression and will help with motor recovery in stroke 10. Dispo: 01-16-20 to home, progressing towards goals Allergies Coded Allergies: No Known Drug Allergies (Verified Allergy, Unknown, 12/09/19) Vital Signs Vital Signs Date Time Temp Pulse Resp B/P (MAP) Pulse Ox O2 Delivery O2 Flow Rate FiO2 01/02/20 08:36 106/56 01/02/20 08:35 66 01/02/20 05:47 97.4 18 100 Room Air Laboratory Data Labs 24H Laboratory Tests 2 01/01/20 16:44: Bedside Glucose (Misc Panel) 83 01/01/20 20:26: Bedside Glucose (Misc Panel) 110H 01/02/20 06:02: Bedside Glucose (Misc Panel) 109H 01/02/20 11:39: Bedside Glucose (Misc Panel) 96 Current Medications Current Medications Current Medications Medications (Trade) Dose Ordered Sig/Shayy Route PRN Reason Start Time Stop Time Status Last Admin Dose Admin Acetaminophen (Tylenol Tab) 650 mg Q4HP PRN PO fever/MILD PAIN (PS 1-4) 12/17/19 17:15 Amlodipine Besylate (Norvasc) 10 mg DAILY PO 12/18/19 09:00 01/02/20 08:35 Atorvastatin Calcium (Lipitor) 60 mg DAILY PO 12/18/19 09:00 01/02/20 08:36 Bisacodyl (Dulcolax Suppository) 10 mg DAILY@2000 [place] 12/31/19 20:00 12/31/19 20:20 Bisacodyl (Dulcolax Suppository) 10 mg QHS [place] 12/30/19 21:00 12/31/19 14:07 DC Dextrose (Dextrose 50%) 25 ml ASDIRECTED PRN IV SEE LABEL COMMENTS 12/17/19 17:15 Glucagon (Glucagon) 1 mg ASDIRECTED PRN SC SEE LABEL COMMENTS 12/17/19 17:15 Glucose (Glucose) 16 GM ASDIRECTED PRN PO SEE LABEL COMMENTS 12/17/19 17:15 Heparin Sodium (Porcine) (Heparin) 5,000 units Q12H SC 12/17/19 21:00 01/02/20 08:35 Insulin Human Lispro (HumaLOG INSULIN) SEE PROTOCOL TABLE AC SC 12/17/19 17:30 01/02/20 08:34 Insulin Human Lispro (HumaLOG INSULIN) SEE PROTOCOL TABLE QHS SC 12/17/19 21:00 Lisinopril (Prinivil) 5 mg DAILY PO 12/18/19 09:00 01/02/20 08:36 Magnesium Hydroxide (Milk Of Magnesia) 30 ml DAILYPRN PRN PO CONSTIPATION 12/17/19 17:15 12/29/19 20:53 Miscellaneous (Unresolved Clarification Entry) SEE LABEL COMMENTS DAILY XX 12/29/19 09:00 12/30/19 09:30 DC 12/29/19 11:22 Ondansetron HCl (Zofran) 4 mg Q6H PO 12/23/19 12:00 12/30/19 13:20 Pantoprazole Sodium (Protonix) 40 mg DAILY PO 12/17/19 09:00 01/02/20 08:35 Senna/Docusate Sodium (Senokot S) 1 tab BID PO 12/17/19 21:00 12/30/19 14:49 DC 12/30/19 09:48 Senna/Docusate Sodium (Senokot S) 2 tab BID PO 12/30/19 21:00 01/02/20 08:36 Sertraline HCl (Zoloft) 25 mg DAILY PO 12/18/19 09:00 01/02/20 08:35 ANIYA GREWAL MD Jan 02, 2020 12:29
--- NOTE | 2020-01-02 12:29 | IPNPDOC ---
PM&R Progress Note DATE OF SERVICE: Jan 02, 2020 [employer] Progress Note Subjective: Patient wondering if he will qualify for a hospital bed and is interested in an overhead trapeze/vertical rail to help himself up out of bed. REVIEW OF SYSTEMS: The following is a completed review of systems and has been reviewed. Review of systems otherwise unremarkable. PAIN: Patient self reports no pain EYES: No recent vision changes EARS, NOSE, & THROAT: No throat pain, or dysphagia, or rhinorrhea CARDIOVASCULAR: Denies chest pain or palpitations PULMONARY: Denies shortness of breath GASTROINTESTINAL: denies constipation/diarrhea GENITOURINARY: +urinary incontinence (improving) MUSCULOSKELETAL: right sided paresis NEUROLOGICAL:right sided paresis HEMATOLOGICAL: denies easy bruising SKIN: denies rash PSYCHIATRIC: Unremarkable All other review of systems found to be negative. PHYSICAL EXAMINATION: VITAL SIGNS: Please see below. GENERAL: Pleasant and cooperative. No acute distress. HEENT: PERRL. Extraocular movements intact. Clear conjunctiva, +right sided facial droop CARDIOVASCULAR: Regular rate and rhythm. No murmurs, rubs, or gallops LUNGS: Clear to auscultation bilaterally. No wheezes. No rhonchi ABDOMEN: Soft, nontender, nondistended. Positive bowel sounds. Normal active bowel sounds NEUROLOGICAL: Alert and oriented times three. Cranial nerves II through XII grossly intact. Sensation grossly intact EXTREMITIES: 5\5 strength left upper extremities. Flaccid RUE, 0\5 strength right lower extremity except for trace hip abduction. 5/5 strength in left lower extremity. RLE and foot with mild edema SKIN: blanchable sacral erythema ASSESSMENT:54-year-old M with past medical history of HTN who presents status po st left basal ganglia ICH PLAN: 1. 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 Neuro: s/p left basal ganglia ICH- off antiplatelet therapy -c/u BP management and statin for secondary stroke prevention -meclizine prn for dizziness-stable -patient's dizziness resolved,repeat MRI negative for new infarct or bleed 3. Cardiac: HTN-monitor BPs and adjust prn, c/u Amlodipine and lisinopril- medicine consulted to assist in management 4. Resp: patient with mild desaturations on pulse-ox, CTA 12-24-19 + for bilateral PEs, vascular consulted s/p IVC filter placed 12-24-19 without complications- Dr. Cedeno consulted and recs appreciated -encourage incentive spirometry, monitor for infection 5. Endo: pre-diabetic, c/u ISS-well controlled 6. GI ppx: protonix -constipation improving, c/u qHS suppository and Senokot 7. DVT ppx: heparin and TEds-+ extensive RLE DVT with PEs s/p IVC filter, therapeutic AC contraindicated, c/u low dose heparin 8. Skin: barrier cream 9. Psych: c/u Zoloft for depression and will help with motor recovery in stroke 10. Dispo: 01-16-20 to home, progressing towards goals Allergies Coded Allergies: No Known Drug Allergies (Verified Allergy, Unknown, 12/09/19) Vital Signs Vital Signs Date Time Temp Pulse Resp B/P (MAP) Pulse Ox O2 Delivery O2 Flow Rate FiO2 01/02/20 08:36 106/56 01/02/20 08:35 66 01/02/20 05:47 97.4 18 100 Room Air Laboratory Data Labs 24H Laboratory Tests 2 01/01/20 16:44: Bedside Glucose (Misc Panel) 83 01/01/20 20:26: Bedside Glucose (Misc Panel) 110H 01/02/20 06:02: Bedside Glucose (Misc Panel) 109H 01/02/20 11:39: Bedside Glucose (Misc Panel) 96 Current Medications Current Medications Current Medications Medications (Trade) Dose Ordered Sig/Shayy Route PRN Reason Start Time Stop Time Status Last Admin Dose Admin Acetaminophen (Tylenol Tab) 650 mg Q4HP PRN PO fever/MILD PAIN (PS 1-4) 12/17/19 17:15 Amlodipine Besylate (Norvasc) 10 mg DAILY PO 12/18/19 09:00 01/02/20 08:35 Atorvastatin Calcium (Lipitor) 60 mg DAILY PO 12/18/19 09:00 01/02/20 08:36 Bisacodyl (Dulcolax Suppository) 10 mg DAILY@1999 [place] 12/31/19 20:00 12/31/19 20:20 Bisacodyl (Dulcolax Suppository) 10 mg QHS LA 12/30/19 21:00 12/31/19 14:07 DC Dextrose (Dextrose 50%) 25 ml ASDIRECTED PRN IV SEE LABEL COMMENTS 12/17/19 17:15 Glucagon (Glucagon) 1 mg ASDIRECTED PRN SC SEE LABEL COMMENTS 12/17/19 17:15 Glucose (Glucose) 16 GM ASDIRECTED PRN PO SEE LABEL COMMENTS 12/17/19 17:15 Heparin Sodium (Porcine) (Heparin) 5,000 units Q12H SC 12/17/19 21:00 01/02/20 08:35 Insulin Human Lispro (HumaLOG INSULIN) SEE PROTOCOL TABLE AC SC 12/17/19 17:30 01/02/20 08:34 Insulin Human Lispro (HumaLOG INSULIN) SEE PROTOCOL TABLE QHS SC 12/17/19 21:00 Lisinopril (Prinivil) 5 mg DAILY PO 12/18/19 09:00 01/02/20 08:36 Magnesium Hydroxide (Milk Of Magnesia) 30 ml DAILYPRN PRN PO CONSTIPATION 12/17/19 17:15 12/29/19 20:53 Miscellaneous (Unresolved Clarification Entry) SEE LABEL COMMENTS DAILY XX 12/29/19 09:00 12/30/19 09:30 DC 12/29/19 11:22 Ondansetron HCl (Zofran) 4 mg Q6H PO 12/23/19 12:00 12/30/19 13:20 Pantoprazole Sodium (Protonix) 40 mg DAILY PO 12/17/19 09:00 01/02/20 08:35 Senna/Docusate Sodium (Senokot S) 1 tab BID PO 12/17/19 21:00 12/30/19 14:49 DC 12/30/19 09:48 Senna/Docusate Sodium (Senokot S) 2 tab BID PO 12/30/19 21:00 01/02/20 08:36 Sertraline HCl (Zoloft) 25 mg DAILY PO 12/18/19 09:00 01/02/20 08:35 ANIYA GREWAL MD Jan 02, 2020 12:29
[2020-01-02 14:34] VITALS: BP 128/67
[2020-01-02] MEDS: BISACODYL 10 MG SUPP PR SCH (21:34)
[2020-01-02 21:41] VITALS: BP 112/59
[2020-01-03 05:42] VITALS: BP 124/65
[2020-01-03] MEDS: ONDANSETRON 4 MG TAB (S0181) PO SCH ×4 (06:00→17:47)
[2020-01-03] MEDS: HumaLOG INSULIN (NovoLOG) PER UNIT SC SCH ×4 (07:54→20:14)
[2020-01-03] MEDS: ATORVASTATIN 20 MG TAB PO SCH (07:54)
[2020-01-03] MEDS: HEPARIN SOD (PORCINE) 5000 UNITS/ML VIAL (J1644 PER 1000UNITS) SC SCH ×2 (07:55→20:11)
[2020-01-03] MEDS: PANTOPRAZOLE 40MG TAB (PROTONIX) PO SCH (07:55)
[2020-01-03] MEDS: SERTRALINE HCL 25 MG TABLET PO SCH (07:55)
[2020-01-03] MEDS: SENOKOT S TAB PO SCH ×2 (07:55→20:10)
[2020-01-03] MEDS: amLODIPine 10 MG TAB PO SCH (08:02)
[2020-01-03] MEDS: lisinopriL 5 MG TAB PO SCH (08:03)
[2020-01-03] MEDS: REMEDY PHYTOPLEX Z-GUARD PASTE 113GM TUBE (FROM STOREROOM PRODUCT) TOP SCH ×3 (08:03→20:22)
--- NOTE | 2020-01-03 12:08 | IPNPDOC ---
PM&R Progress Note DATE OF SERVICE: Jan 03, 2020 [employer] Progress Note Subjective: Patient wondering if he will qualify for a hospital bed and is interested in an overhead trapeze/vertical rail to help himself up out of bed. REVIEW OF SYSTEMS: The following is a completed review of systems and has been reviewed. Review of systems otherwise unremarkable. PAIN: Patient self reports no pain EYES: No recent vision changes EARS, NOSE, & THROAT: No throat pain, or dysphagia, or rhinorrhea CARDIOVASCULAR: Denies chest pain or palpitations PULMONARY: Denies shortness of breath GASTROINTESTINAL: denies constipation/diarrhea GENITOURINARY: +urinary incontinence (improving) MUSCULOSKELETAL: right sided paresis NEUROLOGICAL:right sided paresis HEMATOLOGICAL: denies easy bruising SKIN: denies rash PSYCHIATRIC: Unremarkable All other review of systems found to be negative. PHYSICAL EXAMINATION: VITAL SIGNS: Please see below. GENERAL: Pleasant and cooperative. No acute distress. HEENT: PERRL. Extraocular movements intact. Clear conjunctiva, +right sided facial droop CARDIOVASCULAR: Regular rate and rhythm. No murmurs, rubs, or gallops LUNGS: Clear to auscultation bilaterally. No wheezes. No rhonchi ABDOMEN: Soft, nontender, nondistended. Positive bowel sounds. Normal active bowel sounds NEUROLOGICAL: Alert and oriented times three. Cranial nerves II through XII grossly intact. Sensation grossly intact EXTREMITIES: 5\5 strength left upper extremities. Flaccid RUE, 0\5 strength right lower extremity except for trace hip abduction. 5/5 strength in left lower extremity. RLE and foot with mild edema SKIN: blanchable sacral erythema ASSESSMENT:54-year-old M with past medical history of HTN who presents status po st left basal ganglia ICH PLAN: 1. 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 Neuro: s/p left basal ganglia ICH- off antiplatelet therapy -c/u BP management and statin for secondary stroke prevention -meclizine prn for dizziness-stable -patient's dizziness resolved,repeat MRI negative for new infarct or bleed 3. Cardiac: HTN-monitor BPs and adjust prn, c/u Amlodipine and lisinopril- medicine consulted to assist in management 4. Resp: patient with mild desaturations on pulse-ox, CTA 12-24-19 + for bilateral PEs, vascular consulted s/p IVC filter placed 12-24-19 without complications- Dr. Cedeno consulted and recs appreciated -encourage incentive spirometry, monitor for infection 5. Endo: pre-diabetic, c/u ISS-well controlled 6. GI ppx: protonix -constipation improving, c/u qHS suppository and Senokot 7. DVT ppx: heparin and TEds-+ extensive RLE DVT with PEs s/p IVC filter, therapeutic AC contraindicated, c/u low dose heparin 8. Skin: barrier cream 9. Psych: c/u Zoloft for depression and will help with motor recovery in stroke 10. Dispo: 01-16-20 to home, progressing towards goals Allergies Coded Allergies: No Known Drug Allergies (Verified Allergy, Unknown, 12/09/19) Vital Signs Vital Signs Date Time Temp Pulse Resp B/P (MAP) Pulse Ox O2 Delivery O2 Flow Rate FiO2 01/03/20 08:03 131/66 01/03/20 08:02 77 01/03/20 05:42 97.4 18 95 Room Air Laboratory Data Labs 24H Laboratory Tests 2 01/02/20 16:52: Bedside Glucose (Misc Panel) 97 01/03/20 06:04: Bedside Glucose (Misc Panel) 117H 01/03/20 10:52: Bedside Glucose (Misc Panel) 100 Current Medications Current Medications Current Medications Medications (Trade) Dose Ordered Sig/Shayy Route PRN Reason Start Time Stop Time Status Last Admin Dose Admin Acetaminophen (Tylenol Tab) 650 mg Q4HP PRN PO fever/MILD PAIN (PS 1-4) 12/17/19 17:15 Amlodipine Besylate (Norvasc) 10 mg DAILY PO 12/18/19 09:00 01/03/20 08:02 Atorvastatin Calcium (Lipitor) 60 mg DAILY PO 12/18/19 09:00 01/03/20 07:54 Bisacodyl (Dulcolax Suppository) 10 mg DAILY@2000 CT 12/31/19 20:00 12/31/19 20:20 Bisacodyl (Dulcolax Suppository) [address] 12/30/19 21:00 12/31/19 14:07 DC Dextrose (Dextrose 50%) 25 ml ASDIRECTED PRN IV SEE LABEL COMMENTS 12/17/19 17:15 Glucagon (Glucagon) 1 mg ASDIRECTED PRN SC SEE LABEL COMMENTS 12/17/19 17:15 Glucose (Glucose) 16 GM ASDIRECTED PRN PO SEE LABEL COMMENTS 12/17/19 17:15 Heparin Sodium (Porcine) (Heparin) 5,000 units Q12H SC 12/17/19 21:00 01/03/20 07:55 Insulin Human Lispro (HumaLOG INSULIN) SEE PROTOCOL TABLE AC SC 12/17/19 17:30 01/03/20 07:54 Insulin Human Lispro (HumaLOG INSULIN) SEE PROTOCOL TABLE QHS SC 12/17/19 21:00 Lisinopril (Prinivil) 5 mg DAILY PO 12/18/19 09:00 01/03/20 08:03 Magnesium Hydroxide (Milk Of Magnesia) 30 ml DAILYPRN PRN PO CONSTIPATION 12/17/19 17:15 12/29/19 20:53 Miscellaneous (Unresolved Clarification Entry) SEE LABEL COMMENTS DAILY XX 12/29/19 09:00 12/30/19 09:30 DC 12/29/19 11:22 Ondansetron HCl (Zofran) 4 mg Q6H PO 12/23/19 12:00 12/30/19 13:20 Pantoprazole Sodium (Protonix) 40 mg DAILY PO 12/17/19 09:00 01/03/20 07:55 Senna/Docusate Sodium (Senokot S) 1 tab BID PO 12/17/19 21:00 12/30/19 14:49 DC 12/30/19 09:48 Senna/Docusate Sodium (Senokot S) 2 tab BID PO 12/30/19 21:00 01/03/20 07:55 Sertraline HCl (Zoloft) 25 mg DAILY PO 12/18/19 09:00 01/03/20 07:55 ANIYA GREWAL MD Jan 03, 2020 12:08
[2020-01-03 14:00] VITALS: BP 130/65
--- NOTE | 2020-01-03 15:59 | IPNPDOC ---
Text Note Date of Service The patient was seen on 01/03/20. NOTE Chief Complaint/HPI Mr Cho is a 54 year old male who was transferred to [facility] from [facility] for acute rehab secondary to a L-sided Hemorrhagic CVA on Monday. Pt stated he was at home when he noticed that his right side was numb and had become paralyzed. He reported he was transported to the ED at [facility] within 20 minutes of Sx onset. Pt is seen in the gym this morning. He has made some significant progress in his PT; per therapist, his strength is now 3/5, his ROM has increased. He is scheduled for d/c in approx 2 weeks. Objective Physical Examination General Exam: Positive: Alert, Cooperative, No Acute Distress Eye Exam: Positive: Conjunctiva & lids normal; Negative: Sclera icteric ENT Exam: Positive: Atraumatic, Mucous membr. moist/pink, Pharynx Normal, Tongue Midline Neck Exam: Positive: Supple; Negative: JVD, thyromegaly Chest Exam: Positive: Clear to auscultation, Normal air movement Heart Exam: Positive: Rate Normal, Regular Rhythm, Normal S1, Normal S2 Telemetry: Positive: No significant arrhythmia Abdomen Exam: Positive: Normal bowel sounds, Soft; Negative: Tenderness Extremity Exam: Negative: Clubbing, Cyanosis Skin Exam: Positive: Nl turgor and temperature Neuro Exam: Positive: Other (right-sided hemiparesis, right sided mouth droop, sensation intact, dysarthria); Negative: Normal Gait, Normal Speech Psych Exam: Positive: Mood NL Assessment /Plan Assessment Mr Cho is a 54 year old male who was transferred to [facility] from [facility] for acute rehab secondary to a Hemorrhagic CVA on Monday. Pt stated he was at home when he noticed that his right side was numb and had become paralyzed. Pt stated he has no improvement in his right sided paralysis since Monday. He reported he was transported to the ED at [facility] within 20 minutes of Sx onset. Pt has a PMHx which includes: DM, HTN, Morbid obesity with gastric bypass 2011, Hemorrhagic stroke. CT Head w/out contrast IMPRESSION: "1. Left acute basal ganglia intracranial hemorrhage. 2. Mild hemispheric volume loss. 3. Intracranial vascular calcification." Left CVA, with right sided hemiparesis - likely 2/2 uncontrolled HTN - continue to maintain good BP control - transferred to ARU; continued management per Dr. Lira HTN - currently well-controlled - continue Amlodipine, Lisinopril HLD - LDL 93; goal <70 with recent CVA and DM - Recommend, increasing dietary fiber; close f/u with PCP DMII - continue ISS with achs - continue diabetic diet Depression - currently on Sertraline 25mg. Will need outpt f/u within 6 weeks. BPPV - now resolved VS,Fishbone, I+O VS, Fishbone, I+O Vital Signs Date Time Temp Pulse Resp B/P (MAP) Pulse Ox O2 Delivery O2 Flow Rate FiO2 01/03/20 14:00 97.4 82 18 130/65 (86) 95 Room Air I&O- Last 24 Hours up to 6 AM 01/03/20 06:00 Intake Total 920 ml Output Total 1050 ml Balance -130 ml BERTRAM VARGAS PA-C Jan 03, 2020 15:59
[2020-01-03] MEDS: BISACODYL 10 MG SUPP PR SCH (20:00)
[2020-01-03 21:01] VITALS: BP 120/65
[2020-01-04 06:00] VITALS: BP 107/59
[2020-01-04] MEDS: ONDANSETRON 4 MG TAB (S0181) PO SCH ×4 (06:00→17:56)
[2020-01-04] MEDS: HEPARIN SOD (PORCINE) 5000 UNITS/ML VIAL (J1644 PER 1000UNITS) SC SCH ×2 (08:38→20:45)
[2020-01-04] MEDS: HumaLOG INSULIN (NovoLOG) PER UNIT SC SCH ×4 (08:38→20:45)
[2020-01-04] MEDS: SENOKOT S TAB PO SCH ×2 (08:38→20:44)
[2020-01-04] MEDS: SERTRALINE HCL 25 MG TABLET PO SCH (08:39)
[2020-01-04] MEDS: REMEDY PHYTOPLEX Z-GUARD PASTE 113GM TUBE (FROM STOREROOM PRODUCT) TOP SCH ×3 (08:39→20:45)
[2020-01-04] MEDS: ATORVASTATIN 20 MG TAB PO SCH (08:39)
[2020-01-04] MEDS: lisinopriL 5 MG TAB PO SCH (08:39)
[2020-01-04] MEDS: PANTOPRAZOLE 40MG TAB (PROTONIX) PO SCH (08:39)
[2020-01-04] MEDS: amLODIPine 10 MG TAB PO SCH (08:39)
[2020-01-04 14:00] VITALS: BP 132/63
[2020-01-04 20:00] VITALS: BP 109/55
[2020-01-04] MEDS: BISACODYL 10 MG SUPP PR SCH (20:00)
[2020-01-05] MEDS: ONDANSETRON 4 MG TAB (S0181) PO SCH ×5 (05:31→23:20)
[2020-01-05 06:00] VITALS: BP 134/75
[2020-01-05] MEDS: HumaLOG INSULIN (NovoLOG) PER UNIT SC SCH ×4 (07:08→20:19)
[2020-01-05] MEDS: ATORVASTATIN 20 MG TAB PO SCH (07:51)
[2020-01-05] MEDS: SENOKOT S TAB PO SCH ×2 (07:52→20:35)
[2020-01-05] MEDS: amLODIPine 10 MG TAB PO SCH (07:52)
[2020-01-05] MEDS: PANTOPRAZOLE 40MG TAB (PROTONIX) PO SCH (07:52)
[2020-01-05] MEDS: lisinopriL 5 MG TAB PO SCH (07:52)
[2020-01-05] MEDS: REMEDY PHYTOPLEX Z-GUARD PASTE 113GM TUBE (FROM STOREROOM PRODUCT) TOP SCH ×3 (07:53→20:19)
[2020-01-05] MEDS: SERTRALINE HCL 25 MG TABLET PO SCH (07:53)
[2020-01-05] MEDS: HEPARIN SOD (PORCINE) 5000 UNITS/ML VIAL (J1644 PER 1000UNITS) SC SCH ×2 (07:53→20:31)
[2020-01-05 08:00] VITALS: BP 127/74
[2020-01-05 14:00] VITALS: BP 115/57
[2020-01-05 14:53] VITALS: BP 182/110
[2020-01-05 15:25] VITALS: BP 142/73
[2020-01-05 20:00] VITALS: BP 120/61
[2020-01-05] MEDS: BISACODYL 10 MG SUPP PR SCH (20:00)
[2020-01-06] MEDS: ONDANSETRON 4 MG TAB (S0181) PO SCH ×3 (05:20→17:49)
[2020-01-06 06:00] VITALS: BP 128/60
[2020-01-06 06:35] LABS: BASO % 0.4 % (0.0-1.0); EOS # 0.2 10^3/uL (0.0-0.5); EOS % 2.4 % (0.0-3.0); HEMATOCRIT 41.2 % (42.0-52.0); HEMOGLOBIN 13.5 g/dl (13.5-17.5); LYMPH # 1.8 10^3/uL (1.5-5.0); LYMPH % 25.8 % (24.0-44.0); MEAN CORPUSCULAR HEMOGLOBIN 30.5 pg (27.0-33.0); MEAN CORPUSCULAR HGB CONC 32.8 g/dl (32.0-36.5); MEAN CORPUSCULAR VOLUME 93.2 fl (80.0-96.0); MONO # 0.6 10^3/uL (0.0-0.8); NEUTROPHILS # 4.2 10^3/uL (1.5-8.5); NEUTROPHILS % 62.3 % (36.0-66.0); PLATELET COUNT, AUTOMATED 192 10^3/uL (150-450); RED BLOOD COUNT 4.42 10^6/uL (4.30-6.10); WHITE BLOOD COUNT 6.8 10^3/uL (4.0-10.0)
[2020-01-06 06:57] LABS: BLOOD UREA NITROGEN 16 MG/DL (7-18); CALCIUM LEVEL 8.7 MG/DL (8.5-10.1); CARBON DIOXIDE LEVEL 29 MEQ/L (21-32); CHLORIDE LEVEL 106 MEQ/L (98-107); CREATININE FOR GFR 0.81 MG/DL (0.70-1.30); GLOMERULAR FILTRATION RATE > 60.0 (>56); GLUCOSE, FASTING 109 MG/DL (70-100); POTASSIUM SERUM 3.8 MEQ/L (3.5-5.1); SODIUM LEVEL 140 MEQ/L (136-145)
[2020-01-06] MEDS: ATORVASTATIN 20 MG TAB PO SCH (08:15)
[2020-01-06] MEDS: PANTOPRAZOLE 40MG TAB (PROTONIX) PO SCH (08:15)
[2020-01-06] MEDS: SENOKOT S TAB PO SCH ×2 (08:15→21:00)
[2020-01-06] MEDS: SERTRALINE HCL 25 MG TABLET PO SCH (08:15)
[2020-01-06] MEDS: amLODIPine 10 MG TAB PO SCH (08:16)
[2020-01-06] MEDS: HEPARIN SOD (PORCINE) 5000 UNITS/ML VIAL (J1644 PER 1000UNITS) SC SCH ×2 (08:16→21:22)
[2020-01-06] MEDS: lisinopriL 5 MG TAB PO SCH (08:16)
[2020-01-06] MEDS: HumaLOG INSULIN (NovoLOG) PER UNIT SC SCH (08:17)
[2020-01-06] MEDS: REMEDY PHYTOPLEX Z-GUARD PASTE 113GM TUBE (FROM STOREROOM PRODUCT) TOP SCH ×3 (08:22→21:23)
[2020-01-06] MEDS: metFORMIN (GLUCOPHAGE) 500 MG TAB PO SCH (12:05)
[2020-01-06 14:00] VITALS: BP 131/71
--- NOTE | 2020-01-06 14:49 | IPNPDOC ---
PM&R Progress Note DATE OF SERVICE: Jan 06, 2020 [employer] Progress Note Subjective: Patient reporting he is starting to get some return in his right arm and is very pleased. REVIEW OF SYSTEMS: The following is a completed review of systems and has been reviewed. Review of systems otherwise unremarkable. PAIN: Patient self reports no pain EYES: No recent vision changes EARS, NOSE, & THROAT: No throat pain, or dysphagia, or rhinorrhea CARDIOVASCULAR: Denies chest pain or palpitations PULMONARY: Denies shortness of breath GASTROINTESTINAL: denies constipation/diarrhea GENITOURINARY: +urinary incontinence (improving) MUSCULOSKELETAL: right sided paresis NEUROLOGICAL:right sided paresis HEMATOLOGICAL: denies easy bruising SKIN: denies rash PSYCHIATRIC: Unremarkable All other review of systems found to be negative. PHYSICAL EXAMINATION: VITAL SIGNS: Please see below. GENERAL: Pleasant and cooperative. No acute distress. HEENT: PERRL. Extraocular movements intact. Clear conjunctiva, +right sided facial droop CARDIOVASCULAR: Regular rate and rhythm. No murmurs, rubs, or gallops LUNGS: Clear to auscultation bilaterally. No wheezes. No rhonchi ABDOMEN: Soft, nontender, nondistended. Positive bowel sounds. Normal active bowel sounds NEUROLOGICAL: Alert and oriented times three. Cranial nerves II through XII grossly intact. Sensation grossly intact EXTREMITIES: 5\5 strength left upper extremities. Flaccid RUE, 0\5 strength r ight lower extremity except for trace hip abduction. 5/5 strength in left lower extremity. RLE and foot with mild edema SKIN: blanchable sacral erythema ASSESSMENT:54-year-old M with past medical history of HTN who presents status post left basal ganglia ICH PLAN: 1. 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 Neuro: s/p left basal ganglia ICH- off antiplatelet therapy -c/u BP management and statin for secondary stroke prevention -meclizine prn for dizziness-stable -patient's dizziness resolved,repeat MRI negative for new infarct or bleed 3. Cardiac: HTN-monitor BPs and adjust prn, c/u Amlodipine and lisinopril- medicine consulted to assist in management 4. Resp: patient with mild desaturations on pulse-ox, CTA 12-24-19 + for bilateral PEs, vascular consulted s/p IVC filter placed 12-24-19 without complications- Dr. Cedeno consulted and recs appreciated -encourage incentive spirometry, monitor for infection 5. Endo: pre-diabetic, c/u ISS-well controlled 6. GI ppx: protonix -constipation improving, c/u qHS suppository and Senokot 7. DVT ppx: heparin and TEDs-+ extensive RLE DVT with PEs s/p IVC filter, therapeutic AC contraindicated, c/u low dose heparin 8. Skin: barrier cream 9. Psych: c/u Zoloft for depression and will help with motor recovery in stroke 10. Dispo: 01-16-20 to home, progressing towards goals Allergies Coded Allergies: No Known Drug Allergies (Verified Allergy, Unknown, 12/09/19) Vital Signs Vital Signs Date Time Temp Pulse Resp B/P (MAP) Pulse Ox O2 Delivery O2 Flow Rate FiO2 01/06/20 14:00 97.7 100 18 131/71 (91) 93 Room Air Laboratory Data CBC/BMP Laboratory Tests 01/06/20 06:15 Labs 24H Laboratory Tests 2 01/05/20 16:34: Bedside Glucose (Misc Panel) 108H 01/05/20 20:13: Bedside Glucose (Misc Panel) 96 01/06/20 06:15: Immature Granulocyte % (Auto) 0.1, Neutrophils (%) (Auto) 62.3, Lymphocytes (%) (Auto) 25.8, Monocytes (%) (Auto) 9.0H, Eosinophils (%) (Auto) 2.4, Basophils (%) (Auto) 0.4, Neutrophils # (Auto) 4.2, Lymphocytes # (Auto) 1.8, Monocytes # (Auto) 0.6, Eosinophils # (Auto) 0.2, Basophils # (Auto) 0.0, Nucleated Red Blood Cells % (auto) 0.0, Anion Gap 5L, Glomerular Filtration Rate > 60.0, Calcium Level 8.7 Current Medications Current Medications Current Medications Medications (Trade) Dose Ordered Sig/Shayy Route PRN Reason Start Time Stop Time Status Last Admin Dose Admin Acetaminophen (Tylenol Tab) 650 mg Q4HP PRN PO fever/MILD PAIN (PS 1-4) 12/17/19 17:15 Amlodipine Besylate (Norvasc) 10 mg DAILY PO 12/18/19 09:00 01/06/20 08:16 Atorvastatin Calcium (Lipitor) 60 mg DAILY PO 12/18/19 09:00 01/06/20 08:15 Bisacodyl (Dulcolax Suppository) 10 mg DAILY@2000 [place] 12/31/19 20:00 12/31/19 20:20 Bisacodyl (Dulcolax Suppository) 10 mg QHS [place] 12/30/19 21:00 12/31/19 14:07 DC Dextrose (Dextrose 50%) 25 ml ASDIRECTED PRN IV SEE LABEL COMMENTS 12/17/19 17:15 Glucagon (Glucagon) 1 mg ASDIRECTED PRN SC SEE LABEL COMMENTS 12/17/19 17:15 Glucose (Glucose) 16 GM ASDIRECTED PRN PO SEE LABEL COMMENTS 12/17/19 17:15 Heparin Sodium (Porcine) (Heparin) 5,000 units Q12H SC 12/17/19 21:00 01/06/20 08:16 Insulin Human Lispro (HumaLOG INSULIN) SEE PROTOCOL TABLE AC SC 12/17/19 17:30 01/06/20 10:50 DC 01/06/20 08:17 Insulin Human Lispro (HumaLOG INSULIN) SEE PROTOCOL TABLE QHS SC 12/17/19 21:00 01/06/20 10:50 DC Lisinopril (Prinivil) 5 mg DAILY PO 12/18/19 09:00 01/06/20 08:16 Magnesium Hydroxide (Milk Of Magnesia) 30 ml DAILYPRN PRN PO CONSTIPATION 12/17/19 17:15 12/29/19 20:53 Metformin HCl (Glucophage) 500 mg DAILY@08 PO 01/06/20 08:00 01/06/20 12:05 Miscellaneous (Unresolved Clarification Entry) SEE LABEL COMMENTS DAILY XX 12/29/19 09:00 12/30/19 09:30 DC 12/29/19 11:22 Miscellaneous (Unresolved Clarification Entry) SEE LABEL COMMENTS DAILY XX 01/05/20 09:00 01/05/20 11:59 DC Ondansetron HCl (Zofran) 4 mg Q6H PO 12/23/19 12:00 01/06/20 12:05 Pantoprazole Sodium (Protonix) 40 mg DAILY PO 12/17/19 09:00 01/06/20 08:15 Senna/Docusate Sodium (Senokot S) 1 tab BID PO 12/17/19 21:00 12/30/19 14:49 DC 12/30/19 09:48 Senna/Docusate Sodium (Senokot S) 2 tab BID PO 12/30/19 21:00 01/06/20 08:15 Sertraline HCl (Zoloft) 25 mg DAILY PO 12/18/19 09:00 01/06/20 08:15 ANIYA GREWAL MD Jan 06, 2020 14:49
[2020-01-06] MEDS: BISACODYL 10 MG SUPP PR SCH (20:00)
[2020-01-06 20:50] VITALS: BP 106/63
[2020-01-07 06:00] VITALS: BP 135/78
[2020-01-07] MEDS: ONDANSETRON 4 MG TAB (S0181) PO SCH ×3 (06:00→12:00)
[2020-01-07] MEDS: SENOKOT S TAB PO SCH ×3 (09:00→20:13)
[2020-01-07] MEDS: lisinopriL 5 MG TAB PO SCH (09:13)
[2020-01-07] MEDS: HEPARIN SOD (PORCINE) 5000 UNITS/ML VIAL (J1644 PER 1000UNITS) SC SCH ×2 (09:13→20:13)
[2020-01-07] MEDS: ATORVASTATIN 20 MG TAB PO SCH (09:13)
[2020-01-07] MEDS: amLODIPine 10 MG TAB PO SCH (09:13)
[2020-01-07] MEDS: metFORMIN (GLUCOPHAGE) 500 MG TAB PO SCH (09:14)
[2020-01-07] MEDS: SERTRALINE HCL 25 MG TABLET PO SCH (09:14)
[2020-01-07] MEDS: PANTOPRAZOLE 40MG TAB (PROTONIX) PO SCH (09:14)
[2020-01-07] MEDS: REMEDY PHYTOPLEX Z-GUARD PASTE 113GM TUBE (FROM STOREROOM PRODUCT) TOP SCH ×3 (09:16→20:14)
[2020-01-07 14:00] VITALS: BP 115/64
[2020-01-07 20:00] VITALS: BP 107/60
[2020-01-07] MEDS: BISACODYL 10 MG SUPP PR SCH (20:00)
[2020-01-08 05:36] VITALS: BP 116/58
[2020-01-08] MEDS: REMEDY PHYTOPLEX Z-GUARD PASTE 113GM TUBE (FROM STOREROOM PRODUCT) TOP SCH ×3 (09:00→20:36)
[2020-01-08] MEDS: SENOKOT S TAB PO SCH ×2 (09:00→20:35)
[2020-01-08] MEDS: PANTOPRAZOLE 40MG TAB (PROTONIX) PO SCH (09:37)
[2020-01-08] MEDS: HEPARIN SOD (PORCINE) 5000 UNITS/ML VIAL (J1644 PER 1000UNITS) SC SCH ×2 (09:37→20:36)
[2020-01-08] MEDS: amLODIPine 10 MG TAB PO SCH (09:38)
[2020-01-08] MEDS: lisinopriL 5 MG TAB PO SCH (09:38)
[2020-01-08] MEDS: SERTRALINE HCL 25 MG TABLET PO SCH (09:38)
[2020-01-08] MEDS: ATORVASTATIN 20 MG TAB PO SCH (09:38)
[2020-01-08] MEDS: metFORMIN (GLUCOPHAGE) 500 MG TAB PO SCH (09:39)
[2020-01-08 14:00] VITALS: BP 134/67
[2020-01-08 20:00] VITALS: BP 104/56
[2020-01-08] MEDS: BISACODYL 10 MG SUPP PR SCH (20:00)
[2020-01-09 05:33] VITALS: BP 110/59
[2020-01-09 07:42] LABS: BASO % 0.4 % (0.0-1.0); EOS # 0.1 10^3/uL (0.0-0.5); EOS % 1.8 % (0.0-3.0); HEMATOCRIT 42.9 % (42.0-52.0); HEMOGLOBIN 14.4 g/dl (13.5-17.5); LYMPH # 1.6 10^3/uL (1.5-5.0); LYMPH % 21.2 % (24.0-44.0); MEAN CORPUSCULAR HGB CONC 33.6 g/dl (32.0-36.5); MEAN CORPUSCULAR VOLUME 92.3 fl (80.0-96.0); MONO # 0.8 10^3/uL (0.0-0.8); MONO % 10.2 % (0.0-5.0); NEUTROPHILS # 5.1 10^3/uL (1.5-8.5); PLATELET COUNT, AUTOMATED 199 10^3/uL (150-450); RED BLOOD COUNT 4.65 10^6/uL (4.30-6.10); WHITE BLOOD COUNT 7.7 10^3/uL (4.0-10.0)
[2020-01-09 08:03] LABS: BLOOD UREA NITROGEN 20 MG/DL (7-18); CALCIUM LEVEL 9.2 MG/DL (8.5-10.1); CARBON DIOXIDE LEVEL 27 MEQ/L (21-32); CHLORIDE LEVEL 104 MEQ/L (98-107); GLOMERULAR FILTRATION RATE > 60.0 (>56); GLUCOSE, FASTING 118 MG/DL (70-100); POTASSIUM SERUM 3.9 MEQ/L (3.5-5.1); SODIUM LEVEL 135 MEQ/L (136-145)
[2020-01-09 09:00] VITALS: BP 134/78
[2020-01-09] MEDS: SENOKOT S TAB PO SCH ×2 (09:00→20:53)
[2020-01-09] MEDS: REMEDY PHYTOPLEX Z-GUARD PASTE 113GM TUBE (FROM STOREROOM PRODUCT) TOP SCH ×3 (09:00→20:53)
[2020-01-09] MEDS: lisinopriL 5 MG TAB PO SCH (09:02)
[2020-01-09] MEDS: ATORVASTATIN 20 MG TAB PO SCH (09:02)
[2020-01-09] MEDS: amLODIPine 10 MG TAB PO SCH (09:02)
[2020-01-09] MEDS: SERTRALINE HCL 25 MG TABLET PO SCH (09:02)
[2020-01-09] MEDS: metFORMIN (GLUCOPHAGE) 500 MG TAB PO SCH (09:03)
[2020-01-09] MEDS: HEPARIN SOD (PORCINE) 5000 UNITS/ML VIAL (J1644 PER 1000UNITS) SC SCH ×2 (09:03→20:52)
[2020-01-09] MEDS: PANTOPRAZOLE 40MG TAB (PROTONIX) PO SCH (09:03)
--- NOTE | 2020-01-09 11:10 | IPNPDOC ---
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 REVIEW OF SYSTEMS: The following is a completed review of systems and has been reviewed. Review of systems otherwise unremarkable. PAIN: Patient self reports no pain EYES: No recent vision changes EARS, NOSE, & THROAT: No throat pain, or dysphagia, or rhinorrhea CARDIOVASCULAR: Denies chest pain or palpitations PULMONARY: Denies shortness of breath GASTROINTESTINAL: denies constipation/diarrhea GENITOURINARY: +urinary incontinence (improving) MUSCULOSKELETAL: right sided paresis NEUROLOGICAL:right sided paresis HEMATOLOGICAL: denies easy bruising SKIN: denies rash PSYCHIATRIC: Unremarkable All other review of systems found to be negative. PHYSICAL EXAMINATION: VITAL SIGNS: Please see below. GENERAL: Pleasant and cooperative. No acute distress. HEENT: PERRL. Extraocular movements intact. Clear conjunctiva, +right sided facial droop CARDIOVASCULAR: Regular rate and rhythm. No murmurs, rubs, or gallops LUNGS: Clear to auscultation bilaterally. No wheezes. No rhonchi ABDOMEN: Soft, nontender, nondistended. Positive bowel sounds. Normal active bowel sounds NEUROLOGICAL: Alert and oriented times three. Cranial nerves II through XII grossly intact. Sensation grossly intact EXTREMITIES: 5\5 strength left upper extremities. Flaccid RUE, 0\5 strength right lower extremity except for trace hip abduction. 5/5 strength in left lower extremity. RLE and foot with mild edema SKIN: blanchable sacral erythema ASSESSMENT:54-year-old M with past medical history of HTN who presents status post left basal ganglia ICH PLAN: 1. 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 Neuro: s/p left basal ganglia ICH- off antiplatelet therapy -c/u BP management and statin for secondary stroke prevention -meclizine prn for dizziness-stable -patient's dizziness resolved,repeat MRI negative for new infarct or bleed 3. Cardiac: HTN-monitor BPs and adjust prn, c/u Amlodipine and lisinopril- medicine consulted to assist in management 4. Resp: patient with mild desaturations on pulse-ox, CTA 12-24-19 + for bilateral PEs, vascular consulted s/p IVC filter placed 12-24-19 without complications- Dr. Cedeno consulted and recs appreciated -encourage incentive spirometry, monitor for infection 5. Endo: pre-diabetic, d/c's ISS and monitor FS BID as patient very well controlled on diet 6. GI ppx: protonix -constipation improving, c/u qHS suppository and Senokot 7. DVT ppx: heparin and TEDs-+ extensive RLE DVT with PEs s/p IVC filter, therapeutic AC contraindicated, c/u low dose heparin 8. Skin: barrier cream 9. Psych: c/u Zoloft for depression and will help with motor recovery in stroke 10. Dispo: 01-16-20 to home, progressing towards goals Allergies Coded Allergies: No Known Drug Allergies (Verified Allergy, Unknown, 12/09/19) Vital Signs Vital Signs Date Time Temp Pulse Resp B/P (MAP) Pulse Ox O2 Delivery O2 Flow Rate FiO2 01/09/20 09:02 86 134/78 01/09/20 05:33 96.9 18 95 Room Air Laboratory Data CBC/BMP Laboratory Tests 01/09/20 06:57 Labs 24H Laboratory Tests 2 01/08/20 11:37: Bedside Glucose (Misc Panel) 106H 01/08/20 16:55: Bedside Glucose (Misc Panel) 107H 01/09/20 05:21: Bedside Glucose (Misc Panel) 108H 01/09/20 06:57: Immature Granulocyte % (Auto) 0.4, Neutrophils (%) (Auto) 66.0, Lymphocytes (%) (Auto) 21.2L, Monocytes (%) (Auto) 10.2H, Eosinophils (%) (Auto) 1.8, Basophils (%) (Auto) 0.4, Neutrophils # (Auto) 5.1, Lymphocytes # (Auto) 1.6, Monocytes # (Auto) 0.8, Eosinophils # (Auto) 0.1, Basophils # (Auto) 0.0, Nucleated Red Blood Cells % (auto) 0.0, Anion Gap 4L, Glomerular Filtration Rate > 60.0, Calcium Level 9.2 Current Medications Current Medications Current Medications Medications (Trade) Dose Ordered Sig/Shayy Route PRN Reason Start Time Stop Time Status Last Admin Dose Admin Acetaminophen (Tylenol Tab) 650 mg Q4HP PRN PO fever/MILD PAIN (PS 1-4) 12/17/19 17:15 Amlodipine Besylate (Norvasc) 10 mg DAILY PO 12/18/19 09:00 01/09/20 09:02 Atorvastatin Calcium (Lipitor) 60 mg DAILY PO 12/18/19 09:00 01/09/20 09:02 Bisacodyl (Dulcolax Suppository) 10 mg DAILY@1999 DC 12/31/19 20:00 12/31/19 20:20 Bisacodyl (Dulcolax Suppository) 10 mg QHS DC 12/30/19 21:00 12/31/19 14:07 DC Dextrose (Dextrose 50%) 25 ml ASDIRECTED PRN IV SEE LABEL COMMENTS 12/17/19 17:15 01/09/20 09:52 DC Glucagon (Glucagon) 1 mg ASDIRECTED PRN SC SEE LABEL COMMENTS 12/17/19 17:15 01/09/20 09:52 DC Glucose (Glucose) 16 GM ASDIRECTED PRN PO SEE LABEL COMMENTS 12/17/19 17:15 01/09/20 09:52 DC Heparin Sodium (Porcine) (Heparin) 5,000 units Q12H SC 12/17/19 21:00 01/09/20 09:03 Insulin Human Lispro (HumaLOG INSULIN) SEE PROTOCOL TABLE AC SC 12/17/19 17:30 01/06/20 10:50 DC 01/06/20 08:17 Insulin Human Lispro (HumaLOG INSULIN) SEE PROTOCOL TABLE QHS SC 12/17/19 21:00 01/06/20 10:50 DC Lisinopril (Prinivil) 5 mg DAILY PO 12/18/19 09:00 01/09/20 09:02 Magnesium Hydroxide (Milk Of Magnesia) 30 ml DAILYPRN PRN PO CONSTIPATION 12/17/19 17:15 12/29/19 20:53 Metformin HCl (Glucophage) 500 mg DAILY@08 PO 01/06/20 08:00 01/09/20 09:03 Miscellaneous (Unresolved Clarification Entry) SEE LABEL COMMENTS DAILY XX 12/29/19 09:00 12/30/19 09:30 DC 12/29/19 11:22 Miscellaneous (Unresolved Clarification Entry) SEE LABEL COMMENTS DAILY XX 01/05/20 09:00 01/05/20 11:59 DC Ondansetron HCl (Zofran) 4 mg Q6H PO 12/23/19 12:00 01/07/20 14:05 DC 01/06/20 12:05 Pantoprazole Sodium (Protonix) 40 mg DAILY PO 12/17/19 09:00 01/09/20 09:03 Senna/Docusate Sodium (Senokot S) 1 tab BID PO 12/17/19 21:00 12/30/19 14:49 DC 12/30/19 09:48 Senna/Docusate Sodium (Senokot S) 2 tab BID PO 12/30/19 21:00 01/06/20 08:15 Sertraline HCl (Zoloft) 25 mg DAILY PO 12/18/19 09:00 01/09/20 09:02 ANIYA GREWAL MD Jan 09, 2020 11:10
--- NOTE | 2020-01-09 11:12 | IPNPDOC ---
PM&R Progress Note DATE OF SERVICE: Jan 08, 2020 Home Care Coordinator Progress Note Subjective: Patient reporting he is able to lift his right leg and has been working on gluteal strengthening exercises in bed. REVIEW OF SYSTEMS: The following is a completed review of systems and has been reviewed. Review of systems otherwise unremarkable. PAIN: Patient self reports no pain EYES: No recent vision changes EARS, NOSE, & THROAT: No throat pain, or dysphagia, or rhinorrhea CARDIOVASCULAR: Denies chest pain or palpitations PULMONARY: Denies shortness of breath GASTROINTESTINAL: denies constipation/diarrhea GENITOURINARY: +urinary incontinence (improving) MUSCULOSKELETAL: right sided paresis NEUROLOGICAL:right sided paresis HEMATOLOGICAL: denies easy bruising SKIN: denies rash PSYCHIATRIC: Unremarkable All other review of systems found to be negative. PHYSICAL EXAMINATION: VITAL SIGNS: Please see below. GENERAL: Pleasant and cooperative. No acute distress. HEENT: PERRL. Extraocular movements intact. Clear conjunctiva, +right sided facial droop CARDIOVASCULAR: Regular rate and rhythm. No murmurs, rubs, or gallops LUNGS: Clear to auscultation bilaterally. No wheezes. No rhonchi ABDOMEN: Soft, nontender, nondistended. Positive bowel sounds. Normal active bowel sounds NEUROLOGICAL: Alert and oriented times three. Cranial nerves II through XII grossly intact. Sensation grossly intact EXTREMITIES: 5\5 strength left upper extremities. 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 RLE and foot with mild edema SKIN: blanchable sacral erythema ASSESSMENT:54-year-old M with past medical history of HTN who presents status post left basal ganglia ICH PLAN: 1. 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 Neuro: s/p left basal ganglia ICH- off antiplatelet therapy -c/u BP management and statin for secondary stroke prevention -meclizine prn for dizziness-stable -patient's dizziness resolved,repeat MRI negative for new infarct or bleed 3. Cardiac: HTN-monitor BPs and adjust prn, c/u Amlodipine and lisinopril- medic ine consulted to assist in management 4. Resp: patient with mild desaturations on pulse-ox, CTA 12-24-19 + for bilateral PEs, vascular consulted s/p IVC filter placed 12-24-19 without complications- Dr. Cedeno consulted and recs appreciated -encourage incentive spirometry, monitor for infection 5. Endo: pre-diabetic, d/c's ISS and monitor FS BID as patient very well controlled on diet 6. GI ppx: protonix -constipation improving, c/u qHS suppository and Senokot 7. DVT ppx: heparin and TEDs-+ extensive RLE DVT with PEs s/p IVC filter, therapeutic AC contraindicated, c/u low dose heparin 8. Skin: barrier cream 9. Psych: c/u Zoloft for depression and will help with motor recovery in stroke 10. Dispo: 01-16-20 to home, progressing towards goals Allergies Coded Allergies: No Known Drug Allergies (Verified Allergy, Unknown, 12/09/19) Vital Signs Vital Signs Date Time Temp Pulse Resp B/P (MAP) Pulse Ox O2 Delivery O2 Flow Rate FiO2 01/09/20 09:02 86 134/78 01/09/20 05:33 96.9 18 95 Room Air Laboratory Data CBC/BMP Laboratory Tests 01/09/20 06:57 Labs 24H Laboratory Tests 2 01/08/20 11:37: Bedside Glucose (Misc Panel) 106H 01/08/20 16:55: Bedside Glucose (Misc Panel) 107H 01/09/20 05:21: Bedside Glucose (Misc Panel) 108H 01/09/20 06:57: Immature Granulocyte % (Auto) 0.4, Neutrophils (%) (Auto) 66.0, Lymphocytes (%) (Auto) 21.2L, Monocytes (%) (Auto) 10.2H, Eosinophils (%) (Auto) 1.8, Basophils (%) (Auto) 0.4, Neutrophils # (Auto) 5.1, Lymphocytes # (Auto) 1.6, Monocytes # (Auto) 0.8, Eosinophils # (Auto) 0.1, Basophils # (Auto) 0.0, Nucleated Red Blood Cells % (auto) 0.0, Anion Gap 4L, Glomerular Filtration Rate > 60.0, Calcium Level 9.2 Current Medications Current Medications Current Medications Medications (Trade) Dose Ordered Sig/Shayy Route PRN Reason Start Time Stop Time Status Last Admin Dose Admin Acetaminophen (Tylenol Tab) 650 mg Q4HP PRN PO fever/MILD PAIN (PS 1-4) 12/17/19 17:15 Amlodipine Besylate (Norvasc) 10 mg DAILY PO 12/18/19 09:00 01/09/20 09:02 Atorvastatin Calcium (Lipitor) 60 mg DAILY PO 12/18/19 09:00 01/09/20 09:02 Bisacodyl (Dulcolax Suppository) 10 mg DAILY@1999 DC 12/31/19 20:00 12/31/19 20:20 Bisacodyl (Dulcolax Suppository) 10 mg QHS DC 12/30/19 21:00 12/31/19 14:07 DC Dextrose (Dextrose 50%) 25 ml ASDIRECTED PRN IV SEE LABEL COMMENTS 12/17/19 17:15 01/09/20 09:52 DC Glucagon (Glucagon) 1 mg ASDIRECTED PRN SC SEE LABEL COMMENTS 12/17/19 17:15 01/09/20 09:52 DC Glucose (Glucose) 16 GM ASDIRECTED PRN PO SEE LABEL COMMENTS 12/17/19 17:15 01/09/20 09:52 DC Heparin Sodium (Porcine) (Heparin) 5,000 units Q12H SC 12/17/19 21:00 01/09/20 09:03 Insulin Human Lispro (HumaLOG INSULIN) SEE PROTOCOL TABLE AC SC 12/17/19 17:30 01/06/20 10:50 DC 01/06/20 08:17 Insulin Human Lispro (HumaLOG INSULIN) SEE PROTOCOL TABLE QHS SC 12/17/19 21:00 01/06/20 10:50 DC Lisinopril (Prinivil) 5 mg DAILY PO 12/18/19 09:00 01/09/20 09:02 Magnesium Hydroxide (Milk Of Magnesia) 30 ml DAILYPRN PRN PO CONSTIPATION 12/17/19 17:15 12/29/19 20:53 Metformin HCl (Glucophage) 500 mg DAILY@08 PO 01/06/20 08:00 01/09/20 09:03 Miscellaneous (Unresolved Clarification Entry) SEE LABEL COMMENTS DAILY XX 12/29/19 09:00 12/30/19 09:30 DC 12/29/19 11:22 Miscellaneous (Unresolved Clarification Entry) SEE LABEL COMMENTS DAILY XX 01/05/20 09:00 01/05/20 11:59 DC Ondansetron HCl (Zofran) 4 mg Q6H PO 12/23/19 12:00 01/07/20 14:05 DC 01/06/20 12:05 Pantoprazole Sodium (Protonix) 40 mg DAILY PO 12/17/19 09:00 01/09/20 09:03 Senna/Docusate Sodium (Senokot S) 1 tab BID PO 12/17/19 21:00 12/30/19 14:49 DC 12/30/19 09:48 Senna/Docusate Sodium (Senokot S) 2 tab BID PO 12/30/19 21:00 01/06/20 08:15 Sertraline HCl (Zoloft) 25 mg DAILY PO 12/18/19 09:00 01/09/20 09:02 ANIYA GREWAL MD Jan 09, 2020 11:11
--- NOTE | 2020-01-09 11:12 | IPNPDOC ---
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 He has no pain or complaints. REVIEW OF SYSTEMS: The following is a completed review of systems and has been reviewed. Review of systems otherwise unremarkable. PAIN: Patient self reports no pain EYES: No recent vision changes EARS, NOSE, & THROAT: No throat pain, or dysphagia, or rhinorrhea CARDIOVASCULAR: Denies chest pain or palpitations PULMONARY: Denies shortness of breath GASTROINTESTINAL: denies constipation/diarrhea GENITOURINARY: +urinary incontinence (improving) MUSCULOSKELETAL: right sided paresis NEUROLOGICAL:right sided paresis HEMATOLOGICAL: denies easy bruising SKIN: denies rash PSYCHIATRIC: Unremarkable All other review of systems found to be negative. PHYSICAL EXAMINATION: VITAL SIGNS: Please see below. GENERAL: Pleasant and cooperative. No acute distress. HEENT: PERRL. Extraocular movements intact. Clear conjunctiva, +right sided facial droop CARDIOVASCULAR: Regular rate and rhythm. No murmurs, rubs, or gallops LUNGS: Clear to auscultation bilaterally. No wheezes. No rhonchi ABDOMEN: Soft, nontender, nondistended. Positive bowel sounds. Normal active bowel sounds NEUROLOGICAL: Alert and oriented times three. Cranial nerves II through XII grossly intact. Sensation grossly intact EXTREMITIES: 5\5 strength left upper extremities. 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 RLE and foot with mild edema SKIN: blanchable sacral erythema ASSESSMENT:54-year-old M with past medical history of HTN who presents status post left basal ganglia ICH PLAN: 1. 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 Neuro: s/p left basal ganglia ICH- off antiplatelet therapy -c/u BP management and statin for secondary stroke prevention -meclizine prn for dizziness-stable -patient's dizziness resolved,repeat MRI negative for new infarct or bleed 3. Cardiac: HTN-monitor BPs and adjust prn, c/u Amlodipine and lisinopril- medicine consulted to assist in management 4. Resp: patient with mild desaturations on pulse-ox, CTA 12-24-19 + for bilateral PEs, vascular consulted s/p IVC filter placed 12-24-19 without complications- Dr. Cedeno consulted and recs appreciated -encourage incentive spirometry, monitor for infection 5. Endo: pre-diabetic, diet controlled, FS d/c'd 6. GI ppx: protonix -constipation improving, c/u qHS suppository and Senokot 7. DVT ppx: heparin and TEDs-+ extensive RLE DVT with PEs s/p IVC filter, therapeutic AC contraindicated, c/u low dose heparin 8. Skin: barrier cream 9. Psych: c/u Zoloft for depression and will help with motor recovery in stroke 10. Dispo: 01-16-20 to home, progressing towards goals Allergies Coded Allergies: No Known Drug Allergies (Verified Allergy, Unknown, 12/09/19) Vital Signs Vital Signs Date Time Temp Pulse Resp B/P (MAP) Pulse Ox O2 Delivery O2 Flow Rate FiO2 01/09/20 09:02 86 134/78 01/09/20 05:33 96.9 18 95 Room Air Laboratory Data CBC/BMP Laboratory Tests 01/09/20 06:57 Labs 24H Laboratory Tests 2 01/08/20 11:37: Bedside Glucose (Misc Panel) 106H 01/08/20 16:55: Bedside Glucose (Misc Panel) 107H 01/09/20 05:21: Bedside Glucose (Misc Panel) 108H 01/09/20 06:57: Immature Granulocyte % (Auto) 0.4, Neutrophils (%) (Auto) 66.0, Lymphocytes (%) (Auto) 21.2L, Monocytes (%) (Auto) 10.2H, Eosinophils (%) (Auto) 1.8, Basophils (%) (Auto) 0.4, Neutrophils # (Auto) 5.1, Lymphocytes # (Auto) 1.6, Monocytes # (Auto) 0.8, Eosinophils # (Auto) 0.1, Basophils # (Auto) 0.0, Nucleated Red Blood Cells % (auto) 0.0, Anion Gap 4L, Glomerular Filtration Rate > 60.0, Calcium Level 9.2 Current Medications Current Medications Current Medications Medications (Trade) Dose Ordered Sig/Shayy Route PRN Reason Start Time Stop Time Status Last Admin Dose Admin Acetaminophen (Tylenol Tab) 650 mg Q4HP PRN PO fever/MILD PAIN (PS 1-4) 12/17/19 17:15 Amlodipine Besylate (Norvasc) 10 mg DAILY PO 12/18/19 09:00 01/09/20 09:02 Atorvastatin Calcium (Lipitor) 60 mg DAILY PO 12/18/19 09:00 01/09/20 09:02 Bisacodyl (Dulcolax Suppository) 10 mg DAILY@1999 [place] 12/31/19 20:00 12/31/19 20:20 Bisacodyl (Dulcolax Suppository) 10 mg QHS [place] 12/30/19 21:00 12/31/19 14:07 DC Dextrose (Dextrose 50%) 25 ml ASDIRECTED PRN IV SEE LABEL COMMENTS 12/17/19 17:15 01/09/20 09:52 DC Glucagon (Glucagon) 1 mg ASDIRECTED PRN SC SEE LABEL COMMENTS 12/17/19 17:15 01/09/20 09:52 DC Glucose (Glucose) 16 GM ASDIRECTED PRN PO SEE LABEL COMMENTS 12/17/19 17:15 01/09/20 09:52 DC Heparin Sodium (Porcine) (Heparin) 5,000 units Q12H SC 12/17/19 21:00 01/09/20 09:03 Insulin Human Lispro (HumaLOG INSULIN) SEE PROTOCOL TABLE AC SC 12/17/19 17:30 01/06/20 10:50 DC 01/06/20 08:17 Insulin Human Lispro (HumaLOG INSULIN) SEE PROTOCOL TABLE QHS SC 12/17/19 21:00 01/06/20 10:50 DC Lisinopril (Prinivil) 5 mg DAILY PO 12/18/19 09:00 01/09/20 09:02 Magnesium Hydroxide (Milk Of Magnesia) 30 ml DAILYPRN PRN PO CONSTIPATION 12/17/19 17:15 12/29/19 20:53 Metformin HCl (Glucophage) 500 mg DAILY@08 PO 01/06/20 08:00 01/09/20 09:03 Miscellaneous (Unresolved Clarification Entry) SEE LABEL COMMENTS DAILY XX 12/29/19 09:00 12/30/19 09:30 DC 12/29/19 11:22 Miscellaneous (Unresolved Clarification Entry) SEE LABEL COMMENTS DAILY XX 01/05/20 09:00 01/05/20 11:59 DC Ondansetron HCl (Zofran) 4 mg Q6H PO 12/23/19 12:00 01/07/20 14:05 DC 01/06/20 12:05 Pantoprazole Sodium (Protonix) 40 mg DAILY PO 12/17/19 09:00 01/09/20 09:03 Senna/Docusate Sodium (Senokot S) 1 tab BID PO 12/17/19 21:00 12/30/19 14:49 DC 12/30/19 09:48 Senna/Docusate Sodium (Senokot S) 2 tab BID PO 12/30/19 21:00 01/06/20 08:15 Sertraline HCl (Zoloft) 25 mg DAILY PO 12/18/19 09:00 01/09/20 09:02 ANIYA GREWAL MD Jan 09, 2020 11:12
--- NOTE | 2020-01-09 13:39 | IPNPDOC ---
Text Note Date of Service The patient was seen on 01/09/20. NOTE Chief Complaint/HPI Mr Cho is a 54 year old male who was transferred to [facility] from [facility] for acute rehab secondary to a L-sided Hemorrhagic CVA on Monday. Pt stated he was at [facility] e when he noticed that his right side was numb and had become paralyzed. He reported he was transported to the ED at [facility] within 20 minutes of Sx onset. He was transferred to the ARU on December 18 for rehabilitation. Seen sitting up in his chair today, he looks well, reports he is doing well. He is scheduled to be discharged on January 15 at which time he will also have outpatient rehabilitation. He is happy that he is able to walk with the use of a walker and has regained a lot of strength in his right side. Objective Physical Examination General Exam: Positive: Alert, Cooperative, No Acute Distress Eye Exam: Positive: Conjunctiva & lids normal; Negative: Sclera icteric ENT Exam: Positive: Atraumatic, Mucous membr. moist/pink, Pharynx Normal, Tongue Midline Neck Exam: Positive: Supple; Negative: JVD, thyromegaly Chest Exam: Positive: Clear to auscultation, Normal air movement Heart Exam: Positive: Rate Normal, Regular Rhythm, Normal S1, Normal S2 Telemetry: Positive: No significant arrhythmia Abdomen Exam: Positive: Normal bowel sounds, Soft; Negative: Tenderness Extremity Exam: Negative: Clubbing, Cyanosis Skin Exam: Positive: Nl turgor and temperature Neuro Exam: Positive: Other (right-sided hemiparesis, right sided mouth droop, sensation intact, dysarthria); Negative: Normal Gait, Normal Speech Psych Exam: Positive: Mood NL Assessment /Plan Assessment Mr Cho is a 54 year old male who was transferred to [facility] from [facility] for acute rehab secondary to a Hemorrhagic CVA on Monday. Pt stated he was at home when he noticed that his right side was numb and had become paralyzed. He reported he was transported to the ED at [facility] within 20 minutes of Sx onset. He was transferred to the ARU on December 18 for rehabilitation. Pt has a PMHx which includes: DM, HTN, Morbid obesity with gastric bypass 2011, Hemorrhagic stroke. CT Head w/out contrast IMPRESSION: "1. Left acute basal ganglia intracranial hemorrhage. 2. Mild hemispheric volume loss. 3. Intracranial vascular calcification." Left CVA, with right sided hemiparesis - likely 2/2 uncontrolled HTN - continue to maintain good BP control - transferred to ARU; continued management per Dr. Lira HTN - currently well-controlled - continue Amlodipine, Lisinopril HLD - LDL 93; goal <70 with recent CVA and DM - Recommend, increasing dietary fiber; close f/u with PCP DMII -Has been switched to metformin - continue diabetic diet Depression - currently on Sertraline 25mg. Will need outpt f/u within 6 weeks. DVT prophylaxis: Heparin VS,Fishbone, I+O VS, Fishbone, I+O Laboratory Tests 01/09/20 06:57 Vital Signs Date Time Temp Pulse Resp B/P (MAP) Pulse Ox O2 Delivery O2 Flow Rate FiO2 01/09/20 09:02 86 134/78 01/09/20 05:33 96.9 18 95 Room Air I&O- Last 24 Hours up to 6 AM 01/09/20 06:00 Intake Total 900 ml Output Total 1000 ml Balance -100 ml BERTRAM VARGAS PA-C Jan 09, 2020 13:39
[2020-01-09 14:00] VITALS: BP 121/80
[2020-01-09 20:00] VITALS: BP 110/58
[2020-01-09] MEDS: BISACODYL 10 MG SUPP PR SCH (20:00)
[2020-01-10 06:00] VITALS: BP 120/58
[2020-01-10] MEDS: REMEDY PHYTOPLEX Z-GUARD PASTE 113GM TUBE (FROM STOREROOM PRODUCT) TOP SCH ×3 (09:00→19:58)
[2020-01-10] MEDS: SENOKOT S TAB PO SCH ×2 (09:00→19:58)
[2020-01-10] MEDS: HEPARIN SOD (PORCINE) 5000 UNITS/ML VIAL (J1644 PER 1000UNITS) SC SCH ×2 (09:32→19:57)
[2020-01-10] MEDS: metFORMIN (GLUCOPHAGE) 500 MG TAB PO SCH (09:32)
[2020-01-10] MEDS: ATORVASTATIN 20 MG TAB PO SCH (09:33)
[2020-01-10] MEDS: lisinopriL 5 MG TAB PO SCH (09:33)
[2020-01-10] MEDS: SERTRALINE HCL 25 MG TABLET PO SCH (09:33)
[2020-01-10] MEDS: amLODIPine 10 MG TAB PO SCH (09:33)
[2020-01-10] MEDS: PANTOPRAZOLE 40MG TAB (PROTONIX) PO SCH (09:33)
[2020-01-10 14:00] VITALS: BP 134/84
[2020-01-10] MEDS: BISACODYL 10 MG SUPP PR SCH (19:57)
[2020-01-10] MEDS: MOM 30ML SUSPENSION UDC PO PRN (19:57)
[2020-01-10 20:00] VITALS: BP 138/61
[2020-01-11 06:00] VITALS: BP 119/77
[2020-01-11] MEDS: SENOKOT S TAB PO SCH ×2 (09:00→21:00)
[2020-01-11] MEDS: REMEDY PHYTOPLEX Z-GUARD PASTE 113GM TUBE (FROM STOREROOM PRODUCT) TOP SCH ×3 (09:00→21:00)
[2020-01-11] MEDS: amLODIPine 10 MG TAB PO SCH (09:54)
[2020-01-11] MEDS: metFORMIN (GLUCOPHAGE) 500 MG TAB PO SCH (09:54)
[2020-01-11] MEDS: SERTRALINE HCL 25 MG TABLET PO SCH (09:54)
[2020-01-11] MEDS: PANTOPRAZOLE 40MG TAB (PROTONIX) PO SCH (09:54)
[2020-01-11] MEDS: lisinopriL 5 MG TAB PO SCH (09:54)
[2020-01-11] MEDS: HEPARIN SOD (PORCINE) 5000 UNITS/ML VIAL (J1644 PER 1000UNITS) SC SCH ×2 (09:55→20:52)
[2020-01-11] MEDS: ATORVASTATIN 20 MG TAB PO SCH (09:55)
[2020-01-11 14:00] VITALS: BP 120/66
[2020-01-11] MEDS: BISACODYL 10 MG SUPP PR SCH (20:00)
[2020-01-11 20:06] VITALS: BP 112/66
[2020-01-11] MEDS: ACETAMINOPHEN TAB 650MG DOSE (2X325MG) PO PRN (20:53)
[2020-01-12 05:47] VITALS: BP 122/60
[2020-01-12] MEDS: HEPARIN SOD (PORCINE) 5000 UNITS/ML VIAL (J1644 PER 1000UNITS) SC SCH ×2 (08:17→20:54)
[2020-01-12] MEDS: metFORMIN (GLUCOPHAGE) 500 MG TAB PO SCH (08:17)
[2020-01-12] MEDS: ATORVASTATIN 20 MG TAB PO SCH (08:17)
[2020-01-12] MEDS: amLODIPine 10 MG TAB PO SCH (08:17)
[2020-01-12] MEDS: SERTRALINE HCL 25 MG TABLET PO SCH (08:18)
[2020-01-12] MEDS: REMEDY PHYTOPLEX Z-GUARD PASTE 113GM TUBE (FROM STOREROOM PRODUCT) TOP SCH ×3 (08:18→20:54)
[2020-01-12] MEDS: lisinopriL 5 MG TAB PO SCH (08:18)
[2020-01-12] MEDS: PANTOPRAZOLE 40MG TAB (PROTONIX) PO SCH (08:18)
[2020-01-12] MEDS: SENOKOT S TAB PO SCH ×2 (08:19→20:54)
[2020-01-12 13:59] VITALS: BP 122/59
[2020-01-12 20:00] VITALS: BP 123/72
[2020-01-12] MEDS: BISACODYL 10 MG SUPP PR SCH (20:00)
[2020-01-12] MEDS: ACETAMINOPHEN TAB 650MG DOSE (2X325MG) PO PRN (20:54)
[2020-01-13 05:31] VITALS: BP 142/82
[2020-01-13 06:48] LABS: BASO % 0.6 % (0.0-1.0); EOS # 0.1 10^3/uL (0.0-0.5); EOS % 1.6 % (0.0-3.0); HEMATOCRIT 42.8 % (42.0-52.0); HEMOGLOBIN 14.1 g/dl (13.5-17.5); LYMPH # 2.1 10^3/uL (1.5-5.0); LYMPH % 29.9 % (24.0-44.0); MEAN CORPUSCULAR HEMOGLOBIN 30.4 pg (27.0-33.0); MEAN CORPUSCULAR HGB CONC 32.9 g/dl (32.0-36.5); MEAN CORPUSCULAR VOLUME 92.2 fl (80.0-96.0); MONO # 0.7 10^3/uL (0.0-0.8); MONO % 9.8 % (0.0-5.0); NEUTROPHILS % 57.8 % (36.0-66.0); PLATELET COUNT, AUTOMATED 187 10^3/uL (150-450); RED BLOOD COUNT 4.64 10^6/uL (4.30-6.10)
[2020-01-13 07:13] LABS: BLOOD UREA NITROGEN 18 MG/DL (7-18); CALCIUM LEVEL 9.1 MG/DL (8.5-10.1); CARBON DIOXIDE LEVEL 27 MEQ/L (21-32); CHLORIDE LEVEL 103 MEQ/L (98-107); GLOMERULAR FILTRATION RATE > 60.0 (>56); GLUCOSE, FASTING 108 MG/DL (70-100); POTASSIUM SERUM 3.9 MEQ/L (3.5-5.1); SODIUM LEVEL 136 MEQ/L (136-145)
[2020-01-13] MEDS: metFORMIN (GLUCOPHAGE) 500 MG TAB PO SCH (08:50)
[2020-01-13] MEDS: HEPARIN SOD (PORCINE) 5000 UNITS/ML VIAL (J1644 PER 1000UNITS) SC SCH ×2 (08:50→20:08)
[2020-01-13] MEDS: amLODIPine 10 MG TAB PO SCH (08:51)
[2020-01-13] MEDS: ATORVASTATIN 20 MG TAB PO SCH (08:51)
[2020-01-13] MEDS: SERTRALINE HCL 25 MG TABLET PO SCH (08:51)
[2020-01-13] MEDS: PANTOPRAZOLE 40MG TAB (PROTONIX) PO SCH (08:51)
[2020-01-13] MEDS: SENOKOT S TAB PO SCH ×2 (08:51→20:03)
[2020-01-13] MEDS: lisinopriL 5 MG TAB PO SCH (08:51)
[2020-01-13] MEDS: REMEDY PHYTOPLEX Z-GUARD PASTE 113GM TUBE (FROM STOREROOM PRODUCT) TOP SCH ×3 (08:52→20:03)
--- NOTE | 2020-01-13 10:20 | IPNPDOC ---
Text Note Date of Service The patient was seen on 01/13/20. NOTE Chief Complaint/HPI Mr Cho is a 54 year old male who was transferred to [facility] from [facility] for acute rehab secondary due to a L-sided Hemorrhagic CVA on Monday. Pt stated he was at home when he noticed that his right side was numb and had become paralyzed. He reported he was transported to the ED at [facility] within 20 minutes of Sx onset. He was transferred to the ARU on December 18 for rehabilitation. Patient is seen sitting up in his wheelchair this morning following therapy. He continues to do well. This morning he is being taught to maneuver and shower independently. He continues to look forward to going home and feels ready for it. Objective Physical Examination General Exam: Positive: Alert, Cooperative, No Acute Distress Eye Exam: Positive: Conjunctiva & lids normal; Negative: Sclera icteric ENT Exam: Positive: Atraumatic; Neck Exam: Positive: Supple; Negative: JVD, thyromegaly Chest Exam: Positive: Clear to auscultation, Normal air movement Heart Exam: Positive: Rate Normal, Regular Rhythm, Normal S1, Normal S2 Telemetry: Positive: No significant arrhythmia Abdomen Exam: Positive: Normal bowel sounds, Soft; Negative: Tenderness Extremity Exam: Negative: Clubbing, Cyanosis Skin Exam: Positive: Nl turgor and temperature Neuro Exam: Positive: Other (right-sided hemiparesis, right sided mouth droop, sensation intact, dysarthria); Negative: Normal Gait, Normal Speech Psych Exam: Positive: Mood NL Assessment /Plan Assessment Mr Cho is a 54 year old male who was transferred to [facility] from [facility] for acute rehab secondary to a Hemorrhagic CVA on Monday. Pt stated he was at home when he noticed that his right side was numb and had become paralyzed. He reported he was transported to the ED at [facility] within 20 minutes of Sx onset. He was transferred to the ARU on December 18 for rehabilitation. Pt has a PMHx which includes: DM, HTN, Morbid obesity with gastric bypass 2011, Hemorrhagic stroke. CT Head w/out contrast IMPRESSION: "1. Left acute basal ganglia intracranial hemorrhage. 2. Mild hemispheric volume loss. 3. Intracranial vascular calcification." Left CVA, with right sided hemiparesis - likely 2/2 uncontrolled HTN - continue to maintain good BP control - transferred to ARU; continued management per Dr. Lira HTN - currently well-controlled - continue Amlodipine, Lisinopril HLD - LDL 93; goal <70 with recent CVA and DM - Recommend, increasing dietary fiber; close f/u with PCP DMII -Has been switched to metformin - continue diabetic diet Depression - currently on Sertraline 25mg. Will need outpt f/u within 6 weeks. DVT prophylaxis: Heparin VS,Fishbone, I+O VS, Fishbone, I+O Laboratory Tests 01/13/20 06:19 Vital Signs Date Time Temp Pulse Resp B/P (MAP) Pulse Ox O2 Delivery O2 Flow Rate FiO2 01/13/20 08:51 142/82 01/13/20 08:51 67 01/13/20 05:31 98.1 16 96 Room Air I&O- Last 24 Hours up to 6 AM 01/13/20 06:00 Intake Total 470 ml Output Total 550 ml Balance -80 ml BERTRAM VARGAS PA-C Jan 13, 2020 10:20
[2020-01-13 14:00] VITALS: BP 121/75
[2020-01-13] MEDS: BISACODYL 10 MG SUPP PR SCH (19:18)
[2020-01-13 22:00] VITALS: BP 132/78
[2020-01-14 06:00] VITALS: BP 139/82
[2020-01-14] MEDS: metFORMIN (GLUCOPHAGE) 500 MG TAB PO SCH (08:59)
[2020-01-14] MEDS: REMEDY PHYTOPLEX Z-GUARD PASTE 113GM TUBE (FROM STOREROOM PRODUCT) TOP SCH ×3 (08:59→20:13)
[2020-01-14] MEDS: PANTOPRAZOLE 40MG TAB (PROTONIX) PO SCH (08:59)
[2020-01-14] MEDS: SERTRALINE HCL 25 MG TABLET PO SCH (08:59)
[2020-01-14] MEDS: SENOKOT S TAB PO SCH ×2 (08:59→20:12)
[2020-01-14] MEDS: amLODIPine 10 MG TAB PO SCH (08:59)
[2020-01-14] MEDS: HEPARIN SOD (PORCINE) 5000 UNITS/ML VIAL (J1644 PER 1000UNITS) SC SCH ×2 (09:00→20:12)
[2020-01-14] MEDS: lisinopriL 5 MG TAB PO SCH (09:00)
[2020-01-14] MEDS: ATORVASTATIN 20 MG TAB PO SCH (09:00)
[2020-01-14 14:00] VITALS: BP 126/67
--- NOTE | 2020-01-14 16:15 | IPNPDOC ---
PM&R Progress Note DATE OF SERVICE: Jan 14, 2020 Nursing Tech Progress Note Subjective: Patient reporting he woke up last night with his right arm overhead and he had shoulder pain which has since resolved. He states he was also able to wiggle his toes at night, but couldn't replicate it. REVIEW OF SYSTEMS: The following is a completed review of systems and has been reviewed. Review of systems otherwise unremarkable. PAIN: Patient self reports no pain EYES: No recent vision changes EARS, NOSE, & THROAT: No throat pain, or dysphagia, or rhinorrhea CARDIOVASCULAR: Denies chest pain or palpitations PULMONARY: Denies shortness of breath GASTROINTESTINAL: denies constipation/diarrhea GENITOURINARY: +urinary incontinence (improving) MUSCULOSKELETAL: right sided paresis NEUROLOGICAL:right sided paresis HEMATOLOGICAL: denies easy bruising SKIN: denies rash PSYCHIATRIC: Unremarkable All other review of systems found to be negative. PHYSICAL EXAMINATION: VITAL SIGNS: Please see below. GENERAL: Pleasant and cooperative. No acute distress. HEENT: PERRL. Extraocular movements intact. Clear conjunctiva, +right sided facial droop CARDIOVASCULAR: Regular rate and rhythm. No murmurs, rubs, or gallops LUNGS: Clear to auscultation bilaterally. No wheezes. No rhonchi ABDOMEN: Soft, nontender, nondistended. Positive bowel sounds. Normal active b owel sounds NEUROLOGICAL: Alert and oriented times three. Cranial nerves II through XII grossly intact. Sensation grossly intact EXTREMITIES: 5\5 strength left upper extremities. RUE 2/5 elbow flexors, 1/5 elbow extensors and social services designee, 2+\5 strength right hip flexion and knee extension 5/5 strength in left lower extremity. RLE and foot with mild edema (improving) Right shoulder (-) Neers/Hawkin's maneuver/scarf test, no pain with external rotation SKIN: blanchable sacral erythema ASSESSMENT:54-year-old M with past medical history of HTN who presents status post left basal ganglia ICH PLAN: 1. 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 Neuro: s/p left basal ganglia ICH- off antiplatelet therapy -c/u BP management and statin for secondary stroke prevention -meclizine prn for dizziness-stable -patient's dizziness resolved,repeat MRI negative for new infarct or bleed 3. Cardiac: HTN-monitor BPs and adjust prn, c/u Amlodipine and lisinopril- medicine consulted to assist in management 4. Resp: patient with mild desaturations on pulse-ox, CTA 12-24-19 + for bilateral PEs, vascular consulted s/p IVC filter placed 12-24-19 without complications- Dr. Cedeno consulted and recs appreciated -encourage incentive spirometry, monitor for infection 5. Endo: pre-diabetic, diet controlled, FS d/c'd 6. GI ppx: protonix -constipation improving, c/u qHS suppository and Senokot 7. DVT ppx: heparin and TEDs-+ extensive RLE DVT with PEs s/p IVC filter, therapeutic AC contraindicated, c/u low dose heparin 8. Skin: barrier cream 9. Psych: c/u Zoloft for depression and will help with motor recovery in stroke 10. Dispo: 01-16-20 to home, progressing towards goals Allergies Coded Allergies: No Known Drug Allergies (Verified Allergy, Unknown, 12/09/19) Vital Signs Vital Signs Date Time Temp Pulse Resp B/P (MAP) Pulse Ox O2 Delivery O2 Flow Rate FiO2 01/14/20 14:00 98.4 87 18 126/67 (86) 92 Room Air Laboratory Data Labs 24H Laboratory Tests 2 01/13/20 16:30: Bedside Glucose (Misc Panel) 113H 01/14/20 05:22: Bedside Glucose (Misc Panel) 110H Current Medications Current Medications Current Medications Medications (Trade) Dose Ordered Sig/Shayy Route PRN Reason Start Time Stop Time Status Last Admin Dose Admin Acetaminophen (Tylenol Tab) 650 mg Q4HP PRN PO fever/MILD PAIN (PS 1-4) 12/17/19 17:15 01/12/20 20:54 Amlodipine Besylate (Norvasc) 10 mg DAILY PO 12/18/19 09:00 01/14/20 08:59 Atorvastatin Calcium (Lipitor) 60 mg DAILY PO 12/18/19 09:00 01/14/20 09:00 Bisacodyl (Dulcolax Suppository) 10 mg DAILY@1999 AR 12/31/19 20:00 2/25/20 20:20 Bisacodyl (Dulcolax Suppository) 10 mg QHS AR 12/30/19 21:00 12/31/19 14:07 DC Dextrose (Dextrose 50%) 25 ml ASDIRECTED PRN IV SEE LABEL COMMENTS 12/17/19 17:15 01/09/20 09:52 DC Glucagon (Glucagon) 1 mg ASDIRECTED PRN SC SEE LABEL COMMENTS 12/17/19 17:15 01/09/20 09:52 DC Glucose (Glucose) 16 GM ASDIRECTED PRN PO SEE LABEL COMMENTS 12/17/19 17:15 01/09/20 09:52 DC Heparin Sodium (Porcine) (Heparin) 5,000 units Q12H SC 12/17/19 21:00 01/14/20 09:00 Insulin Human Lispro (HumaLOG INSULIN) SEE PROTOCOL TABLE AC SC 12/17/19 17:30 01/06/20 10:50 DC 01/06/20 08:17 Insulin Human Lispro (HumaLOG INSULIN) SEE PROTOCOL TABLE QHS SC 12/17/19 21:00 01/06/20 10:50 DC Lisinopril (Prinivil) 5 mg DAILY PO 12/18/19 09:00 01/14/20 09:00 Magnesium Hydroxide (Milk Of Magnesia) 30 ml DAILYPRN PRN PO CONSTIPATION 12/17/19 17:15 01/10/20 19:57 Metformin HCl (Glucophage) 500 mg DAILY@08 PO 01/06/20 08:00 01/14/20 08:59 Miscellaneous (Unresolved Clarification Entry) SEE LABEL COMMENTS DAILY XX 12/29/19 09:00 12/30/19 09:30 DC 12/29/19 11:22 Miscellaneous (Unresolved Clarification Entry) SEE LABEL COMMENTS DAILY XX 01/05/20 09:00 01/05/20 11:59 DC Miscellaneous (Unresolved Clarification Entry) SEE LABEL COMMENTS DAILY XX 01/11/20 09:00 01/12/20 09:15 DC Ondansetron HCl (Zofran) 4 mg Q6H PO 12/23/19 12:00 01/07/20 14:05 DC 01/06/20 12:05 Pantoprazole Sodium (Protonix) 40 mg DAILY PO 12/17/19 09:00 01/14/20 08:59 Senna/Docusate Sodium (Senokot S) 1 tab BID PO 12/17/19 21:00 12/30/19 14:49 DC 12/30/19 09:48 Senna/Docusate Sodium (Senokot S) 2 tab BID PO 12/30/19 21:00 01/13/20 08:51 Sertraline HCl (Zoloft) 25 mg DAILY PO 12/18/19 09:00 01/14/20 08:59 ANIYA GREWAL MD Jan 14, 2020 16:15
[2020-01-14 20:00] VITALS: BP 112/56
[2020-01-14] MEDS: BISACODYL 10 MG SUPP PR SCH (20:00)
[2020-01-15 06:00] VITALS: BP 138/76
[2020-01-15] MEDS: ATORVASTATIN 20 MG TAB PO SCH (08:01)
[2020-01-15] MEDS: HEPARIN SOD (PORCINE) 5000 UNITS/ML VIAL (J1644 PER 1000UNITS) SC SCH ×2 (08:01→20:38)
[2020-01-15] MEDS: amLODIPine 10 MG TAB PO SCH (08:02)
[2020-01-15] MEDS: SERTRALINE HCL 25 MG TABLET PO SCH (08:02)
[2020-01-15] MEDS: metFORMIN (GLUCOPHAGE) 500 MG TAB PO SCH (08:02)
[2020-01-15] MEDS: lisinopriL 5 MG TAB PO SCH (08:02)
[2020-01-15] MEDS: PANTOPRAZOLE 40MG TAB (PROTONIX) PO SCH (08:02)
[2020-01-15] MEDS: REMEDY PHYTOPLEX Z-GUARD PASTE 113GM TUBE (FROM STOREROOM PRODUCT) TOP SCH ×3 (08:03→20:39)
[2020-01-15] MEDS: SENOKOT S TAB PO SCH ×2 (08:03→20:38)
[2020-01-15 14:00] VITALS: BP 129/60
--- NOTE | 2020-01-15 16:41 | IPNPDOC ---
PM&R Progress Note DATE OF SERVICE: Jan 15, 2020 Transportation Security Officer Progress Note Transportation Security Officer Progress Note Subjective: Patient has started to work ons [employer] and does not want a ramp built, asking if he can stay longer to improve stair training. REVIEW OF SYSTEMS: The following is a completed review of systems and has been reviewed. Review of systems otherwise unremarkable. PAIN: Patient self reports no pain EYES: No recent vision changes EARS, NOSE, & THROAT: No throat pain, or dysphagia, or rhinorrhea CARDIOVASCULAR: Denies chest pain or palpitations PULMONARY: Denies shortness of breath GASTROINTESTINAL: denies constipation/diarrhea GENITOURINARY: +urinary incontinence (improving) MUSCULOSKELETAL: right sided paresis NEUROLOGICAL:right sided paresis HEMATOLOGICAL: denies easy bruising SKIN: denies rash PSYCHIATRIC: Unremarkable All other review of systems found to be negative. PHYSICAL EXAMINATION: VITAL SIGNS: Please see below. GENERAL: Pleasant and cooperative. No acute distress. HEENT: PERRL. Extraocular movements intact. Clear conjunctiva, +right sided facial droop CARDIOVASCULAR: Regular rate and rhythm. No murmurs, rubs, or gallops LUNGS: Clear to auscultation bilaterally. No wheezes. No rhonchi ABDOMEN: Soft, nontender, nondistended. Positive bowel sounds. Normal active bowel sounds NEUROLOGICAL: Alert and oriented times three. Cranial nerves II through XII grossly intact. Sensation grossly intact EXTREMITIES: 5\5 strength left upper extremities. RUE 2/5 elbow flexors, 1/5 elbow extensors and strategic procurement manager, 2+\5 strength right hip flexion and knee extension 5/5 strength in left lower extremity. RLE and foot with mild edema (improving) Right shoulder (-) Neers/Hawkin's maneuver/scarf test, no pain with external rotation SKIN: blanchable sacral erythema ASSESSMENT:54-year-old M with past medical history of HTN who presents status post left basal ganglia ICH PLAN: 1. Rehab- PT/OT advance trunk control, bed mobility, wheelchair independence, maintain ROM al 4 limbs and practice joint protection using sling for right arm and AFO for passive stretch- ok to trial Estim- roho cushion -WINDOWS 7 DEPLOYMENT LEAD- cog eval and re-evaluate for swallow 2. Neuro: s/p left basal ganglia ICH- off antiplatelet therapy -c/u BP management and statin for secondary stroke prevention -meclizine prn for dizziness-stable -patient's dizziness resolved,repeat MRI negative for new infarct or bleed 3. Cardiac: HTN-monitor BPs and adjust prn, c/u Amlodipine and lisinopril- medicine consulted to assist in management 4. Resp: patient with mild desaturations on pulse-ox, CTA 12-24-19 + for bilateral PEs, vascular consulted s/p IVC filter placed 12-24-19 without complications- Dr. Cedeno consulted and recs appreciated -encourage incentive spirometry, monitor for infection 5. Endo: pre-diabetic, diet controlled, FS d/c'd 6. GI ppx: protonix -constipation improving, c/u qHS suppository and Senokot 7. DVT ppx: heparin and TEDs-+ extensive RLE DVT with PEs s/p IVC filter, therapeutic AC contraindicated, c/u low dose heparin 8. Skin: barrier cream 9. Psych: c/u Zoloft for depression and will help with motor recovery in stroke 10. Dispo: 01-21-20 to home, progressing towards goals Allergies Coded Allergies: No Known Drug Allergies (Verified Allergy, Unknown, 12/09/19) Vital Signs Vital Signs Date Time Temp Pulse Resp B/P (MAP) Pulse Ox O2 Delivery O2 Flow Rate FiO2 01/15/20 14:00 98.3 80 18 129/60 (83) 92 Room Air Laboratory Data Labs 24H Laboratory Tests 2 01/15/20 05:55: Bedside Glucose (Misc Panel) 111H 01/15/20 16:33: Bedside Glucose (Misc Panel) 96 Current Medications Current Medications Current Medications Medications (Trade) Dose Ordered Sig/Shayy Route PRN Reason Start Time Stop Time Status Last Admin Dose Admin Acetaminophen (Tylenol Tab) 650 mg Q4HP PRN PO fever/MILD PAIN (PS 1-4) 12/17/19 17:15 01/12/20 20:54 Amlodipine Besylate (Norvasc) 10 mg DAILY PO 12/18/19 09:00 01/15/20 08:02 Atorvastatin Calcium (Lipitor) 60 mg DAILY PO 12/18/19 09:00 01/15/20 08:01 Bisacodyl (Dulcolax Suppository) 10 mg DAILY@1999 [place] 12/31/19 20:00 12/31/19 20:20 Bisacodyl (Dulcolax Suppository) 10 mg QHS NV 12/30/19 21:00 12/31/19 14:07 DC Dextrose (Dextrose 50%) 25 ml ASDIRECTED PRN IV SEE LABEL COMMENTS 12/17/19 17:15 01/09/20 09:52 DC Glucagon (Glucagon) 1 mg ASDIRECTED PRN SC SEE LABEL COMMENTS 12/17/19 17:15 01/09/20 09:52 DC Glucose (Glucose) 16 GM ASDIRECTED PRN PO SEE LABEL COMMENTS 12/17/19 17:15 01/09/20 09:52 DC Heparin Sodium (Porcine) (Heparin) 5,000 units Q12H SC 12/17/19 21:00 01/15/20 08:01 Insulin Human Lispro (HumaLOG INSULIN) SEE PROTOCOL TABLE AC SC 12/17/19 17:30 01/06/20 10:50 DC 01/06/20 08:17 Insulin Human Lispro (HumaLOG INSULIN) SEE PROTOCOL TABLE QHS SC 12/17/19 21:00 01/06/20 10:50 DC Lisinopril (Prinivil) 5 mg DAILY PO 12/18/19 09:00 01/15/20 08:02 Magnesium Hydroxide (Milk Of Magnesia) 30 ml DAILYPRN PRN PO CONSTIPATION 12/17/19 17:15 01/10/20 19:57 Metformin HCl (Glucophage) 500 mg DAILY@08 PO 01/06/20 08:00 01/15/20 08:02 Miscellaneous (Unresolved Clarification Entry) SEE LABEL COMMENTS DAILY XX 12/29/19 09:00 12/30/19 09:30 DC 12/29/19 11:22 Miscellaneous (Unresolved Clarification Entry) SEE LABEL COMMENTS DAILY XX 01/05/20 09:00 01/05/20 11:59 DC Miscellaneous (Unresolved Clarification Entry) SEE LABEL COMMENTS DAILY XX 01/15/20 09:00 01/15/20 13:53 DC Miscellaneous (Unresolved Clarification Entry) SEE LABEL COMMENTS DAILY XX 01/11/20 09:00 01/12/20 09:15 DC Ondansetron HCl (Zofran) 4 mg Q6H PO 12/23/19 12:00 01/07/20 14:05 DC 01/06/20 12:05 Pantoprazole Sodium (Protonix) 40 mg DAILY PO 12/17/19 09:00 01/15/20 08:02 Senna/Docusate Sodium (Senokot S) 1 tab BID PO 12/17/19 21:00 12/30/19 14:49 DC 12/30/19 09:48 Senna/Docusate Sodium (Senokot S) 2 tab BID PO 12/30/19 21:00 01/13/20 08:51 Sertraline HCl (Zoloft) 25 mg DAILY PO 12/18/19 09:00 01/15/20 08:02 ANIYA GREWAL MD Jan 15, 2020 16:41
[2020-01-15] MEDS: BISACODYL 10 MG SUPP PR SCH (20:00)
[2020-01-15 20:20] VITALS: BP 117/70
[2020-01-16 06:00] VITALS: BP 122/67
[2020-01-16] MEDS: ATORVASTATIN 20 MG TAB PO SCH (08:27)
[2020-01-16] MEDS: metFORMIN (GLUCOPHAGE) 500 MG TAB PO SCH (08:28)
[2020-01-16] MEDS: PANTOPRAZOLE 40MG TAB (PROTONIX) PO SCH (08:28)
[2020-01-16] MEDS: amLODIPine 10 MG TAB PO SCH (08:28)
[2020-01-16] MEDS: HEPARIN SOD (PORCINE) 5000 UNITS/ML VIAL (J1644 PER 1000UNITS) SC SCH ×2 (08:28→20:07)
[2020-01-16] MEDS: SERTRALINE HCL 25 MG TABLET PO SCH (08:28)
[2020-01-16] MEDS: lisinopriL 5 MG TAB PO SCH (08:29)
[2020-01-16] MEDS: REMEDY PHYTOPLEX Z-GUARD PASTE 113GM TUBE (FROM STOREROOM PRODUCT) TOP SCH ×4 (08:29→20:07)
[2020-01-16] MEDS: SENOKOT S TAB PO SCH ×2 (08:29→20:06)
[2020-01-16] MEDS ORDERED: SIMETHICONE 80 MG CHEW TAB PO PRN (11:45)
[2020-01-16] MEDS ORDERED: ONDANSETRON 4 MG ORAL DISINTEGRATING TAB (Q0162 PER 1MG) PO PRN (12:00)
[2020-01-16 14:00] VITALS: BP 130/64
[2020-01-16] MEDS ORDERED: BISACODYL 10 MG SUPP PR ONE (14:00)
--- NOTE | 2020-01-16 15:18 | IPNPDOC ---
PM&R Progress Note DATE OF SERVICE: Jan 16, 2020 Assembler Arranger Progress Note Subjective: Patient reporting stomach cramping and diarrhea, stating he feels like his stool is stuck and is open to trying an enema. He denies fevers, chills, or nausea. REVIEW OF SYSTEMS: The following is a completed review of systems and has been reviewed. Review of systems otherwise unremarkable. PAIN: Patient self reports no pain EYES: No recent vision changes EARS, NOSE, & THROAT: No throat pain, or dysphagia, or rhinorrhea CARDIOVASCULAR: Denies chest pain or palpitations PULMONARY: Denies shortness of breath GASTROINTESTINAL: +abdominal cramping GENITOURINARY: +urinary incontinence (resolved) MUSCULOSKELETAL: right sided paresis NEUROLOGICAL:right sided paresis HEMATOLOGICAL: denies easy bruising SKIN: denies rash PSYCHIATRIC: Unremarkable All other review of systems found to be negative. PHYSICAL EXAMINATION: VITAL SIGNS: Please see below. GENERAL: Pleasant and cooperative. No acute distress. HEENT: PERRL. Extraocular movements intact. Clear conjunctiva, +right sided facial droop CARDIOVASCULAR: Regular rate and rhythm. No murmurs, rubs, or gallops LUNGS: Clear to auscultation bilaterally. No wheezes. No rhonchi ABDOMEN: Soft, nontender, nondistended. Positive bowel sounds. Normal active bowel sounds NEUROLOGICAL: Alert and oriented times three. Cranial nerves II through XII grossly intact. Sensation grossly intact EXTREMITIES: 5\5 strength left upper extremities. RUE 2/5 elbow flexors, 1/5 elbow extensors and rn pediatric icu, 2+\5 strength right hip flexion and knee extension 5/5 strength in left lower extremity. RLE and foot with mild edema (improving) Right shoulder (-) Neers/Hawkin's maneuver/scarf test, no pain with external rotation SKIN: blanchable sacral erythema ASSESSMENT:54-year-old M with past medical history of HTN who presents status post left basal ganglia ICH PLAN: 1. 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 Neuro: s/p left basal ganglia ICH- off antiplatelet therapy -c/u BP management and statin for secondary stroke prevention -meclizine prn for dizziness-stable -patient's dizziness resolved,repeat MRI negative for new infarct or bleed 3. Cardiac: HTN-monitor BPs and adjust prn, c/u Amlodipine and lisinopril- medicine consulted to assist in management 4. Resp: patient with mild desaturations on pulse-ox, CTA 12-24-19 + for bilateral PEs, vascular consulted s/p IVC filter placed 12-24-19 without complications- Dr. Cedeno consulted and recs appreciated -encourage incentive spirometry, monitor for infection 5. Endo: pre-diabetic, on metforming, FS d/c'd 6. GI ppx: protonix -constipation improving, c/u qHS suppository and Senokot which patient has been refusing, fleet enema ordered today and simethicone 7. DVT ppx: heparin and TEDs-+ extensive RLE DVT with PEs s/p IVC filter, therapeutic AC contraindicated, c/u low dose heparin 8. Skin: barrier cream 9. Psych: c/u Zoloft for depression and will help with motor recovery in stroke 10. Dispo: 01-21-20 to home, progressing towards goals Allergies Coded Allergies: No Known Drug Allergies (Verified Allergy, Unknown, 12/09/19) Vital Signs Vital Signs Date Time Temp Pulse Resp B/P (MAP) Pulse Ox O2 Delivery O2 Flow Rate FiO2 01/16/20 08:29 130/70 01/16/20 08:28 89 01/16/20 06:00 97.6 18 96 Room Air Laboratory Data Labs 24H Laboratory Tests 2 01/15/20 16:33: Bedside Glucose (Misc Panel) 96 01/16/20 05:37: Bedside Glucose (Misc Panel) 106H Current Medications Current Medications Current Medications Medications (Trade) Dose Ordered Sig/Shayy Route PRN Reason Start Time Stop Time Status Last Admin Dose Admin Acetaminophen (Tylenol Tab) 650 mg Q4HP PRN PO fever/MILD PAIN (PS 1-4) 12/17/19 17:15 01/12/20 20:54 Amlodipine Besylate (Norvasc) 10 mg DAILY PO 12/18/19 09:00 01/16/20 08:28 Atorvastatin Calcium (Lipitor) 60 mg DAILY PO 12/18/19 09:00 01/16/20 08:27 Bisacodyl (Dulcolax Suppository) 10 mg DAILY@2000 [place] 12/31/19 20:00 12/31/19 20:20 Bisacodyl (Dulcolax Suppository) 10 mg QHS [place] 12/30/19 21:00 12/31/19 14:07 DC Dextrose (Dextrose 50%) 25 ml ASDIRECTED PRN IV SEE LABEL COMMENTS 12/17/19 17:15 01/09/20 09:52 DC Glucagon (Glucagon) 1 mg ASDIRECTED PRN SC SEE LABEL COMMENTS 12/17/19 17:15 01/09/20 09:52 DC Glucose (Glucose) 16 GM ASDIRECTED PRN PO SEE LABEL COMMENTS 12/17/19 17:15 01/09/20 09:52 DC Heparin Sodium (Porcine) (Heparin) 5,000 units Q12H SC 12/17/19 21:00 01/16/20 08:28 Insulin Human Lispro (HumaLOG INSULIN) SEE PROTOCOL TABLE AC SC 12/17/19 17:30 01/06/20 10:50 DC 01/06/20 08:17 Insulin Human Lispro (HumaLOG INSULIN) SEE PROTOCOL TABLE QHS SC 12/17/19 21:00 01/06/20 10:50 DC Lisinopril (Prinivil) 5 mg DAILY PO 12/18/19 09:00 01/16/20 08:29 Magnesium Hydroxide (Milk Of Magnesia) 30 ml DAILYPRN PRN PO CONSTIPATION 12/17/19 17:15 01/10/20 19:57 Metformin HCl (Glucophage) 500 mg DAILY@08 PO 01/06/20 08:00 01/16/20 08:28 Miscellaneous (Unresolved Clarification Entry) SEE LABEL COMMENTS DAILY XX 12/29/19 09:00 12/30/19 09:30 DC 12/29/19 11:22 Miscellaneous (Unresolved Clarification Entry) SEE LABEL COMMENTS DAILY XX 01/05/20 09:00 01/05/20 11:59 DC Miscellaneous (Unresolved Clarification Entry) SEE LABEL COMMENTS DAILY XX 01/15/20 09:00 01/15/20 13:53 DC Miscellaneous (Unresolved Clarification Entry) SEE LABEL COMMENTS DAILY XX 01/16/20 09:00 01/16/20 09:02 DC Miscellaneous (Unresolved Clarification Entry) SEE LABEL COMMENTS DAILY XX 01/16/20 09:00 01/16/20 11:09 DC Miscellaneous (Unresolved Clarification Entry) SEE LABEL COMMENTS DAILY XX 01/11/20 09:00 01/12/20 09:15 DC Ondansetron HCl (Zofran Odt) 4 mg Q6HP PRN PO NAUSEA OR VOMITING 01/16/20 12:00 Ondansetron HCl (Zofran) 4 mg Q6H PO 12/23/19 12:00 01/07/20 14:05 DC 01/06/20 12:05 Pantoprazole Sodium (Protonix) 40 mg DAILY PO 12/17/19 09:00 01/16/20 08:28 Senna/Docusate Sodium (Senokot S) 1 tab BID PO 12/17/19 21:00 12/30/19 14:49 DC 12/30/19 09:48 Senna/Docusate Sodium (Senokot S) 2 tab BID PO 12/30/19 21:00 01/13/20 08:51 Sertraline HCl (Zoloft) 25 mg DAILY PO 12/18/19 09:00 01/16/20 08:28 Simethicone (Mylicon) 80 mg TIDP PRN PO GAS PAIN 01/16/20 11:45 01/16/20 12:58 ANIYA GREWAL MD Jan 16, 2020 15:18
[2020-01-16] MEDS ORDERED: FLEET ENEMA PR ONE (16:45)
[2020-01-16] MEDS: BISACODYL 10 MG SUPP PR SCH (20:06)
[2020-01-16 21:00] VITALS: BP 138/76
[2020-01-17] MEDS: ACETAMINOPHEN TAB 650MG DOSE (2X325MG) PO PRN (00:31)
[2020-01-17 06:00] VITALS: BP 119/67
[2020-01-17 07:18] LABS: BASO % 0.3 % (0.0-1.0); EOS % 0.3 % (0.0-3.0); HEMATOCRIT 42.6 % (42.0-52.0); HEMOGLOBIN 14.5 g/dl (13.5-17.5); LYMPH # 1.6 10^3/uL (1.5-5.0); LYMPH % 13.6 % (24.0-44.0); MEAN CORPUSCULAR HEMOGLOBIN 31.4 pg (27.0-33.0); MEAN CORPUSCULAR VOLUME 92.2 fl (80.0-96.0); MONO # 1.4 10^3/uL (0.0-0.8); MONO % 12.3 % (0.0-5.0); NEUTROPHILS # 8.5 10^3/uL (1.5-8.5); NEUTROPHILS % 73.1 % (36.0-66.0); PLATELET COUNT, AUTOMATED 165 10^3/uL (150-450); RED BLOOD COUNT 4.62 10^6/uL (4.30-6.10); WHITE BLOOD COUNT 11.6 10^3/uL (4.0-10.0)
[2020-01-17 07:39] LABS: BLOOD UREA NITROGEN 21 MG/DL (7-18); CALCIUM LEVEL 9.1 MG/DL (8.5-10.1); CARBON DIOXIDE LEVEL 25 MEQ/L (21-32); CHLORIDE LEVEL 102 MEQ/L (98-107); GLOMERULAR FILTRATION RATE > 60.0 (>56); GLUCOSE, FASTING 110 MG/DL (70-100); POTASSIUM SERUM 3.5 MEQ/L (3.5-5.1); SODIUM LEVEL 136 MEQ/L (136-145)
[2020-01-17] MEDS: metFORMIN (GLUCOPHAGE) 500 MG TAB PO SCH (08:00)
[2020-01-17] MEDS: SERTRALINE HCL 25 MG TABLET PO SCH (10:21)
[2020-01-17] MEDS: lisinopriL 5 MG TAB PO SCH (10:22)
[2020-01-17] MEDS: amLODIPine 10 MG TAB PO SCH (10:22)
[2020-01-17] MEDS: PANTOPRAZOLE 40MG TAB (PROTONIX) PO SCH (10:22)
[2020-01-17] MEDS: ATORVASTATIN 20 MG TAB PO SCH (10:22)
[2020-01-17] MEDS: SENOKOT S TAB PO SCH ×2 (10:23→20:12)
[2020-01-17] MEDS: HEPARIN SOD (PORCINE) 5000 UNITS/ML VIAL (J1644 PER 1000UNITS) SC SCH ×2 (10:23→20:12)
[2020-01-17] MEDS: REMEDY PHYTOPLEX Z-GUARD PASTE 113GM TUBE (FROM STOREROOM PRODUCT) TOP SCH ×3 (10:24→20:12)
--- NOTE | 2020-01-17 11:17 | IPNPDOC ---
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 REVIEW OF SYSTEMS: The following is a completed review of systems and has been reviewed. Review of systems otherwise unremarkable. PAIN: Patient self reports no pain EYES: No recent vision changes EARS, NOSE, & THROAT: No throat pain, or dysphagia, or rhinorrhea CARDIOVASCULAR: Denies chest pain or palpitations PULMONARY: Denies shortness of breath GASTROINTESTINAL: +abdominal cramping (improving) GENITOURINARY: +urinary incontinence (resolved) MUSCULOSKELETAL: right sided paresis NEUROLOGICAL:right sided paresis HEMATOLOGICAL: denies easy bruising SKIN: denies rash PSYCHIATRIC: Unremarkable All other review of systems found to be negative. PHYSICAL EXAMINATION: VITAL SIGNS: Please see below. GENERAL: Pleasant and cooperative. No acute distress. HEENT: PERRL. Extraocular movements intact. Clear conjunctiva, +right sided facial droop CARDIOVASCULAR: Regular rate and rhythm. No murmurs, rubs, or gallops LUNGS: Clear to auscultation bilaterally. No wheezes. No rhonchi ABDOMEN: Soft, nontender, nondistended. Positive bowel sounds. Normal active bowel sounds NEUROLOGICAL: Alert and oriented times three. Cranial nerves II through XII caron sly intact. Sensation grossly intact EXTREMITIES: 5\5 strength left upper extremities. 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 RLE and foot with mild edema (improving) Right shoulder (-) Neers/Hawkin's maneuver/scarf test, no pain with external rotation SKIN: blanchable sacral erythema ASSESSMENT:54-year-old M with past medical history of HTN who presents status post left basal ganglia ICH PLAN: 1. Rehab- PT/OT advance trunk control, bed mobility, wheelchair independence, maintain ROM al 4 limbs and practice joint protection using sling for right arm and AFO for passive stretch- ok to trial Estim- roho cushion -[employer]- cog eval and re-evaluate for swallow 2. Neuro: s/p left basal ganglia ICH- off antiplatelet therapy -c/u BP management and statin for secondary stroke prevention -meclizine prn for dizziness-stable -patient's dizziness resolved,repeat MRI negative for new infarct or bleed 3. Cardiac: HTN-monitor BPs and adjust prn, c/u Amlodipine and lisinopril- medicine consulted to assist in management 4. Resp: patient with mild desaturations on pulse-ox, CTA 12-24-19 + for stephanie ateral PEs, vascular consulted s/p IVC filter placed 12-24-19 without complications- Dr. Cedeno consulted and recs appreciated -encourage incentive spirometry, monitor for infection 5. Endo: pre-diabetic, d/c metformin as may be contributing to abdominal discomfort, FS d/c'd 6. GI ppx: protonix -patient with constipation and abdominal cramping s/p enema, mild leukocytosis suspect viral enteritis 7. DVT ppx: heparin and TEDs-+ extensive RLE DVT with PEs s/p IVC filter, therapeutic AC contraindicated, c/u low dose heparin 8. Skin: barrier cream 9. Psych: c/u Zoloft for depression and will help with motor recovery in stroke 10. Dispo: 01-21-20 to home, progressing towards goals Allergies Coded Allergies: No Known Drug Allergies (Verified Allergy, Unknown, 12/09/19) Vital Signs Vital Signs Date Time Temp Pulse Resp B/P (MAP) Pulse Ox O2 Delivery O2 Flow Rate FiO2 01/17/20 10:22 119/67 01/17/20 10:22 87 01/17/20 06:00 97.5 18 92 Room Air Laboratory Data CBC/BMP Laboratory Tests 01/17/20 06:52 Labs 24H Laboratory Tests 2 01/17/20 04:40: Bedside Glucose (Misc Panel) 120H 01/17/20 06:52: Immature Granulocyte % (Auto) 0.4, Neutrophils (%) (Auto) 73.1H, Lymphocytes (%) (Auto) 13.6L, Monocytes (%) (Auto) 12.3H, Eosinophils (%) (Auto) 0.3, Basophils (%) (Auto) 0.3, Neutrophils # (Auto) 8.5, Lymphocytes # (Auto) 1.6, Monocytes # (Auto) 1.4H, Eosinophils # (Auto) 0.0, Basophils # (Auto) 0.0, Nucleated Red Blood Cells % (auto) 0.0, Anion Gap 9, Glomerular Filtration Rate > 60.0, Calcium Level 9.1 Current Medications Current Medications Current Medications Medications (Trade) Dose Ordered Sig/Shayy Route PRN Reason Start Time Stop Time Status Last Admin Dose Admin Acetaminophen (Tylenol Tab) 650 mg Q4HP PRN PO fever/MILD PAIN (PS 1-4) 12/17/19 17:15 01/17/20 00:31 Amlodipine Besylate (Norvasc) 10 mg DAILY PO 12/18/19 09:00 01/17/20 10:22 Atorvastatin Calcium (Lipitor) 60 mg DAILY PO 12/18/19 09:00 01/17/20 10:22 Bisacodyl (Dulcolax Suppository) 10 mg DAILY@1999 ND 12/31/19 20:00 01/16/20 20:06 Bisacodyl (Dulcolax Suppository) 10 mg QHS ND 12/30/19 21:00 12/31/19 14:07 DC Dextrose (Dextrose 50%) 25 ml ASDIRECTED PRN IV SEE LABEL COMMENTS 12/17/19 17:15 01/09/20 09:52 DC Glucagon (Glucagon) 1 mg ASDIRECTED PRN SC SEE LABEL COMMENTS 12/17/19 17:15 01/09/20 09:52 DC Glucose (Glucose) 16 GM ASDIRECTED PRN PO SEE LABEL COMMENTS 12/17/19 17:15 01/09/20 09:52 DC Heparin Sodium (Porcine) (Heparin) 5,000 units Q12H SC 12/17/19 21:00 01/17/20 10:23 Insulin Human Lispro (HumaLOG INSULIN) SEE PROTOCOL TABLE AC SC 12/17/19 17:30 01/06/20 10:50 DC 01/06/20 08:17 Insulin Human Lispro (HumaLOG INSULIN) SEE PROTOCOL TABLE QHS SC 12/17/19 21:00 01/06/20 10:50 DC Lisinopril (Prinivil) 5 mg DAILY PO 12/18/19 09:00 01/17/20 10:22 Magnesium Hydroxide (Milk Of Magnesia) 30 ml DAILYPRN PRN PO CONSTIPATION 12/17/19 17:15 01/10/20 19:57 Metformin HCl (Glucophage) 500 mg DAILY@08 PO 01/06/20 08:00 01/17/20 11:14 DC 01/17/20 08:00 Miscellaneous (Unresolved Clarification Entry) SEE LABEL COMMENTS DAILY XX 12/29/19 09:00 12/30/19 09:30 DC 12/29/19 11:22 Miscellaneous (Unresolved Clarification Entry) SEE LABEL COMMENTS DAILY XX 01/05/20 09:00 01/05/20 11:59 DC Miscellaneous (Unresolved Clarification Entry) SEE LABEL COMMENTS DAILY XX 01/15/20 09:00 01/15/20 13:53 DC Miscellaneous (Unresolved Clarification Entry) SEE LABEL COMMENTS DAILY XX 01/16/20 09:00 01/16/20 09:02 DC Miscellaneous (Unresolved Clarification Entry) SEE LABEL COMMENTS DAILY XX 01/16/20 09:00 01/16/20 11:09 DC Miscellaneous (Unresolved Clarification Entry) SEE LABEL COMMENTS DAILY XX 01/11/20 09:00 01/12/20 09:15 DC Ondansetron HCl (Zofran Odt) 4 mg Q6HP PRN PO NAUSEA OR VOMITING 01/16/20 12:00 Ondansetron HCl (Zofran) 4 mg Q6H PO 12/23/19 12:00 01/07/20 14:05 DC 01/06/20 12:05 Pantoprazole Sodium (Protonix) 40 mg DAILY PO 12/17/19 09:00 01/17/20 10:22 Senna/Docusate Sodium (Senokot S) 1 tab BID PO 12/17/19 21:00 12/30/19 14:49 DC 12/30/19 09:48 Senna/Docusate Sodium (Senokot S) 2 tab BID PO 12/30/19 21:00 01/17/20 10:23 Sertraline HCl (Zoloft) 25 mg DAILY PO 12/18/19 09:00 01/17/20 10:21 Simethicone (Mylicon) 80 mg TIDP PRN PO GAS PAIN 01/16/20 11:45 01/16/20 12:58 ANIYA GREWAL MD Jan 17, 2020 11:17
[2020-01-17 14:00] VITALS: BP 131/74
--- NOTE | 2020-01-17 15:58 | REP ---
KUB: Two views. History: Question fecal retention. Findings: An inferior vena cava filter is noted in place. Bowel gas pattern is unremarkable. There is mild stool in the ascending and descending colon. There is no radiographic evidence of constipation. There are degenerative spondylosis changes in the lumbar spine. Psoas margins and flank stripes are intact. No mass organomegaly seen. Impression: Normal bowel gas pattern. IVC filter in place. Electronically Signed by Roberto Carlos Jolley MD 01/17/2020 03:48 P
[2020-01-17] MEDS ORDERED: FLEET ENEMA PR ONE (16:00)
[2020-01-17] MEDS: SIMETHICONE 80 MG CHEW TAB PO SCH ×2 (17:39→20:11)
[2020-01-17 20:00] VITALS: BP 120/63
[2020-01-17] MEDS: BISACODYL 10 MG SUPP PR SCH (20:00)
[2020-01-18 05:42] VITALS: BP 137/75
[2020-01-18 07:35] LABS: BASO % 0.4 % (0.0-1.0); EOS # 0.1 10^3/uL (0.0-0.5); EOS % 1.3 % (0.0-3.0); HEMATOCRIT 42.8 % (42.0-52.0); HEMOGLOBIN 14.3 g/dl (13.5-17.5); LYMPH # 1.5 10^3/uL (1.5-5.0); LYMPH % 21.1 % (24.0-44.0); MEAN CORPUSCULAR HEMOGLOBIN 31.3 pg (27.0-33.0); MEAN CORPUSCULAR HGB CONC 33.4 g/dl (32.0-36.5); MEAN CORPUSCULAR VOLUME 93.7 fl (80.0-96.0); MONO # 0.7 10^3/uL (0.0-0.8); MONO % 10.6 % (0.0-5.0); NEUTROPHILS # 4.6 10^3/uL (1.5-8.5); NEUTROPHILS % 66.2 % (36.0-66.0); PLATELET COUNT, AUTOMATED 169 10^3/uL (150-450); RED BLOOD COUNT 4.57 10^6/uL (4.30-6.10)
[2020-01-18 08:04] LABS: BLOOD UREA NITROGEN 20 MG/DL (7-18); CALCIUM LEVEL 8.8 MG/DL (8.5-10.1); CARBON DIOXIDE LEVEL 31 MEQ/L (21-32); CHLORIDE LEVEL 100 MEQ/L (98-107); CREATININE FOR GFR 0.86 MG/DL (0.70-1.30); GLOMERULAR FILTRATION RATE > 60.0 (>56); GLUCOSE, FASTING 112 MG/DL (70-100); POTASSIUM SERUM 3.2 MEQ/L (3.5-5.1); SODIUM LEVEL 135 MEQ/L (136-145)
[2020-01-18] MEDS: PANTOPRAZOLE 40MG TAB (PROTONIX) PO SCH (08:20)
[2020-01-18] MEDS: ATORVASTATIN 20 MG TAB PO SCH (08:20)
[2020-01-18] MEDS: SERTRALINE HCL 25 MG TABLET PO SCH (08:20)
[2020-01-18] MEDS: SIMETHICONE 80 MG CHEW TAB PO SCH ×3 (08:20→20:00)
[2020-01-18] MEDS: lisinopriL 5 MG TAB PO SCH (08:21)
[2020-01-18] MEDS: REMEDY PHYTOPLEX Z-GUARD PASTE 113GM TUBE (FROM STOREROOM PRODUCT) TOP SCH ×3 (08:21→20:01)
[2020-01-18] MEDS: SENOKOT S TAB PO SCH ×2 (08:21→20:01)
[2020-01-18] MEDS: amLODIPine 10 MG TAB PO SCH (08:21)
[2020-01-18] MEDS: HEPARIN SOD (PORCINE) 5000 UNITS/ML VIAL (J1644 PER 1000UNITS) SC SCH ×2 (08:21→20:00)
[2020-01-18] MEDS ORDERED: POTASSIUM CHLORIDE 10 MEQ SR TABLET PO ONE (10:00)
--- NOTE | 2020-01-18 10:18 | IPNPDOC ---
Text Note Date of Service The patient was seen on 01/18/20. NOTE Subjective: Patient is a 54-year-old male with a PMHx of HTN, DM2, Morbid obesity with gastric bypass (2011) who presented to the ARU as a transfer fro [facility] on 12/18/2019 for rehabilitation after sustaining a hemorrhagic stroke. Patient reported that he had noticed right-sided numbness and had become paralyzed and was urgently transported to [facility]. Patient was seen and examined at the bedside. Currently patient has no new complaints. He did report experiencing abdominal discomfort and constipation yesterday. Today he reports that he is not expressing any chest pain, shortness of breath, palpitations, nausea, vomiting, any abdominal discomfort today. Has reported that his last bowel movement was yesterday afternoon. Denies any urinary discomfort Objective: Vitals (See below) General: Lying in bed, no acute distress, comfortable, AAOx3 HEENT: NC, AT CVS: RRR, +S1S2 Lungs: Fair air entry b/l, no appreciable wheezing, rhonchi or rales Abdomen: Soft, remains nondistended and there is no appreciable tenderness Extremities: - Edema, - Calf tenderness Assessment and plan: Left Hemorrhagic CVA, with right sided hemiparesis - likely 2/2 uncontrolled HTN - MRI Brain 12/23: Re-demonstration of a lobular marginated intracranial hemorrhage in the left basal ganglia extending to the subinsular region. There is mild mass effect on the lateral ventricle on the left. - Continues to work with PT / OT at the direction of ARU s/p Abdominal pain - possibly 2/2 constipation - Reported significant improvement in symptoms after a BM yesterday afternoon - Remains afebrile / hemodynamically stable - No tenderness on physical exam, - s/p Mild leukocytosis - XR abdomen 01/16: Normal bowel gas pattern. IVC filter in place. - c/w Bowel regimen as ordered HTN - BP is currently well controlled - c/w Amlodipine and Lisinopril DLP - LDL 93; goal <70 with recent CVA and DM - c/w Atorvastatin DM2 - Currently off Metformin Depression - c/w Sertraline GI prophylaxis - c/w Protonix DVT prophylaxis - c/w Heparin VS,Fishbone, I+O VS, Fishbone, I+O Laboratory Tests 01/18/20 07:07 Vital Signs Date Time Temp Pulse Resp B/P (MAP) Pulse Ox O2 Delivery O2 Flow Rate FiO2 01/18/20 08:21 137/75 01/18/20 08:21 73 01/18/20 05:42 98.1 18 94 Room Air I&O- Last 24 Hours up to 6 AM 01/18/20 06:00 Intake Total 1570 ml Output Total 1300 ml Balance 270 ml AFSANEH BAZAN MD Jan 18, 2020 10:18
[2020-01-18 14:00] VITALS: BP 116/64
[2020-01-18 20:00] VITALS: BP 115/60
[2020-01-18] MEDS: BISACODYL 10 MG SUPP PR SCH (20:00)
[2020-01-19 06:00] VITALS: BP 127/63
[2020-01-19 08:01] LABS: BLOOD UREA NITROGEN 18 MG/DL (7-18); CARBON DIOXIDE LEVEL 30 MEQ/L (21-32); CHLORIDE LEVEL 103 MEQ/L (98-107); CREATININE FOR GFR 0.76 MG/DL (0.70-1.30); GLOMERULAR FILTRATION RATE > 60.0 (>56); GLUCOSE, FASTING 116 MG/DL (70-100); POTASSIUM SERUM 3.5 MEQ/L (3.5-5.1); SODIUM LEVEL 137 MEQ/L (136-145)
[2020-01-19] MEDS: SENOKOT S TAB PO SCH ×2 (09:00→20:24)
[2020-01-19] MEDS: HEPARIN SOD (PORCINE) 5000 UNITS/ML VIAL (J1644 PER 1000UNITS) SC SCH ×2 (09:14→20:24)
[2020-01-19] MEDS: SIMETHICONE 80 MG CHEW TAB PO SCH ×3 (09:15→20:23)
[2020-01-19] MEDS: lisinopriL 5 MG TAB PO SCH (09:15)
[2020-01-19] MEDS: amLODIPine 10 MG TAB PO SCH (09:15)
[2020-01-19] MEDS: SERTRALINE HCL 25 MG TABLET PO SCH (09:15)
[2020-01-19] MEDS: ATORVASTATIN 20 MG TAB PO SCH (09:15)
[2020-01-19] MEDS: PANTOPRAZOLE 40MG TAB (PROTONIX) PO SCH (09:15)
[2020-01-19] MEDS: REMEDY PHYTOPLEX Z-GUARD PASTE 113GM TUBE (FROM STOREROOM PRODUCT) TOP SCH ×3 (09:16→20:24)
[2020-01-19 14:00] VITALS: BP 112/64
[2020-01-19 20:00] VITALS: BP 134/81
[2020-01-19] MEDS: BISACODYL 10 MG SUPP PR SCH (20:00)
[2020-01-20 06:00] VITALS: BP 127/59
[2020-01-20 07:25] LABS: BASO % 0.5 % (0.0-1.0); EOS # 0.1 10^3/uL (0.0-0.5); EOS % 0.9 % (0.0-3.0); HEMATOCRIT 43.9 % (42.0-52.0); HEMOGLOBIN 14.9 g/dl (13.5-17.5); LYMPH # 1.7 10^3/uL (1.5-5.0); LYMPH % 21.5 % (24.0-44.0); MEAN CORPUSCULAR HEMOGLOBIN 31.4 pg (27.0-33.0); MEAN CORPUSCULAR HGB CONC 33.9 g/dl (32.0-36.5); MEAN CORPUSCULAR VOLUME 92.6 fl (80.0-96.0); MONO # 0.7 10^3/uL (0.0-0.8); MONO % 8.6 % (0.0-5.0); NEUTROPHILS # 5.4 10^3/uL (1.5-8.5); NEUTROPHILS % 68.2 % (36.0-66.0); PLATELET COUNT, AUTOMATED 187 10^3/uL (150-450); RED BLOOD COUNT 4.74 10^6/uL (4.30-6.10); WHITE BLOOD COUNT 7.9 10^3/uL (4.0-10.0)
[2020-01-20 07:51] LABS: BLOOD UREA NITROGEN 17 MG/DL (7-18); CALCIUM LEVEL 9.3 MG/DL (8.5-10.1); CARBON DIOXIDE LEVEL 29 MEQ/L (21-32); CHLORIDE LEVEL 104 MEQ/L (98-107); CREATININE FOR GFR 0.82 MG/DL (0.70-1.30); GLOMERULAR FILTRATION RATE > 60.0 (>56); GLUCOSE, FASTING 115 MG/DL (70-100); POTASSIUM SERUM 3.8 MEQ/L (3.5-5.1); SODIUM LEVEL 136 MEQ/L (136-145)
[2020-01-20] MEDS: HEPARIN SOD (PORCINE) 5000 UNITS/ML VIAL (J1644 PER 1000UNITS) SC SCH ×2 (08:31→20:08)
[2020-01-20] MEDS: PANTOPRAZOLE 40MG TAB (PROTONIX) PO SCH (08:32)
[2020-01-20] MEDS: SENOKOT S TAB PO SCH ×2 (08:32→20:08)
[2020-01-20] MEDS: SIMETHICONE 80 MG CHEW TAB PO SCH ×3 (08:32→20:08)
[2020-01-20] MEDS: amLODIPine 10 MG TAB PO SCH (08:32)
[2020-01-20] MEDS: lisinopriL 5 MG TAB PO SCH (08:32)
[2020-01-20] MEDS: SERTRALINE HCL 25 MG TABLET PO SCH (08:32)
[2020-01-20] MEDS: ATORVASTATIN 20 MG TAB PO SCH (08:33)
[2020-01-20] MEDS: REMEDY PHYTOPLEX Z-GUARD PASTE 113GM TUBE (FROM STOREROOM PRODUCT) TOP SCH ×3 (08:33→20:09)
[2020-01-20] MEDS ORDERED: AMLO10TA5 PO (10:56)
[2020-01-20] MEDS ORDERED: ATOR1TAB21 PO (10:56)
[2020-01-20] MEDS ORDERED: SERT25TA21 PO (10:56)
[2020-01-20] MEDS ORDERED: LISI-542 PO (10:56)
[2020-01-20] MEDS ORDERED: SENN-52 PO (10:56)
[2020-01-20 14:00] VITALS: BP_SYST 116; BP_SYST 160; BP_DIAS 63; BP_DIAS 69
[2020-01-20 20:00] VITALS: BP 103/58
[2020-01-20] MEDS: BISACODYL 10 MG SUPP PR SCH (20:00)
[2020-01-21 06:00] VITALS: BP 107/59
[2020-01-21] MEDS: REMEDY PHYTOPLEX Z-GUARD PASTE 113GM TUBE (FROM STOREROOM PRODUCT) TOP SCH (09:00)
[2020-01-21] MEDS: lisinopriL 5 MG TAB PO SCH (10:02)
[2020-01-21] MEDS: PANTOPRAZOLE 40MG TAB (PROTONIX) PO SCH (10:02)
[2020-01-21] MEDS: HEPARIN SOD (PORCINE) 5000 UNITS/ML VIAL (J1644 PER 1000UNITS) SC SCH (10:02)
[2020-01-21 10:03] VITALS: BP 113/62
[2020-01-21] MEDS: SENOKOT S TAB PO SCH (10:03)
[2020-01-21] MEDS: SERTRALINE HCL 25 MG TABLET PO SCH (10:03)
[2020-01-21] MEDS: amLODIPine 10 MG TAB PO SCH (10:03)
[2020-01-21] MEDS: ATORVASTATIN 20 MG TAB PO SCH (10:03)
[2020-01-21] MEDS: SIMETHICONE 80 MG CHEW TAB PO SCH (10:03)
--- NOTE | 2020-01-21 14:57 | IPNPDOC ---
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 REVIEW OF SYSTEMS: The following is a completed review of systems and has been reviewed. Review of systems otherwise unremarkable. PAIN: Patient self reports no pain EYES: No recent vision changes EARS, NOSE, & THROAT: No throat pain, or dysphagia, or rhinorrhea CARDIOVASCULAR: Denies chest pain or palpitations PULMONARY: Denies shortness of breath GASTROINTESTINAL: +abdominal cramping (improving) GENITOURINARY: +urinary incontinence (resolved) MUSCULOSKELETAL: right sided paresis NEUROLOGICAL:right sided paresis HEMATOLOGICAL: denies easy bruising SKIN: denies rash PSYCHIATRIC: Unremarkable All other review of systems found to be negative. PHYSICAL EXAMINATION: VITAL SIGNS: Please see below. GENERAL: Pleasant and cooperative. No acute distress. HEENT: PERRL. Extraocular movements intact. Clear conjunctiva, +right sided facial droop CARDIOVASCULAR: Regular rate and rhythm. No murmurs, rubs, or gallops LUNGS: Clear to auscultation bilaterally. No wheezes. No rhonchi ABDOMEN: Soft, nontender, nondistended. Positive bowel sounds. Normal active bowel sounds NEUROLOGICAL: Alert and oriented times three. Cranial nerves II through XII grossly intact. Sensation grossly intact EXTREMITIES: 5\5 strength left upper extremities. RUE 2/5 elbow flexors, 1/5 elbow extensors and resaw tailer, 2+\5 strength right hip flexion and knee extension 5/5 strength in left lower extremity. RLE and foot with mild edema (improving) Right shoulder (-) Neers/Hawkin's maneuver/scarf test, no pain with external rotation SKIN: blanchable sacral erythema ASSESSMENT:54-year-old M with past medical history of HTN who presents status post left basal ganglia ICH PLAN: 1. 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 Neuro: s/p left basal ganglia ICH- off antiplatelet therapy -c/u BP management and statin for secondary stroke prevention -meclizine prn for dizziness-stable -patient's dizziness resolved,repeat MRI negative for new infarct or bleed 3. Cardiac: HTN-monitor BPs and adjust prn, c/u Amlodipine and lisinopril- medicine consulted to assist in management 4. Resp: patient with mild desaturations on pulse-ox, CTA 12-24-19 + for bilateral PEs, vascular consulted s/p IVC filter placed 12-24-19 without complications- Dr. Cedeno consulted and recs appreciated -encourage incentive spirometry, monitor for infection 5. Endo: pre-diabetic, d/c metformin as may be contributing to abdominal discomfort, FS d/c'd 6. GI ppx: protonix -patient with constipation and abdominal cramping s/p enema, mild leukocytosis has resolved suspect viral enteritis- resolved -KUB 01-17-20 negative for obstruction 7. DVT ppx: heparin and TEDs-+ extensive RLE DVT with PEs s/p IVC filter, therapeutic AC contraindicated, c/u low dose heparin 8. Skin: barrier cream 9. Psych: c/u Zoloft for depression and will help with motor recovery in stroke 10. Dispo: 01-21-20 to home, progressing towards goals Allergies Coded Allergies: No Known Drug Allergies (Verified Allergy, Unknown, 12/09/19) Vital Signs Vital Signs Date Time Temp Pulse Resp B/P (MAP) Pulse Ox O2 Delivery O2 Flow Rate FiO2 01/21/20 10:03 68 113/62 01/21/20 06:00 97.4 18 97 Room Air Laboratory Data Labs 24H Laboratory Tests 2 01/21/20 06:21: Bedside Glucose (Misc Panel) 96 Current Medications Current Medications Current Medications Medications (Trade) Dose Ordered Sig/Shayy Route PRN Reason Start Time Stop Time Status Last Admin Dose Admin Acetaminophen (Tylenol Tab) 650 mg Q4HP PRN PO fever/MILD PAIN (PS 1-4) 12/17/19 17:15 01/17/20 00:31 Amlodipine Besylate (Norvasc) 10 mg DAILY PO 12/18/19 09:00 01/21/20 10:03 Atorvastatin Calcium (Lipitor) 60 mg DAILY PO 12/18/19 09:00 01/21/20 10:03 Bisacodyl (Dulcolax Suppository) 10 mg DAILY@1999 [place] 12/31/19 20:00 01/16/20 20:06 Bisacodyl (Dulcolax Suppository) 10 mg QHS [place] 12/30/19 21:00 12/31/19 14:07 DC Dextrose (Dextrose 50%) 25 ml ASDIRECTED PRN IV SEE LABEL COMMENTS 12/17/19 17:15 01/09/20 09:52 DC Glucagon (Glucagon) 1 mg ASDIRECTED PRN SC SEE LABEL COMMENTS 12/17/19 17:15 01/09/20 09:52 DC Glucose (Glucose) 16 GM ASDIRECTED PRN PO SEE LABEL COMMENTS 12/17/19 17:15 01/09/20 09:52 DC Heparin Sodium (Porcine) (Heparin) 5,000 units Q12H SC 12/17/19 21:00 01/21/20 10:02 Insulin Human Lispro (HumaLOG INSULIN) SEE PROTOCOL TABLE AC SC 12/17/19 17:30 01/06/20 10:50 DC 01/06/20 08:17 Insulin Human Lispro (HumaLOG INSULIN) SEE PROTOCOL TABLE QHS SC 12/17/19 21:00 01/06/20 10:50 DC Lisinopril (Prinivil) 5 mg DAILY PO 12/18/19 09:00 01/21/20 10:02 Magnesium Hydroxide (Milk Of Magnesia) 30 ml DAILYPRN PRN PO CONSTIPATION 12/17/19 17:15 01/10/20 19:57 Metformin HCl (Glucophage) 500 mg DAILY@08 PO 01/06/20 08:00 01/17/20 11:14 DC 01/17/20 08:00 Miscellaneous (Unresolved Clarification Entry) SEE LABEL COMMENTS DAILY XX 12/29/19 09:00 12/30/19 09:30 DC 12/29/19 11:22 Miscellaneous (Unresolved Clarification Entry) SEE LABEL COMMENTS DAILY XX 01/05/20 09:00 01/05/20 11:59 DC Miscellaneous (Unresolved Clarification Entry) SEE LABEL COMMENTS DAILY XX 01/15/20 09:00 01/15/20 13:53 DC Miscellaneous (Unresolved Clarification Entry) SEE LABEL COMMENTS DAILY XX 01/16/20 09:00 01/16/20 09:02 DC Miscellaneous (Unresolved Clarification Entry) SEE LABEL COMMENTS DAILY XX 01/16/20 09:00 01/16/20 11:09 DC Miscellaneous (Unresolved Clarification Entry) SEE LABEL COMMENTS DAILY XX 01/11/20 09:00 01/12/20 09:15 DC Ondansetron HCl (Zofran Odt) 4 mg Q6HP PRN PO NAUSEA OR VOMITING 01/16/20 12:00 Ondansetron HCl (Zofran) 4 mg Q6H PO 12/23/19 12:00 01/07/20 14:05 DC 01/06/20 12:05 Pantoprazole Sodium (Protonix) 40 mg DAILY PO 12/17/19 09:00 01/21/20 10:02 Senna/Docusate Sodium (Senokot S) 1 tab BID PO 12/17/19 21:00 12/30/19 14:49 DC 12/30/19 09:48 Senna/Docusate Sodium (Senokot S) 2 tab BID PO 12/30/19 21:00 01/21/20 10:03 Sertraline HCl (Zoloft) 25 mg DAILY PO 12/18/19 09:00 01/21/20 10:03 Simethicone (Mylicon) 80 mg TID PO 01/17/20 16:00 01/21/20 10:03 Simethicone (Mylicon) 80 mg TIDP PRN PO GAS PAIN 01/16/20 11:45 01/17/20 15:55 DC 01/16/20 12:58 ANIYA GREWAL MD Jan 21, 2020 14:57
--- NOTE | 2020-01-22 15:21 | PMRDS ---
DATE OF ADMISSION: 12/17/2019 DATE OF DISCHARGE: 01/21/2020 CHIEF COMPLAINT/DISCHARGE DIAGNOSIS: Stroke. HISTORY OF PRESENT ILLNESS: 54M pmh HTN, gastric bypass 2011, morbid obesity presented to [facility] ED on 12-09-19 with right sided weakness, with CTH showing, Left acute basal ganglia intracranial hemorrhage. He was transferred to [facility] for further management and readmitted to [facility] on 12-14-19 where he was continued to be monitored for elevated BPs and started on an anti-depressant. He blood pressure medications were adjusted for persistent elevations and he was started on insulin sliding scale coverage for his newly diagnosed pre-diabetes. He was evaluated by therapy, had significant impairment sin mobility and ADL management and deemed medically appropriate for discharge to ARU on 12-17-19. PAST MEDICAL HISTORY: As per history of present illness (HPI). HOSPITAL COURSE: The patient was admitted on a comprehensive physical therapy (PT), occupational therapy (OT), speech language pathology program. He received 24-hour nursing supervision and weekly team meetings were held to discuss his progress. The patient was diagnosed with bilateral pulmonary embolisms (PEs) in the setting of a right lower extremity complex deep venous thrombosis (DVT) and inferior vena cava (IVC) filter was placed on 12/24/2019 without complication. The patient was maintained on prophylactic heparin for DVT prophylaxis. All other antiplatelets and anticoagulants were held in the setting of a recent intracranial hemorrhage. The patient's blood pressures were well-controlled during hospital course in addition to his finger sticks for which he was ultimately taken off of the sliding-scale coverage and metformin. He made consistent and significant gains in therapy and was deemed medically and functionally stable to return home discharge medications as per instructions. FUNCTIONAL HISTORY: On discharge, the patient was standby assist for functional transfers, at times contact guard assist with the use a camryn walker and BARROSO step. Able to ambulate 110 feet. He was contact guard for stairs. Thank you for this referral.
== END 2020-01-21 14:45 | disposition home health service (06) | DRG 58 ==
LOC: M PM&R 16:10
PROVIDERS: ADMIT Physical Medicine & Rehabilitation; ATTEND Physical Medicine & Rehabilitation
PROC: 06H03DZ Insertion of Intraluminal Device into Inferior Vena Cava, Percutaneous Approach (ICD-10-PCS; principal; 2019-12-24 17:03)
DX: I69.251 Hemiplegia and hemiparesis following other nontraumatic intracranial hemorrhage affecting right dominant side (principal); I82.411 Acute embolism and thrombosis of right femoral vein; I10 Essential (primary) hypertension; I82.431 Acute embolism and thrombosis of right popliteal vein; Z68.41 Body mass index [BMI] 40.0-44.9, adult; E66.01 Morbid (severe) obesity due to excess calories; E78.2 Mixed hyperlipidemia; E11.9 Type 2 diabetes mellitus without complications; Z79.899 Other long term (current) drug therapy; K59.00 Constipation, unspecified; F32.9 Major depressive disorder, single episode, unspecified

== ENCOUNTER 2020-04-15 13:00 | Outpatient (RCR) | payer MEDICAID, OTHER ==
[~2020-04-15 13:00] MED LIST changes: +ATOR1TAB21 PO; +MOM30SS2 PO; +SENN-52 PO; +SERT25TA21 PO
== END 2020-05-05 ==
LOC: M OT 13:00
PROVIDERS: ATTEND Physician Assistant Medical
DX: G46.4 Cerebellar stroke syndrome (principal)

== ENCOUNTER → 2020-07-20 | Outpatient (REF) | payer OTHER ==
[~2020-07-20] MED LIST changes: -AMLO10TA5 PO; +AMLO1TAB25 PO
== END ==
LOC: M LAB REF 15:27
PROVIDERS: ATTEND Otolaryngology
DX: E04.1 Nontoxic single thyroid nodule (principal); R89.8 Other abnormal findings in specimens from other organs, systems and tissues